=== PATIENT | male | born 1945 | race Caucasian/White ===

== ENCOUNTER 2018-12-01 04:28 | Inpatient (IN) | payer OTHER ==
[2018-12-01] MEDS ORDERED: ACETAMINOPHEN 1000 MG/100 ML VIAL (NON FORMULARY) IVPB ONE (04:38)
[2018-12-01] MEDS ORDERED: LACTATED RINGERS SOLUTION 1000 ML INFUS.BAG IV ONE (04:39)
--- NOTE | 2018-12-01 04:43 | PDOC ---
Attending Attestation - Resident Resident Name: Leonel Cesar - ED Attending Attestation I have performed the following: I have examined & evaluated the patient, The case was reviewed & discussed with the resident, I agree w/resident's findings & plan - HPI HPI: 12/01/18 05:35 73-year-old male with fever sent from an extended care facility with decreased oxygen saturation, tracheostomy in place - Physicial Exam PE: 12/01/18 05:36 Agree with resident's exam - Critical Care Time Total Critical Care Time: 45 Critical Care Statement: The care of this patient involved high complexity decision making to prevent further life threatening deterioration of the patient 's condition and/or to evaluate & treat vital organ system(s) failure or risk of failure. - Medical Decision Making 12/01/18 05:37 73-year-old male with fever , patient has what appears to be tube feedings at the tracheostomy site possibly suggesting aspiration Chest x-ray is extremely poor quality though left lower lobe infiltrate cannot be excluded Zosyn and vancomycin initiated Plan for admission to ICU due to decreasing blood pressures and elevated lactic acid level Patient's son has been in the emergency department and has been notified by ED staff S was follows condition
[2018-12-01 04:59] LABS: BASO % 0.7 % (0-2.0); EOS % 0.3 % (0-4.5); HEMATOCRIT 36.3 % (35.4-49); HEMOGLOBIN 11.3 GM/dL (11.7-16.9); LYMPH % 16.8 % (8-40); MCH 27.7 pg (25.7-33.7); MEAN CELL VOLUME 89.4 fl (80-96); MEAN PLT VOLUME 8.6 fl (7.5-11.1); MONO % 8.9 % (3.8-10.2); NEUT % 73.3 % (42.8-82.8); PLATELET COUNT 203 K/MM3 (134-434); RBC 4.06 M/mm3 (4.00-5.60); RDW 18.3 % (11.9-15.9)
[2018-12-01 05:02] LABS: WHITE BLOOD COUNT 1.7 K/mm3 (4.0-10.0)
[2018-12-01 05:06] LABS: URINE APPEARANCE CLEAR; URINE BILIRUBIN NEGATIVE (NEGATIVE); URINE COLOR YELLOW; URINE GLUCOSE (UA) NEGATIVE (NEGATIVE); URINE KETONE NEGATIVE (NEGATIVE); URINE LEUK ESTERASE NEGATIVE (NEGATIVE); URINE NITRITE NEGATIVE (NEGATIVE); URINE PROTEIN TRACE (NEGATIVE); URINE UROBILINOGEN 0.2 mg/dL (0.2-1.0)
[2018-12-01 05:12] LABS: INR 1.15 (0.83-1.09); PROTHROMBIN TIME (PATIENT) 13.6 SEC (9.7-13.0)
[2018-12-01 05:14] LABS: ACTIVATED PTT 27.1 SECONDS (25.2-36.5)
[2018-12-01] MEDS ORDERED: PIPERACILLIN/TAZOB 4.5 GM 4.5 GM in DEXTROSE 5%-WATER 100 ML IVPB ONE (05:20)
[2018-12-01] MEDS ORDERED: VANCOMYCIN HCL 1,500 MG in DEXTROSE 5%-WATER - 500 ML IVPB ONE (05:20)
--- NOTE | 2018-12-01 05:20 | PDOC ---
History of Present Illness - General Chief Complaint: SIRS, Suspected/Possible Stated Complaint: SEPSIS Time Seen by Provider: 12/01/18 04:37 History Source: Family (Son present at bedside.), [place] Records Exam Limitations: Clinical Condition - History of Present Illness Initial Comments: HPI: 73 y/o male BIBEMS to [facility] ER from [facility] with fever of 106, tachycardia, and hypoxic to high 80s (per EMS crew). The pt is trach and PEG dependent s/p CVA approx. one month ago. Care was provided at [facility]. Pt was discharged to [facility] on Wednesday. On arrival, the pt is unable to provide a HPI secondary to clinical condition. Son is also present at bedside, but is unable to provide details of medical history. He does report the pt had a fever around 100 yesterday but is unaware of the cause. Son reports the pt is normally able to follow commands but is unable to speak. Code status: Full code per son. PCP: Dr. Marti (in the Normal) Medical Hx: - CVA w/ left sided hemiparesis - S/p right sided craniotomy - S/p trach and PEG - HTN - Diabetes - BPH Review of Systems: Unable to obtain secondary to pts clinical condition. Physical Examination: Constitutional: Toxic appearing adult male. Initially found on EMS stretcher in resus room. Alert with eyes open. Trach collar in place receiving BVM ventilation. Head: S/p right craniotomy. Protective helmet in place. Eyes: Pupils 4mm and PERRL bilaterally. Unable to assess EOM. Sclerae white. Conjunctiva moist and not injected. Nose: No nasal discharge. Neck: Trach collar in place with tube feed versus purulent discharge around the connector. Cardiovascular / Chest: Tachycardic rate with regular rhythm. No murmur, rubs, clicks, or gallops. Peripheral pulses: radial pulses full. Respiratory: Rapid shallow breathing with assistance. Breathing unlabored. Equal chest rise and fall. Clear to auscultation bilaterally. No stridor, no wheezing, no rhonchi. Gastrointestinal: abdomen is soft, non-tender, non-distended. PEG insertion site in LUQ. Site well appearing without fluctuance or induration. Neuro: Alert but would not follow commands. Moving right arm and leg spontaneously. Skin: Warm and dry. Full thickness pressure ulcer to left lateral malleolus with dressing in place; no warmth, erythema, or purulent discharge. Lymphatics: No cervical, supraclavicular, epitrochlear or inguinal nodes palpated. MDM: *Reviewed vital signs, nursing notes, and prior visit documentation (if available). 73 y/o male s/p recent CVA w/ left side hemiparesis, s/p right craniotomy, trach , and PEG. Presenting with high fever and tachycardia concerning for sepsis. ED sepsis order set initiated. Pt hypoxic on EMS arrival, however SPO2 >98% on arrival while receiving BVM ventilation. Suspect central fever versus possible aspiration pneumonia versus tracheitis versus other infectious source. IVFB ordered. CBC revealed leukopenia and neutropenia. Lactic acid elevated. UA unremarkable for pyuria, nitrites, or leukocyte esterase. Urine culture pending. CXR unremarkable for consolidation per ED wet read. Radiology report pending. Vancomycin and Zosyn ordered for broad spectrum coverage for neutropenic fever. Pt initially normotensive but BP quickly tended downward after initial assessment. Right subclavian line placed after consent was obtained from son. BP trended upward after line was placed. No vasopressor agents initiated. Will admit pt to ICU for septic neutropenic fever. In person consultation with resident Dr. Andrew of ICU service. Verbally appraised of the pts HPI, ED course, and current plan of management. Will admit the pt to ICU. In person consultation with Dr. Damico, hospitalist attending. Verbally appraised of the pts HPI, ED course, and current plan of management. Requested CT of head, chest, and abdomen/pelvis to evaluate for infection source. Will admit the pt to ICU. Leonel Cesar M.D., PGY1 Emergency Medicine Resident Past History - Past Medical History Allergies/Adverse Reactions: Allergies Allergy/AdvReac Type Severity Reaction Status Date / Time No Known Allergies Allergy Verified 12/01/18 04:48 Anemia: Yes CVA: Yes (intracerebral hemmorhage) COPD: Yes (resp failure, trach, vented) Diabetes: Yes GI Disorders: Yes (UTI) Disorders: Yes (GERD) HTN: Yes - Surgical History GI Surgery: Yes (G-TUBE) - Suicide/Smoking/Psychosocial Hx Smoking History: Unknown if ever smoked *Physical Exam - Vital Signs Last Vital Signs Temp Pulse Resp BP Pulse Ox 105.1 F H 147 H 30 H 147/81 97 12/01/18 04:57 12/01/18 04:48 12/01/18 04:52 12/01/18 04:48 12/01/18 04:48 Procedures - Additional Procedures Progress: Subclavian Central Line Procedure Note INDICATION: Septic with hypotension. [employer] [employer] DIRECTOR: Leonel Cesar M.D. PGY1 ATTENDING PHYSICIAN: Dr. Mckoy In Attendance (Y/N) Y Ultrasound Used: N CONSENT: Consent was obtained from pt's son prior to the procedure. Indications, risks, and benefits were explained at length. PROCEDURE SUMMARY: A time out was performed. My hands were washed immediately prior to the procedure. I wore a surgical cap, mask with protective eyewear, sterile gown and sterile gloves throughout the procedure. The patient was placed in Trendelenburg position. The right chest region was prepped using chlorhexidine scrub and draped in sterile fashion using a sterile drape. The introducer needle was inserted approximately two centimeters lateral to and 1 cm inferior to the normal curvature of the patient's clavicle. Venous blood was withdrawn. The syringe was removed and a guidewire was advanced into the introducer needle. A small incision was made at the skin surface with a scalpel and the introducer needle was exchanged for a dilator over the guidewire. After appropriate dilation was obtained, the dilator was exchanged over the wire for a triple lumen central venous catheter. The wire was removed and the catheter was sutured in place at 13 cm. A biopatch and sterile tegaderm was placed over the catheter at the insertion site. The patient tolerated the procedure without any hemodynamic compromise. At time of procedure completion, all ports aspirated and flushed properly. Tip of line present in superior vena cava on CXR per ED wet read. Official radiology report pending. Estimated blood loss is <5cc. ED Treatment Course - LABORATORY CBC & Chemistry Diagram: 12/01/18 04:35 12/01/18 04:35 - ADDITIONAL ORDERS Additional order review: Laboratory Results 12/01/18 04:35 PT with INR 13.60 H INR 1.15 H PTT (Actin FS) 27.1 12/01/18 04:35 RBC 4.06 MCV 89.4 MCHC 31.0 L RDW 18.3 H MPV 8.6 Neutrophils % 73.3 Lymphocytes % 16.8 Monocytes % 8.9 Eosinophils % 0.3 Basophils % 0.7 - RADIOLOGY Radiology Studies Ordered: Category Date Time Status CHEST X-RAY PORTABLE* [RAD] Stat Radiology 12/01/18 04:37 Taken CXRPORT [CHEST X-RAY PORTABLE*] [RAD] Stat Radiology 12/01/18 05:18 Ordered - Medications Given in the ED: ED Medications Discontinued Medications Generic Name Dose Route Start Last Admin Trade Name Freq PRN Reason Stop Dose Admin Acetaminophen 1,000 mg 12/01/18 04:38 12/01/18 04:55 Ofirmev Injection - IVPB 12/01/18 04:39 1,000 mg ONCE ONE Administration Lactated Ringer's 2,000 ml 12/01/18 04:39 12/01/18 04:53 Lactated Ringers Solution IV 12/01/18 04:40 2,000 ml ONCE ONE Administration *DC/Admit/Observation/Transfer Diagnosis at time of Disposition: Systemic inflammatory response syndrome (SIRS), Neutropenic sepsis, Lactic acid acidosis - Discharge Dispostion Condition at time of disposition: Fair Decision to Admit order: Yes - Referrals - Patient Instructions - Post Discharge Activity
[2018-12-01 05:24] LABS: ALBUMIN 2.4 g/dl (3.4-5.0); BILIRUBIN,TOTAL 0.6 mg/dL (0.2-1); CALCIUM 8.6 mg/dL (8.5-10.1); CREATININE 1.2 mg/dL (0.55-1.3); POTASSIUM 4.2 mmol/L (3.5-5.1); TOT PROT 6.8 g/dl (6.4-8.2)
[2018-12-01] MEDS ORDERED: PIPERACILLIN/TAZOB 4.5 GM 4.5 GM/100 ML BAG IVPB ONE (05:38)
[2018-12-01 05:52] LABS: ARTERIAL BLD GAS O2 SATURATION 96.1 % (95-98); ARTERIAL BLOOD GAS BASE EXCESS 0.6 meq/l (-2-2); ARTERIAL BLOOD GAS PCO2 30.7 mmHg (35-45); ARTERIAL BLOOD GAS PO2 74.9 mmHg (80-105); ARTERIAL BLOOD GAS pH 7.49 (7.35-7.45); CARBOXYHEMOGLOBIN 1.7 % (0-2)
--- NOTE | 2018-12-01 08:18 | CONSULT ---
Consult Consult Specialty:: Critical Care Referred by:: Dr. Cesar Reason for Consultation:: Neutropenic fever - History of Present Illness Chief Complaint: Fever History of Present Illness: The patient is a 73 yo m w/ PMH right sided hemorrhagic stroke (w/residual Lt hemiparesis and expressive aphasia s/p craniotomy 10/2018) at [facility] who was BIBEMS from [facility] after he was found to have a rectal Temp of 106. The patient was found to be saturating in the mid 80's in the field which improved after suctioning. In the ED, the patient was found to be neutropenic to 1.7 with an ANC of 1.3. Bcx, ucx, sputum cultures sent. 2L NS bolused. Vancomycin and Zosyn started. CTAP ordered. Prior to going to CT, the patient was noted to be hypotensive. Fluid boluses administered and a subclavian central line was placed. After central line placed, patient was noted to have MAP >65, therefore no pressors were started. CT head negative. CXR w/ possible infiltrate on the right. CTAP w/ chronic fluid filled mass in the pelvis and b/l infiltrates vs atalectasis in the lower lobes. 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: CVA (left sided hemiparesis and expressive aphasia) Cardio/Vascular: Yes: HTN Pulmonary: Yes: Other (trached, chronically vent dependent) Gastrointestinal: Yes: Other (s/p PEG) Renal/: Yes: BPH - Past Surgical History Additional Surgical History: PEG tube placement, Craniotomy - Smoking History Smoking history: Unknown if ever smoked - Social History Usual Living Arrangement: Skilled Nursing Home Medications - Allergies Allergies/Adverse Reactions: Allergies Allergy/AdvReac Type Severity Reaction Status Date / Time No Known Allergies Allergy Verified 12/01/18 04:48 Review of Systems Unable to obtain ROS, reason: patient w/ AMS, Physical Exam Vital Signs: Vital Signs Temperature 102.5 F H 12/01/18 05:40 Pulse Rate 118 H 12/01/18 05:40 Respiratory Rate 20 12/01/18 05:40 Blood Pressure 82/45 L 12/01/18 06:47 O2 Sat by Pulse Oximetry (%) 98 12/01/18 05:40 Constitutional: Yes: Other (patient w/ mild grimacing, shifting in bed.) Eyes: Yes: Conjunctiva Clear, PERRL HENT: Yes: Other (s/p craniotomy. 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 No: Tenderness Wound/Incision: Yes: Other (stage 2 ulcer on the back of the right forearm. Ulcer is clean w/o signs of infection. wound on the left lateral malleolus is clean and dry w/o signs of infection.) Labs: CBC, BMP 12/01/18 04:35 12/01/18 04:35 Imaging - Results Chest X-ray: Report Reviewed, Image Reviewed Cat Scan: Report Reviewed, Image Reviewed Assessment/Plan The patient is a 73 yo m w/ PMH right sided hemorrhagic stroke w/residual Lt hemiparesis and expressive aphasia who was BIBEMS from [facility] after he was found to have a rectal Temp of 106. #Neuro -expressive aphasia at baseline. -per family at bedside, he is more lethargic/sleepy presently. -off sedation. #Pulmonary: Likely sepsis 2/2 PNA vs aspiration pneumonitis -patient s/p trach and chronically vented. -possible PNA vs atalectasis seen on CTAP -per EMS, feeds seen coming out of trach; possible aspiration PNA vs pneumonitis -On vanc/Zosyn, day 1 -maintain sat >90 -ID consulted #Cardio -patient w/ transient episodes of hypotension w/ MAP <60 responsive to fluids -Rt subclavian CVC placed in ER. -CVP monitoring in progess. -S/P 2L NS in ER -will bolus additional 2L LR -LR @ 75 -Maintin MAP >60-65 -will being Levophed if hypotension refractory to fluid develops #GI -PEG in place -CTAP shows fluid collection in pelvis w/ calcifications -will obtain records from [facility] to see if collection chronic. #Renal -BUN/Creatiine WNL -monitor daily for signs of renal failure -UA not indicative of UTI #ID -ID consulted -abx as above -Lactic acidosis on admission (3.1) downtrending after hydration #FEN -LR @ 75; S/P boluses. maintain CVP 8-10 -Monitor lytes -NPO for now #Prophy -Heparin SQ 5k units TID #Dispo -admit ICU -GOC discussed w/ family at bedside. Patient DNR at this time. Family wants all other interventions.
[2018-12-01] MEDS ORDERED: SODIUM CHLORIDE 1,000 ML IV STA ×2 (09:08→11:07)
[2018-12-01] MEDS ORDERED: PIPERACILLIN/TAZOB 3.375 GM 3.375 GM in DEXTROSE 5%-WATER - 50 ML IVPB SCH ×2 (11:45→12:00)
[2018-12-01] MEDS ORDERED: PIPERACILLIN/TAZOBACTAM 3.375 GM VIAL IVPB ONE ×2 (11:56→19:15)
[2018-12-01] MEDS ORDERED: DEXTROSE 5%-WATER - 50 ML IVPB ONE ×2 (11:56→19:15)
--- NOTE | 2018-12-01 12:00 | HP ---
Admitting History and Physical - Admission Chief Complaint: sent in for fever History of Present Illness: 73 y/o male BIBEMS to [facility] ER from [facility] with fever of 106, tachycardia, and hypoxic to high 80s (per EMS crew). The pt is trach and PEG dependent s/p Right MCA CVA approx. one month ago.s/p cranietomy Care was provided at [facility]. Pt was discharged to [facility] on Wednesday. 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 - Smoking History Smoking history: Unknown if ever smoked Home Medications - Allergies Allergies/Adverse Reactions: Allergies Allergy/AdvReac Type Severity Reaction Status Date / Time No Known Allergies Allergy Verified 12/01/18 04:48 Review of Systems Unable to obtain ROS, reason: unable to talk Physical Examination Vital Signs: Vital Signs Temperature 100.6 F H 12/01/18 09:18 Pulse Rate 90 12/01/18 11:31 Respiratory Rate 21 H 12/01/18 11:31 Blood Pressure 87/50 L 12/01/18 09:18 O2 Sat by Pulse Oximetry (%) 96 12/01/18 11:31 Constitutional: Yes: Calm, Other (head helmet) Neck: Yes: Other (trach) Cardiovascular: Yes: Regular Rate and Rhythm, S1, S2 Respiratory: Yes: CTA Bilaterally Gastrointestinal: Yes: Normal Bowel Sounds, Soft, Other ( g tube) Edema: No Neurological: Yes: Aphasia, Other (left side weakness) Labs: CBC, BMP 12/01/18 04:35 12/01/18 04:35 Imaging - Results Cat Scan: Report Reviewed (decompressive craniotomy) Problem List - Problems (1) Lactic acid acidosis Assessment/Plan: broad abx ID and pulm ivf trend lactic acid cultures pending ct -scan abdomen/pelvis - fluid filled pelvic structure near the cecum fever now 100.6 monitor BP Code(s): E87.2 - ACIDOSIS (2) Neutropenic sepsis Assessment/Plan: absolute neutrophil count noted iv abx heme on board palliative team consulted vent [facility] Code(s): A41.9 - SEPSIS, UNSPECIFIED ORGANISM; D70.9 - NEUTROPENIA, UNSPECIFIED (3) Status post CVA Assessment/Plan: s/p trach and peg dvt ppx Code(s): Z86.73 - PRSNL HX OF TIA (TIA), AND CEREB INFRC W/O RESID DEFICITS
--- NOTE | 2018-12-01 12:10 | PN ---
Teaching Attending Note Name of Resident: Jermaine Guo ATTENDING PHYSICIAN STATEMENT I saw and evaluated the patient. I reviewed the resident's note and discussed the case with the resident. I agree with the resident's findings and plan as documented. SUBJECTIVE: Pt seen and examined in the ICU. Vented, poorly responsive. Blood pressures borderline but not on pressors. High fevers. OBJECTIVE: Vital Signs Period Temp Pulse Resp BP Sys/Howe Pulse Ox Last 24 Hr 100.3 F-105.1 F 90-147 20-30 82-147/45-81 96-98 Intake & Output 11/28/18 11/29/18 11/30/18 12/01/18 23:59 23:59 23:59 23:59 Output Total 100 Balance -100 Weight 66.224 kg Gen: vented, poorly responsive Heart: tachycardic, regular Lung: scattered rhonchi Abd: soft, nontender Ext: no edema CBC, BMP 12/01/18 04:35 12/01/18 04:35 ABG Results ABG pH 7.49 (7.35-7.45) H 12/01/18 05:15 ABG pCO2 at Pt Temp 30.7 mmHg (35-45) L 12/01/18 05:15 ABG pO2 at Pt Temp 74.9 mmHg (80-105) L 12/01/18 05:15 ABG HCO3 23.0 mmol/L (22-27) 12/01/18 05:15 ABG O2 Sat (Measured) 96.1 % (95-98) 12/01/18 05:15 ABG O2 Content 15.3 % vol (15-22) 12/01/18 05:15 ABG Base Excess 0.6 meq/l (-2-2) 12/01/18 05:15 Active Medications Acetaminophen (Ofirmev Injection -) 1,000 mg IVPB Q6H PRN PRN Reason: PAIN OR FEVER Heparin Sodium (Porcine) (Heparin -) 5,000 unit SQ TID GRETCHEN Piperacillin Sod/Tazobactam (Sod 3.375 gm/ Dextrose) 50 mls @ 100 mls/hr IVPB Q6H-IV GRETCHEN; Protocol Piperacillin Sod/Tazobactam (Sod 3.375 gm/ Dextrose) 50 mls @ 100 mls/hr IVPB Q6H-IV GRETCHEN Stop: 12/01/18 15:29 Lactated Ringer's (Lactated Ringers Solution) 1,000 ml in 1,000 mls @ 100 mls/ hr IV ASDIR GRETCHEN ASSESSMENT AND PLAN: Neutropenic Severe Sepsis Pneumonia Lactic Acidosis Chronic Respiratory Failure Recent Hemorrhagic Stroke - broad spectrum antibiotics - f/u cultures - check CVP - IVF boluses to keep CVP 8-12 - pressors if remains hypotensive - trend lactate - monitor urine output, creatinine - continue volume assist control - enteral feeds - DVT/GI prophylaxis - continue ICU monitoring critical care time spent in reviewing chart, evaluating patient and formulating plan 35 min
[2018-12-01] MEDS: LACTATED RINGERS SOLUTION 1,000 ML/1,000 ML INFUS.BAG IV SCH ×2 (13:02→23:46)
[2018-12-01] MEDS: ACETAMINOPHEN 1000 MG/100 ML VIAL (NON FORMULARY) IVPB PRN ×2 (13:04→20:46)
[2018-12-01] MEDS: HEPARIN NA (PORCINE) 5,000 UNITS/ML 1ML VIAL SQ SCH ×2 (13:05→22:50)
--- NOTE | 2018-12-01 13:14 | PN ---
Progress Note (short form) - Note Progress Note: ID CONSULT DICTATED FEBRILE NEUTROPENIA/ NEUTROPENIC SEPSIS PROBABLE ASP LLL PNEUMONIA POSSIBLE SEPSIS SECONDARY TO LUNG SOURCE S/P HEMORRHAGIC CVA/ CRANIECTOMY LACTIC ACIDOSIS AZOTEMIA PELVIC FLUID COLLECTION ? ETIOLOGY PENDING C/S EMPIRIC ZOSYN NEUTROPENIC PRECAUTIONS CRITICAL CARE TIME 35MIN
[2018-12-01 14:08] LABS: ANISOCYTOSIS 1+; MACROCYTOSIS 1+; OVALOCYTE 1+; PLATELET ESTIMATE NORMAL
[2018-12-01] MEDS ORDERED: LORazepam 2 MG/ML SDV VIAL IVPUSH ONE ×2 (14:23→21:27)
[2018-12-01] MEDS ORDERED: LORazepam 2 MG/ML SDV VIAL ONE (14:26)
--- NOTE | 2018-12-01 14:43 | CONSULT ---
Consultation: REQUESTING PROVIDER: CONSULT REQUEST: We have been asked to medically evaluate this patient for severe neutropenic sepsis . 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 was initially hypotensive responsive to ivf. imaging suggestive o possible aspiration LLL PNA. no prior record of neutropenia not on any chemotherapy. has been aggressively treated to lower fever and on broad spectrum abx. recent craneotomy and trach s/p cva, witnessed aspirating REVIEW OF SYSTEMS: unable to obtain PHYSICAL EXAMINATION Vital Signs - 24 hr 12/01/18 12/01/18 12/01/18 04:48 04:52 04:57 Temperature 105.1 F H 105.1 F H Pulse Rate 147 H Pulse Rate [ Apical] Respiratory 26 H 30 H Rate Blood Pressure 147/81 Blood Pressure [Left Arm] O2 Sat by Pulse 97 Oximetry (%) 12/01/18 12/01/18 12/01/18 05:40 06:47 08:40 Temperature 102.5 F H 100.3 F H Pulse Rate Pulse Rate [ 118 H 110 H Apical] Respiratory 20 23 H Rate Blood Pressure Blood Pressure 94/53 L 82/45 L 104/67 [Left Arm] O2 Sat by Pulse 98 98 Oximetry (%) 12/01/18 12/01/18 12/01/18 09:00 09:18 09:30 Temperature 100.3 F H 100.6 F H 100.6 F H Pulse Rate 102 H 100 H 96 H Pulse Rate [ Apical] Respiratory 32 H 20 24 H Rate Blood Pressure 77/49 L 87/50 L 89/45 L Blood Pressure [Left Arm] O2 Sat by Pulse Oximetry (%) 12/01/18 12/01/18 12/01/18 10:00 10:30 11:00 Temperature 100.2 F H 100.1 F H 100.7 F H Pulse Rate 116 H 105 H 98 H Pulse Rate [ Apical] Respiratory 24 H 34 H 18 Rate Blood Pressure 120/90 99/56 L 97/50 L Blood Pressure [Left Arm] O2 Sat by Pulse Oximetry (%) 12/01/18 12/01/18 12/01/18 11:31 12:00 12:30 Temperature 101.3 F H 101.3 F H Pulse Rate 90 102 H 100 H Pulse Rate [ Apical] Respiratory 21 H 22 H 18 Rate Blood Pressure 100/60 102/65 Blood Pressure [Left Arm] O2 Sat by Pulse 96 Oximetry (%) 12/01/18 12/01/18 12/01/18 13:00 14:00 14:42 Temperature 101.3 F H 100.9 F H Pulse Rate 104 H 112 H Pulse Rate [ Apical] Respiratory 20 23 H 30 H Rate Blood Pressure 120/57 L 116/63 Blood Pressure [Left Arm] O2 Sat by Pulse Oximetry (%) GENERAL: lethargic HEAD: Normal with no signs of trauma. NECK: supple LUNGS: diffuse ronchi HEART: tachycardic, regular, s1s2 ABDOMEN: Soft, not distended, normoactive bowel sounds NEUROLOGICAL: unable to assess Laboratory Results - last 24 hr 12/01/18 12/01/18 12/01/18 04:35 04:35 04:35 WBC 1.7 L* RBC 4.06 Hgb 11.3 L Hct 36.3 MCV 89.4 MCH 27.7 MCHC 31.0 L RDW 18.3 H Plt Count 203 MPV 8.6 Absolute Neuts (auto) 1.3 L Neutrophils % 73.3 Neutrophils % (Manual) 65.7 Band Neutrophils % 6.7 Lymphocytes % 16.8 Lymphocytes % (Manual) 19.0 Monocytes % 8.9 Monocytes % (Manual) 6 Eosinophils % 0.3 Eosinophils % (Manual) 0.9 Basophils % 0.7 Basophils % (Manual) 0.0 Myelocytes % (Man) 1 Promyelocytes % (Man) 0 Blast Cells % (Manual) 0 Nucleated RBC % 0 Metamyelocytes 0 Hypochromia 1+ Platelet Estimate Normal Polychromasia 0 Poikilocytosis 1+ Anisocytosis 1+ Microcytosis 1+ Macrocytosis 1+ Ovalocytes 1+ PT with INR 13.60 H INR 1.15 H PTT (Actin FS) 27.1 Anticoagulation Therapy Puncture Site ABG pH ABG pCO2 at Pt Temp ABG pO2 at Pt Temp ABG HCO3 ABG O2 Sat (Measured) ABG O2 Content ABG Base Excess [place] Test Carboxyhemoglobin Methemoglobin O2 Delivery Device Oxygen Flow Rate Vent Mode Vent Rate Mechanical Rate Pressure Support Vent Sodium 143 Potassium 4.2 Chloride 110 H Carbon Dioxide 22 Anion Gap 10 BUN 25 H Creatinine 1.2 Est GFR (CKD-EPI)AfAm 69.60 Est GFR (CKD-EPI)NonAf 60.05 POC Glucometer Random Glucose 111 H Lactic Acid Calcium 8.6 Total Bilirubin 0.6 AST 30 ALT 19 Alkaline Phosphatase 154 H Troponin I 0.02 Total Protein 6.8 Albumin 2.4 L Urine Color Urine Appearance Urine pH Ur Specific [place] Urine Protein Urine Glucose (UA) Urine Ketones Urine Blood Urine Nitrite Urine Bilirubin Urine Urobilinogen Ur Leukocyte Esterase Blood Type Antibody Screen 12/01/18 12/01/18 12/01/18 04:35 04:45 05:15 WBC RBC Hgb Hct MCV MCH MCHC RDW Plt Count MPV Absolute Neuts (auto) Neutrophils % Neutrophils % (Manual) Band Neutrophils % Lymphocytes % Lymphocytes % (Manual) Monocytes % Monocytes % (Manual) Eosinophils % Eosinophils % (Manual) Basophils % Basophils % (Manual) Myelocytes % (Man) Promyelocytes % (Man) Blast Cells % (Manual) Nucleated RBC % Metamyelocytes Hypochromia Platelet Estimate Polychromasia Poikilocytosis Anisocytosis Microcytosis Macrocytosis Ovalocytes PT with INR INR PTT (Actin FS) Anticoagulation Therapy No Result Required. Puncture Site No Result Required. ABG pH 7.49 H ABG pCO2 at Pt Temp 30.7 L ABG pO2 at Pt Temp 74.9 L ABG HCO3 23.0 ABG O2 Sat (Measured) 96.1 ABG O2 Content 15.3 ABG Base Excess 0.6 [place] Test No Result Required. Carboxyhemoglobin 1.7 Methemoglobin 0.1 O2 Delivery Device No Result Required. Oxygen Flow Rate No Result Required. Vent Mode No Result Required. Vent Rate No Result Required. Mechanical Rate No Result Required. Pressure Support Vent No Result Required. Sodium Potassium Chloride Carbon Dioxide Anion Gap BUN Creatinine Est GFR (CKD-EPI)AfAm Est GFR (CKD-EPI)NonAf POC Glucometer Random Glucose Lactic Acid 3.1 H* Calcium Total Bilirubin AST ALT Alkaline Phosphatase Troponin I Total Protein Albumin Urine Color Yellow Urine Appearance Clear Urine pH 6.0 Ur Specific [place] 1.019 Urine Protein Trace Urine Glucose (UA) Negative Urine Ketones Negative Urine Blood Negative Urine Nitrite Negative Urine Bilirubin Negative Urine Urobilinogen 0.2 Ur Leukocyte Esterase Negative Blood Type Antibody Screen 12/01/18 12/01/18 12/01/18 05:21 08:15 08:15 WBC RBC Hgb Hct MCV MCH MCHC RDW Plt Count MPV Absolute Neuts (auto) Neutrophils % Neutrophils % (Manual) Band Neutrophils % Lymphocytes % Lymphocytes % (Manual) Monocytes % Monocytes % (Manual) Eosinophils % Eosinophils % (Manual) Basophils % Basophils % (Manual) Myelocytes % (Man) Promyelocytes % (Man) Blast Cells % (Manual) Nucleated RBC % Metamyelocytes Hypochromia Platelet Estimate Polychromasia Poikilocytosis Anisocytosis Microcytosis Macrocytosis Ovalocytes PT with INR INR PTT (Actin FS) Anticoagulation Therapy Puncture Site ABG pH ABG pCO2 at Pt Temp ABG pO2 at Pt Temp ABG HCO3 ABG O2 Sat (Measured) ABG O2 Content ABG Base Excess [place] Test Carboxyhemoglobin Methemoglobin O2 Delivery Device Oxygen Flow Rate Vent Mode Vent Rate Mechanical Rate Pressure Support Vent Sodium Potassium Chloride Carbon Dioxide Anion Gap BUN Creatinine Est GFR (CKD-EPI)AfAm Est GFR (CKD-EPI)NonAf POC Glucometer 108 Random Glucose Lactic Acid 4.0 H* Calcium Total Bilirubin AST ALT Alkaline Phosphatase Troponin I Total Protein Albumin Urine Color Urine Appearance Urine pH Ur Specific [place] Urine Protein Urine Glucose (UA) Urine Ketones Urine Blood Urine Nitrite Urine Bilirubin Urine Urobilinogen Ur Leukocyte Esterase Blood Type A POSITIVE Antibody Screen Negative 12/01/18 12:00 WBC RBC Hgb Hct MCV MCH MCHC RDW Plt Count MPV Absolute Neuts (auto) Neutrophils % Neutrophils % (Manual) Band Neutrophils % Lymphocytes % Lymphocytes % (Manual) Monocytes % Monocytes % (Manual) Eosinophils % Eosinophils % (Manual) Basophils % Basophils % (Manual) Myelocytes % (Man) Promyelocytes % (Man) Blast Cells % (Manual) Nucleated RBC % Metamyelocytes Hypochromia Platelet Estimate Polychromasia Poikilocytosis Anisocytosis Microcytosis Macrocytosis Ovalocytes PT with INR INR PTT (Actin FS) Anticoagulation Therapy Puncture Site ABG pH ABG pCO2 at Pt Temp ABG pO2 at Pt Temp ABG HCO3 ABG O2 Sat (Measured) ABG O2 Content ABG Base Excess [place] Test Carboxyhemoglobin Methemoglobin O2 Delivery Device Oxygen Flow Rate Vent Mode Vent Rate Mechanical Rate Pressure Support Vent Sodium Potassium Chloride Carbon Dioxide Anion Gap BUN Creatinine Est GFR (CKD-EPI)AfAm Est GFR (CKD-EPI)NonAf POC Glucometer Random Glucose Lactic Acid 2.3 H* Calcium Total Bilirubin AST ALT Alkaline Phosphatase Troponin I Total Protein Albumin Urine Color Urine Appearance Urine pH Ur Specific [place] Urine Protein Urine Glucose (UA) Urine Ketones Urine Blood Urine Nitrite Urine Bilirubin Urine Urobilinogen Ur Leukocyte Esterase Blood Type Antibody Screen Active Medications Generic Name Dose Route Start Last Admin Trade Name Freq PRN Reason Stop Dose Admin Acetaminophen 1,000 mg 12/01/18 12:01 12/01/18 13:04 Ofirmev Injection - IVPB 1,000 mg Q6H PRN Administration PAIN OR FEVER Heparin Sodium (Porcine) 5,000 unit 12/01/18 14:00 12/01/18 13:05 Heparin - SQ 5,000 unit TID GRETCHEN Administration Lactated Ringer's 1,000 ml in 1,000 mls @ 100 mls/hr 12/01/18 12:00 12/01/18 13:02 Lactated Ringers Solution IV 100 mls/hr ASDIR GRETCHEN Administration Piperacillin Sod/Tazobactam 50 mls @ 100 mls/hr 12/01/18 18:00 Sod 3.375 gm/ Dextrose IVPB Q8H-IV GRETCHEN Protocol Lorazepam 1 mg 12/01/18 14:23 12/01/18 14:31 Ativan Injection - IVPUSH 12/01/18 14:24 1 mg ONCE ONE Administration ASSESSMENT/PLAN: This is a 73 yo m with 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 severe sepsis pulm source causinng neutropenia history of CVA with residual expressive aphasia and l hemiparesis with trach aspiration pna -unlikley medication induced, most likely provoked by infection -agressive fever management -broad spectrum abx Dispo: We will continue to follow the patient. Thank you for this consultative opportunity. Visit type - Emergency Visit Emergency Visit: Yes ED Registration Date: 12/01/18 Care time: The patient presented to the Emergency Department on the above date and was hospitalized for further evaluation of their emergent condition. - New Patient This patient is new to me today: Yes Date on this admission: 12/02/18 - Critical Care Critical Care patient: Yes Total Critical Care Time (in minutes): 45 Critical Care Statement: The care of this patient involved high complexity decision making to prevent further life threatening deterioration of the patient 's condition and/or to evaluate & treat vital organ system(s) failure or risk of failure.
--- NOTE | 2018-12-01 16:02 | EKG ---
Test Reason : Blood Pressure : / mmHG Vent. Rate : 106 BPM Atrial Rate : 106 BPM P-R Int : 134 ms QRS Dur : 084 ms QT Int : 354 ms P-R-T Axes : 067 050 056 degrees QTc Int : 470 ms SINUS TACHYCARDIA WITH PREMATURE ATRIAL COMPLEXES OTHERWISE NORMAL ECG NO PREVIOUS ECGS AVAILABLE Confirmed by BETH CHAVEZ, SUNNY ([id number]) on 12/01/2018 4:01:45 PM Referred By: Confirmed By:SUNNY CAMPOS MD
[2018-12-01] MEDS: PIPERACILLIN/TAZOB 3.375 GM 3.375 GM in DEXTROSE 5%-WATER - 50 ML IVPB SCH (19:19)
--- NOTE | 2018-12-01 23:11 | PN ---
Teaching Attending Note Name of Resident: Shereen Chen ATTENDING PHYSICIAN STATEMENT I saw and evaluated the patient. I reviewed the resident's note and discussed the case with the resident. I agree with the resident's findings and plan as documented. ASSESSMENT AND PLAN: 73 y/o patient with recent heorrhagic cva/craniotomy, chronic resp. failure, now with ? aspiration pneumonia, sepsis Neutropenia secondary to sepsis on zosyn normal coags/platelets check b12/folate/tsh will follow
[2018-12-02] MEDS ORDERED: SODIUM CHLORIDE 500 ML IV STA (00:17)
[2018-12-02] MEDS ORDERED: DEXTROSE 5%-WATER - 50 ML IVPB ONE ×3 (01:31→17:00)
[2018-12-02] MEDS ORDERED: PIPERACILLIN/TAZOBACTAM 3.375 GM VIAL IVPB ONE ×3 (01:31→17:00)
[2018-12-02] MEDS: PIPERACILLIN/TAZOB 3.375 GM 3.375 GM in DEXTROSE 5%-WATER - 50 ML IVPB SCH ×3 (01:45→17:34)
[2018-12-02] MEDS: ACETAMINOPHEN 1000 MG/100 ML VIAL (NON FORMULARY) IVPB PRN ×2 (05:07→12:06)
[2018-12-02] MEDS: HEPARIN NA (PORCINE) 5,000 UNITS/ML 1ML VIAL SQ SCH ×3 (05:14→21:48)
[2018-12-02 06:53] LABS: BASO % 0.5 % (0-2.0); EOS % 1.2 % (0-4.5); HEMATOCRIT 25.4 % (35.4-49); HEMOGLOBIN 8.1 GM/dL (11.7-16.9); LYMPH % 11.1 % (8-40); MCH 28.7 pg (25.7-33.7); MCHC 31.9 g/dl (32.0-35.9); MEAN CELL VOLUME 89.9 fl (80-96); MEAN PLT VOLUME 9.4 fl (7.5-11.1); MONO % 5.7 % (3.8-10.2); NEUT % 81.5 % (42.8-82.8); PLATELET COUNT 131 K/MM3 (134-434); RBC 2.82 M/mm3 (4.00-5.60); RDW 18.8 % (11.9-15.9); WHITE BLOOD COUNT 6.6 K/mm3 (4.0-10.0)
[2018-12-02] MEDS ORDERED: LACTATED RINGERS SOLUTION 1,000 ML/1,000 ML INFUS.BAG IV SCH ×2 (07:57→22:06)
--- NOTE | 2018-12-02 08:07 | PN ---
Physical Exam: SUBJECTIVE: Patient seen and examined at bedside. No acute events overnight. OBJECTIVE: Vital Signs Period Temp Pulse Resp BP Sys/Howe Pulse Ox Last 24 Hr 99.6 F-101.3 F 90-120 16-34 77-128/45-90 96-100 GENERAL: The patient is awake, and alert. Aphasia at baseline. Following commands HEAD: helmet EYES: PERRL, extraocular movements intact, sclera anicteric, conjunctiva clear. No ptosis. LUNGS: Rhonchi in both dove, saturating well with trach HEART: Regular rate and rhythm, S1, S2 without murmur, rub or gallop. ABDOMEN: Soft, nontender, nondistended, normoactive bowel sounds, no guarding, no rebound, no hepatosplenomegaly, no masses. PEG tube in place EXTREMITIES: 2+ pulses, warm, well-perfused. Pitting edema in L hand NEUROLOGICAL: L hemiparesis, able to move R upper and lower extremitites. SKIN: Warm, dry, normal turgor. R forearm superficial ulceration and L lateral malleolus decubitus ulcer stage 1. Laboratory Results - last 24 hr 12/01/18 12/01/18 12/01/18 04:35 04:35 08:15 WBC RBC Hgb Hct MCV MCH MCHC RDW Plt Count MPV Absolute Neuts (auto) Neutrophils % Neutrophils % (Manual) 65.7 Band Neutrophils % 6.7 Lymphocytes % Lymphocytes % (Manual) 19.0 Monocytes % Monocytes % (Manual) 6 Eosinophils % Eosinophils % (Manual) 0.9 Basophils % Basophils % (Manual) 0.0 Myelocytes % (Man) 1 Promyelocytes % (Man) 0 Blast Cells % (Manual) 0 Nucleated RBC % Metamyelocytes 0 Hypochromia 1+ Platelet Estimate Normal Polychromasia 0 Poikilocytosis 1+ Anisocytosis 1+ Microcytosis 1+ Macrocytosis 1+ Ovalocytes 1+ Sodium 143 Potassium 4.2 Chloride 110 H Carbon Dioxide 22 Anion Gap 10 BUN 25 H Creatinine 1.2 Est GFR (CKD-EPI)AfAm 69.60 Est GFR (CKD-EPI)NonAf 60.05 Random Glucose 111 H Lactic Acid 4.0 H* Calcium 8.6 Total Bilirubin 0.6 AST 30 ALT 19 Alkaline Phosphatase 154 H Troponin I 0.02 Total Protein 6.8 Albumin 2.4 L Blood Type Antibody Screen 12/01/18 12/01/18 12/01/18 08:15 12:00 13:00 WBC RBC Hgb Hct MCV MCH MCHC RDW Plt Count MPV Absolute Neuts (auto) Neutrophils % Neutrophils % (Manual) Band Neutrophils % Lymphocytes % Lymphocytes % (Manual) Monocytes % Monocytes % (Manual) Eosinophils % Eosinophils % (Manual) Basophils % Basophils % (Manual) Myelocytes % (Man) Promyelocytes % (Man) Blast Cells % (Manual) Nucleated RBC % Metamyelocytes Hypochromia Platelet Estimate Polychromasia Poikilocytosis Anisocytosis Microcytosis Macrocytosis Ovalocytes Sodium Potassium Chloride Carbon Dioxide Anion Gap BUN Creatinine Est GFR (CKD-EPI)AfAm Est GFR (CKD-EPI)NonAf Random Glucose Lactic Acid 2.3 H* Calcium Total Bilirubin AST ALT Alkaline Phosphatase Troponin I Total Protein Albumin Blood Type A POSITIVE A POSITIVE Antibody Screen Negative 12/01/18 12/02/18 12/02/18 23:00 05:30 05:30 WBC 6.6 RBC 2.82 L Hgb 8.1 L Hct 25.4 L D MCV 89.9 MCH 28.7 MCHC 31.9 L RDW 18.8 H Plt Count 131 L D MPV 9.4 Absolute Neuts (auto) 5.4 Neutrophils % 81.5 Neutrophils % (Manual) Band Neutrophils % Lymphocytes % 11.1 D Lymphocytes % (Manual) Monocytes % 5.7 Monocytes % (Manual) Eosinophils % 1.2 D Eosinophils % (Manual) Basophils % 0.5 Basophils % (Manual) Myelocytes % (Man) Promyelocytes % (Man) Blast Cells % (Manual) Nucleated RBC % 0 Metamyelocytes Hypochromia Platelet Estimate Polychromasia Poikilocytosis Anisocytosis Microcytosis Macrocytosis Ovalocytes Sodium Potassium Chloride Carbon Dioxide Anion Gap BUN Creatinine Est GFR (CKD-EPI)AfAm Est GFR (CKD-EPI)NonAf Random Glucose Lactic Acid 1.6 1.4 Calcium Total Bilirubin AST ALT Alkaline Phosphatase Troponin I Total Protein Albumin Blood Type Antibody Screen Active Medications Generic Name Dose Route Start Last Admin Trade Name Freq PRN Reason Stop Dose Admin Acetaminophen 1,000 mg 12/01/18 12:01 12/02/18 05:07 Ofirmev Injection - IVPB 1,000 mg Q6H PRN Administration PAIN OR FEVER Heparin Sodium (Porcine) 5,000 unit 12/01/18 14:00 12/02/18 05:14 Heparin - SQ 5,000 unit TID GRETCHEN Administration Piperacillin Sod/Tazobactam 50 mls @ 100 mls/hr 12/01/18 18:00 12/02/18 01:45 Sod 3.375 gm/ Dextrose IVPB 100 mls/hr Q8H-IV GRETCHEN Administration Protocol Lactated Ringer's 1,000 ml in 1,000 mls @ 75 mls/hr 12/02/18 07:57 Lactated Ringers Solution IV ASDIR GRETCHEN ASSESSMENT/PLAN: The patient is a 73 yo m w/ PMH right sided hemorrhagic stroke w/residual Lt hemiparesis and expressive aphasia who was BIBEMS from [facility] after he was found to have a rectal Temp of 106. NEURO -History of hemorrhagic stroke with residual L hemiparesis -Expressive aphasia at baseline -Currently not on sedation PULM -Sepsis 2/2 PNA vs aspiration pneumonitis; feeds seen coming out of trach per EMS -S/p trach and chronically vented -CTAP: PNA v. Atalectasis -Zosyn -SpO2 >90 -ID consulted CARDIO/VASC -Transient episodes of hypotension w/ MAP <60 responsive to fluids -R subclavian line -CVP monitoring -LR @ 75 -Maintin MAP >60-65 HEME/ONC -Hgb trending down (11 on admission, currently 8.1) -Platelets trending down -B12, Folate and TSH pending -Stool occult -Does not require transfusion at this time, not on AC -WBC trending up GI -S/p PEG -CTAP: fluid filled mass with calcifications abutting cecum -Obtaining records from [facility] to see if collection chronic ID -Sepsis 2/2 PNA v. Aspiration -ID consulting -Zosyn -Lactic acidosis trending down after fluids -Tylenol PRN for fevers FEN -LR @ 75S/P boluses, CVP 8-10 -Monitor lytes -Enteral feeds PROPHYLAXIS -Heparin sc Dispo Pressures maintained with fluids only. Patient is DNR. Stable for transfer to floors. Visit type - Emergency Visit Emergency Visit: Yes ED Registration Date: 12/01/18 Care time: The patient presented to the Emergency Department on the above date and was hospitalized for further evaluation of their emergent condition. - New Patient This patient is new to me today: Yes Date on this admission: 12/02/18 - Critical Care Critical Care patient: Yes Total Critical Care Time (in minutes): 35 Critical Care Statement: The care of this patient involved high complexity decision making to prevent further life threatening deterioration of the patient 's condition and/or to evaluate & treat vital organ system(s) failure or risk of failure.
[2018-12-02 08:35] LABS: ALBUMIN 1.9 g/dl (3.4-5.0); BILIRUBIN,TOTAL 0.6 mg/dL (0.2-1); CALCIUM 7.9 mg/dL (8.5-10.1); CREATININE 0.9 mg/dL (0.55-1.3); MAGNESIUM 1.8 mg/dL (1.8-2.4); PHOSPHOROUS 2.5 mg/dL (2.5-4.9); POTASSIUM 3.1 mmol/L (3.5-5.1); TOT PROT 5.2 g/dl (6.4-8.2)
--- NOTE | 2018-12-02 11:04 | PN ---
Progress Note, Physician Chief Complaint: patient seen in bed and is sleeping temp 101.1 wbc count improved - Current Medication List Current Medications: Active Medications Acetaminophen (Ofirmev Injection -) 1,000 mg IVPB Q6H PRN PRN Reason: PAIN OR FEVER Last Admin: 12/02/18 05:07 Dose: 1,000 mg Heparin Sodium (Porcine) (Heparin -) 5,000 unit SQ TID GRETCHEN Last Admin: 12/02/18 05:14 Dose: 5,000 unit Piperacillin Sod/Tazobactam (Sod 3.375 gm/ Dextrose) 50 mls @ 100 mls/hr IVPB Q8H-IV GRETCHEN; Protocol Last Admin: 12/02/18 10:10 Dose: 100 mls/hr Lactated Ringer's (Lactated Ringers Solution) 1,000 ml in 1,000 mls @ 75 mls/ hr IV ASDIR GRETCHEN Last Admin: 12/02/18 09:00 Dose: 75 mls/hr - Objective Vital Signs: Vital Signs Temperature 101.1 F H 12/02/18 06:00 Pulse Rate 98 H 12/02/18 10:02 Respiratory Rate 22 H 12/02/18 09:10 Blood Pressure 114/61 12/02/18 06:00 O2 Sat by Pulse Oximetry (%) 99 12/02/18 10:02 Constitutional: Yes: Calm HENT: Yes: Other (head helmet) Cardiovascular: Yes: Regular Rate and Rhythm, S2 Respiratory: Yes: Mechanically Ventilated Gastrointestinal: Yes: Normal Bowel Sounds, Soft Neurological: Yes: Other (left side weakness) Labs: CBC, BMP 12/02/18 05:30 INR, PTT INR 1.15 (0.83-1.09) H 12/01/18 04:35 Problem List - Problems (1) Lactic acid acidosis Assessment/Plan: broad abx ID and pulm ivf trend lactic acid- now normal cultures pending ct -scan abdomen/pelvis - fluid filled pelvic structure near the cecum febrile monitor BP Code(s): E87.2 - ACIDOSIS (2) Neutropenic sepsis Assessment/Plan: absolute neutrophil count noted- wbc count improving iv abx heme on board palliative team consulted [facility] Microbiology 12/01/18 09:08 Sputum - Endotrachea Suction/Ventilator Sputum Culture - Preliminary Lactose Fermenting Neg Bacilli Beta Hemolytic Strep Pending Organism Code(s): A41.9 - SEPSIS, UNSPECIFIED ORGANISM; D70.9 - NEUTROPENIA, UNSPECIFIED (3) Status post CVA Assessment/Plan: s/p trach and peg dvt ppx Code(s): Z86.73 - PRSNL HX OF TIA (TIA), AND CEREB INFRC W/O RESID DEFICITS
--- NOTE | 2018-12-02 11:16 | PN ---
Progress Note (short form) - Note Progress Note: admitted from [facility] who just received patient on 11/26 from [facility] more alert still febrile no longer neutropenic Vital Signs Period Temp Pulse Resp BP Sys/Howe Pulse Ox Last 24 Hr 99.6 F-101.3 F 90-120 16-30 87-128/49-65 96-100 trach to vent cor-rrr lungs decreased bs at bases abd soft,n+GT ext no edema CBC, BMP 12/02/18 05:30 CBC WBC 6.6 K/mm3 (4.0-10.0) 12/02/18 05:30 RBC 2.82 M/mm3 (4.00-5.60) L 12/02/18 05:30 Hgb 8.1 GM/dL (11.7-16.9) L 12/02/18 05:30 Hct 25.4 % (35.4-49) L D 12/02/18 05:30 MCV 89.9 fl (80-96) 12/02/18 05:30 MCH 28.7 pg (25.7-33.7) 12/02/18 05:30 MCHC 31.9 g/dl (32.0-35.9) L 12/02/18 05:30 RDW 18.8 % (11.9-15.9) H 12/02/18 05:30 Plt Count 131 K/MM3 (134-434) L D 12/02/18 05:30 MPV 9.4 fl (7.5-11.1) 12/02/18 05:30 Absolute Neuts (auto) 5.4 K/mm3 (1.5-8.0) 12/02/18 05:30 Neutrophils % 81.5 % (42.8-82.8) 12/02/18 05:30 Neutrophils % (Manual) 65.7 % (42.8-82.8) 12/01/18 04:35 Band Neutrophils % 6.7 % 12/01/18 04:35 Lymphocytes % 11.1 % (8-40) D 12/02/18 05:30 Lymphocytes % (Manual) 19.0 % (8-40) 12/01/18 04:35 Monocytes % 5.7 % (3.8-10.2) 12/02/18 05:30 Monocytes % (Manual) 6 % (3.8-10.2) 12/01/18 04:35 Eosinophils % 1.2 % (0-4.5) D 12/02/18 05:30 Eosinophils % (Manual) 0.9 % (0-4.5) 12/01/18 04:35 Basophils % 0.5 % (0-2.0) 12/02/18 05:30 Basophils % (Manual) 0.0 % (0-2.0) 12/01/18 04:35 Myelocytes % (Man) 1 % (0-2) 12/01/18 04:35 Promyelocytes % (Man) 0 % (0-2) 12/01/18 04:35 Blast Cells % (Manual) 0 % (0-0) 12/01/18 04:35 Nucleated RBC % 0 % (0-0) 12/02/18 05:30 Metamyelocytes 0 % (0-2) 12/01/18 04:35 Hypochromia 1+ 12/01/18 04:35 Platelet Estimate Normal 12/01/18 04:35 Polychromasia 0 12/01/18 04:35 Poikilocytosis 1+ 12/01/18 04:35 Anisocytosis 1+ 12/01/18 04:35 Microcytosis 1+ 12/01/18 04:35 Macrocytosis 1+ 12/01/18 04:35 Ovalocytes 1+ 12/01/18 04:35 Active Medications Acetaminophen (Ofirmev Injection -) 1,000 mg IVPB Q6H PRN PRN Reason: PAIN OR FEVER Last Admin: 12/02/18 05:07 Dose: 1,000 mg Heparin Sodium (Porcine) (Heparin -) 5,000 unit SQ TID GRETCHEN Last Admin: 12/02/18 05:14 Dose: 5,000 unit Piperacillin Sod/Tazobactam (Sod 3.375 gm/ Dextrose) 50 mls @ 100 mls/hr IVPB Q8H-IV GRETCHEN; Protocol Last Admin: 12/02/18 10:10 Dose: 100 mls/hr Lactated Ringer's (Lactated Ringers Solution) 1,000 ml in 1,000 mls @ 75 mls/ hr IV ASDIR GRETCHEN Last Admin: 12/02/18 09:00 Dose: 75 mls/hr Potassium Chloride (Potassium Chloride 10 Meq Premix Ivpb -) 10 meq in 100 mls @ 100 mls/hr IVPB Q60M GRETCHEN Stop: 12/02/18 14:14 Microbiology 12/01/18 09:08 Sputum - Endotrachea Suction/Ventilator Sputum Culture - Preliminary Lactose Fermenting Neg Bacilli Beta Hemolytic Strep Pending Organism 12/01/18 04:45 Urine - Urine - Catheterized Urine Culture - Final NO GROWTH OBTAINED 12/01/18 04:36 Blood - Peripheral Venous Blood Culture - Preliminary NO GROWTH OBTAINED AFTER 24 HOURS, INCUBATION TO CONTINUE FOR 4 DAYS. 12/01/18 04:36 Blood - Peripheral Venous Blood Culture - Preliminary NO GROWTH OBTAINED AFTER 24 HOURS, INCUBATION TO CONTINUE FOR 4 DAYS. a/p fevers clinically improved still febrile but temps trending down no longer neutropenic ?aspiration unclear what the pelvic structure is- trying to obtain records from prior hospital, consider GI eval s/p hemorrhagic CVA with craniotomy continue zosyn,vanco f/u cultures clinically improved
[2018-12-02] MEDS: KCL 10 MEQ IVPB 10 MEQ/100 ML INFUS.BAG IVPB SCH ×3 (12:00→14:00)
[2018-12-02] MEDS: VANCOMYCIN 1,000 MG in DEXTROSE 5%-WATER - 250 ML IVPB SCH (12:30)
--- NOTE | 2018-12-02 12:35 | PN ---
Teaching Attending Note Name of Resident: Susan Cam ATTENDING PHYSICIAN STATEMENT I saw and evaluated the patient. I reviewed the resident's note and discussed the case with the resident. I agree with the resident's findings and plan as documented. SUBJECTIVE: Patient seen and examined in the ICU. Vented, arousable and intermittently able to follow some simple commands. Moving his right side spontaneously. Did not require pressors overnight. OBJECTIVE: Intake & Output 11/29/18 11/30/18 12/01/18 12/02/18 23:59 23:59 23:59 23:59 Intake Total 3000 1300 Output Total 2100 700 Balance 900 600 Weight 149 lb 7.574 oz 156 lb Last Vital Signs Temp Pulse Resp BP Pulse Ox 101.1 F H 98 H 27 H 114/61 99 12/02/18 06:00 12/02/18 10:02 12/02/18 11:45 12/02/18 06:00 12/02/18 10:02 Active Medications Heparin Sodium (Porcine) (Heparin -) 5,000 unit SQ TID GRETCHEN Last Admin: 12/02/18 05:14 Dose: 5,000 unit Piperacillin Sod/Tazobactam (Sod 3.375 gm/ Dextrose) 50 mls @ 100 mls/hr IVPB Q8H-IV GRETCHEN; Protocol Last Admin: 12/02/18 10:10 Dose: 100 mls/hr Lactated Ringer's (Lactated Ringers Solution) 1,000 ml in 1,000 mls @ 75 mls/ hr IV ASDIR GRETCHEN Last Admin: 12/02/18 09:00 Dose: 75 mls/hr Potassium Chloride (Potassium Chloride 10 Meq Premix Ivpb -) 10 meq in 100 mls @ 100 mls/hr IVPB Q60M GRETCHEN Stop: 12/02/18 14:14 Last Admin: 12/02/18 12:00 Dose: 100 mls/hr Vancomycin HCl 1,000 mg/ (Dextrose) 250 mls @ 166.667 mls/hr IVPB Q12H GRETCHEN; Protocol Gen: vented, awake and interactive Heart: S1S2 Lung: Vented, scattered rhonchi Abd: soft, nontender, (+) BS Ext: no edema HAND MARKER: Left hemiparesis Laboratory Results - last 24 hr 05/16/19 05/16/19 05/16/19 04:35 12:00 13:00 WBC RBC Hgb Hct MCV MCH MCHC RDW Plt Count MPV Absolute Neuts (auto) Neutrophils % Neutrophils % (Manual) 65.7 Band Neutrophils % 6.7 Lymphocytes % Lymphocytes % (Manual) 19.0 Monocytes % Monocytes % (Manual) 6 Eosinophils % Eosinophils % (Manual) 0.9 Basophils % Basophils % (Manual) 0.0 Myelocytes % (Man) 1 Promyelocytes % (Man) 0 Blast Cells % (Manual) 0 Nucleated RBC % Metamyelocytes 0 Hypochromia 1+ Platelet Estimate Normal Polychromasia 0 Poikilocytosis 1+ Anisocytosis 1+ Microcytosis 1+ Macrocytosis 1+ Ovalocytes 1+ Sodium Potassium Chloride Carbon Dioxide Anion Gap BUN Creatinine Est GFR (CKD-EPI)AfAm Est GFR (CKD-EPI)NonAf Random Glucose Lactic Acid 2.3 H* Calcium Phosphorus Magnesium Total Bilirubin AST ALT Alkaline Phosphatase Total Protein Albumin Vitamin B12 TSH Blood Type A POSITIVE 12/01/18 12/02/18 12/02/18 23:00 05:30 05:30 WBC 6.6 RBC 2.82 L Hgb 8.1 L Hct 25.4 L D MCV 89.9 MCH 28.7 MCHC 31.9 L RDW 18.8 H Plt Count 131 L D MPV 9.4 Absolute Neuts (auto) 5.4 Neutrophils % 81.5 Neutrophils % (Manual) Band Neutrophils % Lymphocytes % 11.1 D Lymphocytes % (Manual) Monocytes % 5.7 Monocytes % (Manual) Eosinophils % 1.2 D Eosinophils % (Manual) Basophils % 0.5 Basophils % (Manual) Myelocytes % (Man) Promyelocytes % (Man) Blast Cells % (Manual) Nucleated RBC % 0 Metamyelocytes Hypochromia Platelet Estimate Polychromasia Poikilocytosis Anisocytosis Microcytosis Macrocytosis Ovalocytes Sodium 144 Potassium 3.1 L Chloride 110 H Carbon Dioxide 24 Anion Gap 10 BUN 18 Creatinine 0.9 Est GFR (CKD-EPI)AfAm 98.55 Est GFR (CKD-EPI)NonAf 85.03 Random Glucose 55 L Lactic Acid 1.6 Calcium 7.9 L Phosphorus 2.5 Magnesium 1.8 Total Bilirubin 0.6 AST 25 ALT 12 L Alkaline Phosphatase 120 H Total Protein 5.2 L Albumin 1.9 L Vitamin B12 TSH Blood Type 12/02/18 12/02/18 05:30 08:40 WBC RBC Hgb Hct MCV MCH MCHC RDW Plt Count MPV Absolute Neuts (auto) Neutrophils % Neutrophils % (Manual) Band Neutrophils % Lymphocytes % Lymphocytes % (Manual) Monocytes % Monocytes % (Manual) Eosinophils % Eosinophils % (Manual) Basophils % Basophils % (Manual) Myelocytes % (Man) Promyelocytes % (Man) Blast Cells % (Manual) Nucleated RBC % Metamyelocytes Hypochromia Platelet Estimate Polychromasia Poikilocytosis Anisocytosis Microcytosis Macrocytosis Ovalocytes Sodium Potassium Chloride Carbon Dioxide Anion Gap BUN Creatinine Est GFR (CKD-EPI)AfAm Est GFR (CKD-EPI)NonAf Random Glucose Lactic Acid 1.4 Calcium Phosphorus Magnesium Total Bilirubin AST ALT Alkaline Phosphatase Total Protein Albumin Vitamin B12 762 TSH 1.53 Blood Type ASSESSMENT AND PLAN: Neutropenic Severe Sepsis Pneumonia Lactic Acidosis Chronic Respiratory Failure Recent Hemorrhagic Stroke - ABX per ID - f/u final cultures - Remove CVP - IVF - monitor urine output, creatinine - continue volume assist control - enteral feeds - DVT/GI prophylaxis - Floor Dr Mahajan
[2018-12-02] MEDS ORDERED: LACTATED RINGERS SOLUTION 500 ML/500 ML INFUS.BAG IV ONE (13:28)
--- NOTE | 2018-12-02 13:38 | EKG ---
Test Reason : Blood Pressure : / mmHG Vent. Rate : 119 BPM Atrial Rate : 119 BPM P-R Int : 136 ms QRS Dur : 080 ms QT Int : 322 ms P-R-T Axes : 053 004 041 degrees QTc Int : 452 ms SINUS TACHYCARDIA WITH PREMATURE SUPRAVENTRICULAR COMPLEXES INFERIOR INFARCT , AGE UNDETERMINED ABNORMAL ECG WHEN COMPARED WITH ECG OF 01-DEC-2018 07:55, INFERIOR INFARCT IS NOW PRESENT Confirmed by KELLY CHAVEZ, MARK ([id number]) on 12/02/2018 1:38:22 PM Referred By: RAMÍREZ OROZCO Confirmed By:MARK MENDOZA MD
--- NOTE | 2018-12-02 14:00 | PN ---
Physical Exam: SUBJECTIVE: Patient seen and examined resting in bed nad, t max 101.1 hemodynamically stable. mental status same as yesterday lethargic. no acute events OBJECTIVE: Vital Signs Period Temp Pulse Resp BP Sys/Howe Pulse Ox Last 24 Hr 99.6 F-101.1 F 91-120 16-30 87-128/50-61 99-100 GENERAL: lethargic HEAD: Normal with no signs of trauma. NECK: supple LUNGS: diffuse ronchi HEART: tachycardic, regular, s1s2 ABDOMEN: Soft, not distended, normoactive bowel sounds NEUROLOGICAL: unable to assess Laboratory Results - last 24 hr 12/01/18 12/01/18 12/01/18 04:35 12:00 13:00 WBC RBC Hgb Hct MCV MCH MCHC RDW Plt Count MPV Absolute Neuts (auto) Neutrophils % Neutrophils % (Manual) 65.7 Band Neutrophils % 6.7 Lymphocytes % Lymphocytes % (Manual) 19.0 Monocytes % Monocytes % (Manual) 6 Eosinophils % Eosinophils % (Manual) 0.9 Basophils % Basophils % (Manual) 0.0 Myelocytes % (Man) 1 Promyelocytes % (Man) 0 Blast Cells % (Manual) 0 Nucleated RBC % Metamyelocytes 0 Hypochromia 1+ Platelet Estimate Normal Polychromasia 0 Poikilocytosis 1+ Anisocytosis 1+ Microcytosis 1+ Macrocytosis 1+ Ovalocytes 1+ Sodium Potassium Chloride Carbon Dioxide Anion Gap BUN Creatinine Est GFR (CKD-EPI)AfAm Est GFR (CKD-EPI)NonAf Random Glucose Lactic Acid 2.3 H* Calcium Phosphorus Magnesium Total Bilirubin AST ALT Alkaline Phosphatase Total Protein Albumin Vitamin B12 TSH Blood Type A POSITIVE 12/01/18 12/02/18 12/02/18 23:00 05:30 05:30 WBC 6.6 RBC 2.82 L Hgb 8.1 L Hct 25.4 L D MCV 89.9 MCH 28.7 MCHC 31.9 L RDW 18.8 H Plt Count 131 L D MPV 9.4 Absolute Neuts (auto) 5.4 Neutrophils % 81.5 Neutrophils % (Manual) Band Neutrophils % Lymphocytes % 11.1 D Lymphocytes % (Manual) Monocytes % 5.7 Monocytes % (Manual) Eosinophils % 1.2 D Eosinophils % (Manual) Basophils % 0.5 Basophils % (Manual) Myelocytes % (Man) Promyelocytes % (Man) Blast Cells % (Manual) Nucleated RBC % 0 Metamyelocytes Hypochromia Platelet Estimate Polychromasia Poikilocytosis Anisocytosis Microcytosis Macrocytosis Ovalocytes Sodium 144 Potassium 3.1 L Chloride 110 H Carbon Dioxide 24 Anion Gap 10 BUN 18 Creatinine 0.9 Est GFR (CKD-EPI)AfAm 98.55 Est GFR (CKD-EPI)NonAf 85.03 Random Glucose 55 L Lactic Acid 1.6 Calcium 7.9 L Phosphorus 2.5 Magnesium 1.8 Total Bilirubin 0.6 AST 25 ALT 12 L Alkaline Phosphatase 120 H Total Protein 5.2 L Albumin 1.9 L Vitamin B12 TSH Blood Type 12/02/18 12/02/18 05:30 08:40 WBC RBC Hgb Hct MCV MCH MCHC RDW Plt Count MPV Absolute Neuts (auto) Neutrophils % Neutrophils % (Manual) Band Neutrophils % Lymphocytes % Lymphocytes % (Manual) Monocytes % Monocytes % (Manual) Eosinophils % Eosinophils % (Manual) Basophils % Basophils % (Manual) Myelocytes % (Man) Promyelocytes % (Man) Blast Cells % (Manual) Nucleated RBC % Metamyelocytes Hypochromia Platelet Estimate Polychromasia Poikilocytosis Anisocytosis Microcytosis Macrocytosis Ovalocytes Sodium Potassium Chloride Carbon Dioxide Anion Gap BUN Creatinine Est GFR (CKD-EPI)AfAm Est GFR (CKD-EPI)NonAf Random Glucose Lactic Acid 1.4 Calcium Phosphorus Magnesium Total Bilirubin AST ALT Alkaline Phosphatase Total Protein Albumin Vitamin B12 762 TSH 1.53 Blood Type Active Medications Generic Name Dose Route Start Last Admin Trade Name Freq PRN Reason Stop Dose Admin Heparin Sodium (Porcine) 5,000 unit 12/01/18 14:00 12/02/18 05:14 Heparin - SQ 5,000 unit TID GRETCHEN Administration Piperacillin Sod/Tazobactam 50 mls @ 100 mls/hr 12/01/18 18:00 12/02/18 10:10 Sod 3.375 gm/ Dextrose IVPB 100 mls/hr Q8H-IV GRETCHEN Administration Protocol Lactated Ringer's 1,000 ml in 1,000 mls @ 75 mls/hr 12/02/18 07:57 12/02/18 09:00 Lactated Ringers Solution IV 75 mls/hr ASDIR GRETCHEN Administration Potassium Chloride 10 meq in 100 mls @ 100 mls/hr 12/02/18 11:15 12/02/18 12: 57 Potassium Chloride 10 Meq Premix Ivpb - IVPB 12/02/18 14:14 100 mls/hr Q60M GRETCHEN Administration Vancomycin HCl 1,000 mg/ 250 mls @ 166.667 mls/hr 12/02/18 11:30 Dextrose IVPB Q12H GRETCHEN Protocol ASSESSMENT/PLAN: This is a 73 yo m with 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 severe sepsis pulm source causing neutropenia history of CVA with residual expressive aphasia and l hemiparesis with trach aspiration pna -unlikely medication induced, most likely provoked by infection and resolving with abx treatment wbc 6.6 absolute neut 5.4 today -aggressive fever management -broad spectrum abx Dispo: We will continue to follow the patient. Thank you for this consultative opportunity. Visit type - Emergency Visit Emergency Visit: Yes ED Registration Date: 12/01/18 Care time: The patient presented to the Emergency Department on the above date and was hospitalized for further evaluation of their emergent condition. - New Patient This patient is new to me today: No - Critical Care Critical Care patient: Yes Total Critical Care Time (in minutes): 45 Critical Care Statement: The care of this patient involved high complexity decision making to prevent further life threatening deterioration of the patient 's condition and/or to evaluate & treat vital organ system(s) failure or risk of failure. - Discharge Referral Referred to [facility] Med [facility] No
[2018-12-02] MEDS ORDERED: ACETAMINOPHEN 1000 MG/100 ML VIAL (NON FORMULARY) IVPB PRN (21:21)
[2018-12-03] MEDS: VANCOMYCIN 1,000 MG in DEXTROSE 5%-WATER - 250 ML IVPB SCH (00:01)
[2018-12-03] MEDS ORDERED: PIPERACILLIN/TAZOB 3.375 GM 3.375 GM in DEXTROSE 5%-WATER - 50 ML IVPB SCH ×2 (02:00→10:00)
[2018-12-03] MEDS ORDERED: PIPERACILLIN/TAZOBACTAM 3.375 GM VIAL IVPB ONE (02:59)
[2018-12-03] MEDS ORDERED: DEXTROSE 5%-WATER - 50 ML IVPB ONE (03:00)
[2018-12-03] MEDS ORDERED: ADENOSINE 6 MG/2 ML VIAL IVPUSH ONE ×4 (04:03→05:26)
[2018-12-03] MEDS ORDERED: METOPROLOL TARTRATE 5 MG/5 ML VIAL ONE ×3 (04:14→17:45)
[2018-12-03] MEDS ORDERED: MAGNESIUM SULF 50% (8.12 MEQ/2 ML-1 GM VIAL) IVPB ONE (04:16)
[2018-12-03 04:23] LABS: BASO % 0.3 % (0-2.0); EOS % 1.6 % (0-4.5); HEMOGLOBIN 9.5 GM/dL (11.7-16.9); LYMPH % 21.3 % (8-40); MCH 28.2 pg (25.7-33.7); MCHC 30.7 g/dl (32.0-35.9); MEAN CELL VOLUME 91.6 fl (80-96); MEAN PLT VOLUME 9.7 fl (7.5-11.1); MONO % 7.3 % (3.8-10.2); NEUT % 69.5 % (42.8-82.8); PLATELET COUNT 152 K/MM3 (134-434); RBC 3.39 M/mm3 (4.00-5.60); RDW 18.8 % (11.9-15.9); WHITE BLOOD COUNT 6.7 K/mm3 (4.0-10.0)
[2018-12-03] MEDS ORDERED: MAGNESIUM SULF 50% (8.12 MEQ/2 ML-1 GM VIAL) ONE (04:23)
[2018-12-03] MEDS ORDERED: POTASSIUM CHLORIDE 20 MEQ PREMIX IVPB 100 ML IVPB ONE ×2 (04:26→05:26)
[2018-12-03] MEDS ORDERED: AMIODARONE IN DEXTROSE,ISO-OSM 150 MG/100 ML BAG IVPB ONE ×2 (04:31→05:26)
[2018-12-03] MEDS ORDERED: SODIUM CHLORIDE 1,000 ML IV STA ×3 (04:34→05:34)
[2018-12-03] MEDS ORDERED: AMIODARONE IN DEXTROSE,ISO-OSM 360 MG/200 ML BAG IVPB SCH ×3 (04:45→06:05)
[2018-12-03 04:48] LABS: ALBUMIN 2.2 g/dl (3.4-5.0); BILIRUBIN,TOTAL 0.6 mg/dL (0.2-1); CALCIUM 8.1 mg/dL (8.5-10.1); MAGNESIUM 1.8 mg/dL (1.8-2.4); PHOSPHOROUS 3.4 mg/dL (2.5-4.9); POTASSIUM 3.8 mmol/L (3.5-5.1); TOT PROT 6.3 g/dl (6.4-8.2)
[2018-12-03] MEDS: ACETAMINOPHEN 1000 MG/100 ML VIAL (NON FORMULARY) IVPB PRN ×2 (05:30→14:41)
--- NOTE | 2018-12-03 05:34 | RAPID ---
<Poly Davidson - Last Filed: 12/03/18 06:36> Physical Examination Vital Signs: Vital Signs Temperature 99.1 F 12/03/18 01:00 Pulse Rate 94 H 12/03/18 02:18 Respiratory Rate 24 H 12/03/18 02:16 Blood Pressure 121/72 12/03/18 01:00 O2 Sat by Pulse Oximetry (%) 97 12/03/18 02:18 Labs: CBC, BMP 12/03/18 03:58 12/03/18 03:58 Rapid Response - Rapid Response Assessment: rapid response was called as patient was very tachycardic and tachypneic- upon arrival patients HR was in the high 190's low 200's and he was very tachypneic and looked in distress vitals: BP 127/82 HR 212 RR 30 94 % (patient is vent dependent) patient had been just transferred to the floors from ICU a few hours earlier as he is here for sepsis likely secondary to aspiration PE: GEn: in distress; grunting; shaking tachypenic cardio: tachycardic s1 s2 lungs; coarse breath sounds B/L pateint was in SVT with HR in 200's on monitor- given adenosine 6 X 1- monitor shwoed no P waves ( AC not started given patients reent craniotomy in october) given adenosine 12mg- read on monitor showed P waves- severe sinus tach given adenosein 6 again with HR reamining in the high 170'180's cbc/cmp/lactic acid/ekg done patient also given 1 L bolus; 2grams magneisum and 2 runs of 20 KCL patient was transferred to ICU and started on amiodarone drip found to have rectal temp 103.3 and lactic acid came back at 4.5 another liter of fluid was given patient in ICU for further monitoring <Jaycob Damico - Last Filed: 12/03/18 06:57> Physical Examination Vital Signs: Vital Signs Temperature 99.7 F H 12/03/18 03:35 Pulse Rate 154 H 12/03/18 04:10 Respiratory Rate 35 H 12/03/18 04:10 Blood Pressure 127/82 12/03/18 03:35 O2 Sat by Pulse Oximetry (%) 97 12/03/18 02:18 Findings/Remarks: Tachy to 180-200; s/p adenosine. Was moving with interference SVT appears to have some intervals of irregularity. Ruddy labs; has increased lactate and CXR looks to have persistent patchy infiltrates consistent with PNA. Empirically hydrating (repeating now as negative lactate). No improvement after 2L; started on amio drip. Need to check old records if he has any underlying arrhythmias; told residents to have day team in ICU reach OSH he was at with the hemorrhagic CVA. Checking echo for structural abnormalties. Due to need for additional nursing care and staffing will bring him back down to ICU. Initial 12 lead with interferance as well as repeat 12 lead. Repeating now. Labs: CBC, BMP 12/03/18 03:58 12/03/18 03:58
[2018-12-03] MEDS ORDERED: SODIUM CHLORIDE 1,000 ML IV SCH (05:45)
[2018-12-03] MEDS ORDERED: HEPARIN NA (PORCINE) 5,000 UNITS/ML 1ML VIAL SQ SCH (06:00)
[2018-12-03] MEDS ORDERED: LACTATED RINGERS SOLUTION 1,000 ML/1,000 ML INFUS.BAG IV SCH (06:00)
[2018-12-03] MEDS: LACTATED RINGERS SOLUTION 1,000 ML/1,000 ML INFUS.BAG IV SCH (06:05)
[2018-12-03] MEDS: HEPARIN NA (PORCINE) 5,000 UNITS/ML 1ML VIAL SQ SCH ×3 (06:16→21:48)
[2018-12-03] MEDS ORDERED: dilTIAZem HCL 50 MG/10 ML - 10 ML VIAL IVPUSH ONE (06:44)
[2018-12-03] MEDS ORDERED: dilTIAZem HCL 125 MG/25 ML - 25 ML VIAL ONE (06:46)
--- NOTE | 2018-12-03 06:47 | HOSP ---
Subjective - Review of Symptoms Events since last encounter: Rapid response called on the patient due to fever and extreme tachycardia (HR> 200). Patient was thought to be improving and therefore transferred to the floor at night. Floor CRITICAL CARE RN team attended the patient immediately and gave adenosine in the order of 6, 12, 6, 6 mg IVP but HR is still not controlled. Patient then received 2L of IV fluids, 2g of mag and 20 of KCL, and started on amiodarone drip. Labs are remarkable for lactate of 4.5 and temp of 103.3F. Patient evaluated in the ICU. Stopped the amiodarone gtt because patient has not been chemically converted and rate is still not controlled. Gave 2 cardizem IVP 20mg and 25mg respectively. However rate is still not controlled. Started the patient on cardizem gtt. Called Dr. Elizabeth's after hour service and spoke to him on the phone. Case discussed with him and cont. the cardizem gtt. Physical Examination Vital Signs: Vital Signs Temperature 99.7 F H 12/03/18 03:35 Pulse Rate 154 H 12/03/18 04:10 Respiratory Rate 35 H 12/03/18 04:10 Blood Pressure 127/82 12/03/18 03:35 O2 Sat by Pulse Oximetry (%) 97 12/03/18 02:18 Labs: CBC, BMP 12/03/18 03:58 12/03/18 03:58 Visit type - Emergency Visit Emergency Visit: No - New Patient This patient is new to me today: No - Critical Care Critical Care patient: Yes Total Critical Care Time (in minutes): 35 Critical Care Statement: The care of this patient involved high complexity decision making to prevent further life threatening deterioration of the patient 's condition and/or to evaluate & treat vital organ system(s) failure or risk of failure.
[2018-12-03] MEDS ORDERED: NOREPINEPHRINE BITARTRATE 4 MG/4 ML ML IV ONE (06:52)
[2018-12-03] MEDS ORDERED: NOREPINEPHRINE BITARTRATE 8,000 MCG in DEXTROSE 5%-WATER - 492 ML IV SCH (07:00)
[2018-12-03] MEDS ORDERED: DILTIAZEM INJECTION 125 MG in SODIUM CHLORIDE 100 ML IVPB SCH (07:00)
[2018-12-03 07:11] LABS: BASO % 0.3 % (0-2.0); EOS % 0.7 % (0-4.5); HEMATOCRIT 23.7 % (35.4-49); HEMOGLOBIN 7.6 GM/dL (11.7-16.9); LYMPH % 7.7 % (8-40); MCH 28.4 pg (25.7-33.7); MCHC 32.1 g/dl (32.0-35.9); MEAN CELL VOLUME 88.6 fl (80-96); MEAN PLT VOLUME 9.4 fl (7.5-11.1); MONO % 8.3 % (3.8-10.2); PLATELET COUNT 136 K/MM3 (134-434); RBC 2.67 M/mm3 (4.00-5.60); RDW 18.7 % (11.9-15.9); WHITE BLOOD COUNT 5.5 K/mm3 (4.0-10.0)
[2018-12-03 07:42] LABS: CALCIUM 7.7 mg/dL (8.5-10.1); CREATININE 0.7 mg/dL (0.55-1.3)
[2018-12-03] MEDS ORDERED: PT OWN MED DRAWER 7, Y5N ONE (08:07)
--- NOTE | 2018-12-03 09:44 | PN ---
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 12/01/18 04:36 Blood - Peripheral Venous Blood Culture - Preliminary NO GROWTH OBTAINED AFTER 48 HOURS, INCUBATION TO CONTINUE FOR 3 DAYS. 12/01/18 09:08 Sputum - Endotrachea Suction/Ventilator Gram Stain - Final 12/01/18 09:08 Sputum - Endotrachea Suction/Ventilator Sputum Culture - Preliminary Lactose Fermenting Neg Bacilli Beta Hemolytic Strep Pending Organism 12/01/18 18:44 Urine - Urine Mckeon Legionella Antigen - Final 12/01/18 18:44 Urine - Urine Mckeon Streptococcus pneumoniae Antigen (M - Final 12/01/18 04:45 Urine - Urine - Catheterized Urine Culture - Final NO GROWTH OBTAINED a/p fevers clinically improved-neutropenia resolved still febrile but temps trending down no longer neutropenic ?aspiration, ?intraabdominal abscess prior ct scan in October didnot show pelvic collection- to repeat with contrast 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
--- NOTE | 2018-12-03 09:55 | PN ---
Progress Note, Physician - Current Medication List Current Medications: Active Medications Acetaminophen (Ofirmev Injection -) 1,000 mg IVPB Q6H PRN PRN Reason: FEVER Last Admin: 12/03/18 05:30 Dose: 1,000 mg Chlorhexidine Gluconate (Hibiclens For Decolonization -) 1 applic TP HS GRETCHEN Heparin Sodium (Porcine) (Heparin -) 5,000 unit SQ TID GRETCHEN Last Admin: 12/03/18 06:16 Dose: 5,000 unit Lactated Ringer's (Lactated Ringers Solution) 1,000 ml in 1,000 mls @ 75 mls/ hr IV ASDIR GRETCHEN Last Admin: 12/03/18 06:05 Dose: 75 mls/hr Vancomycin HCl 1,000 mg/ (Dextrose) 250 mls @ 166.667 mls/hr IVPB Q12H GRETCHEN; Protocol Sodium Chloride (Normal Saline -) 1,000 mls @ 125 mls/hr IV ASDIR GRETCHEN Lactated Ringer's (Lactated Ringers Solution) 1,000 ml in 1,000 mls @ 1,000 mls /hr IV ASDIR GRETCHEN Last Admin: 12/03/18 06:51 Dose: 1,000 mls/hr Amiodarone HCl/Dextrose (Nexterone 360 Mg/200 Ml Bag) 360 mg in 200 mls @ 33.333 mls/hr IVPB ASDIR GRETCHEN; Protocol Last Admin: 12/03/18 07:04 Dose: 33.333 mls/hr Norepinephrine Bitartrate 8, (000 mcg/ Dextrose) 500 mls @ 18.75 mls/hr IV TITR GRETCHEN; Protocol Diltiazem HCl 125 mg/ Sodium (Chloride) 125 mls @ 5 mls/hr IVPB TITR GRETCHEN; Protocol Last Admin: 12/03/18 07:30 Dose: 5 mg/hr, 5 mls/hr Piperacillin Sod/Tazobactam (Sod 4.5 gm/ Dextrose) 100 mls @ 200 mls/hr IVPB Q8H-IV GRETCHEN; Protocol Mupirocin (Bactroban Ointment (For Decolonization) -) 1 applic NS BID GRETCHEN Stop: 12/08/18 09:59 - Objective Vital Signs: Vital Signs Temperature 99.7 F H 12/03/18 03:35 Pulse Rate 150 H 12/03/18 08:30 Respiratory Rate 19 18/19 08:30 Blood Pressure 103/57 L 12/03/18 07:30 O2 Sat by Pulse Oximetry (%) 99 12/03/18 08:30 Labs: CBC, BMP 12/03/18 06:45 12/03/18 06:45 INR, PTT INR 1.15 (0.83-1.09) H 12/01/18 04:35 Problem List - Problems (1) Neutropenic sepsis Assessment/Plan: broad abx ID and pulm ivf trend lactic acid- now normal cultures pending ct -scan abdomen/pelvis - fluid filled pelvic structure near the cecum febrile heme on board Code(s): A41.9 - SEPSIS, UNSPECIFIED ORGANISM; D70.9 - NEUTROPENIA, UNSPECIFIED (2) History of UTI Assessment/Plan: --CRE --Await cultures -Isolation Code(s): Z87.440 - PERSONAL HISTORY OF URINARY (TRACT) INFECTIONS (3) Abdominal fluid collection Assessment/Plan: -ct scan with contrast Code(s): R18.8 - OTHER ASCITES (4) CVA (cerebral vascular accident) Assessment/Plan: s/p trach and peg dvt ppx Code(s): I63.9 - CEREBRAL INFARCTION, UNSPECIFIED
[2018-12-03] MEDS ORDERED: PIPERACILLIN/TAZOB 4.5 GM 4.5 GM in DEXTROSE 5%-WATER 100 ML IVPB SCH (10:00)
--- NOTE | 2018-12-03 10:06 | PN ---
Progress Note (short form) - Note Progress Note: PULM/CCM Progress Note: -returns to ICU for tachycardia and fever -likely CRE growing in sputum -CTAP with possible collection in cecum -appears in 2:1 aflutter, HR consistent at 150, on cardizem gtt resident spoke with cardiology Vital Signs Temp 99.7 F H 12/03/18 03:35 Pulse 150 H 12/03/18 08:30 Resp 19 12/03/18 08:30 BP 103/57 L 12/03/18 07:30 Pulse Ox 99 12/03/18 08:30 Intake & Output 12/02/18 12/02/18 12/03/18 11:59 23:59 11:59 Intake Total 1550 1995 Output Total 700 1660 Balance 850 335 Weight 70.76 kg 70.76 kg 71.259 kg Intake: IV 1400 1175 LACTATED RINGERS SOLUTION 900 500 1,000 ml In 1,000 ml @ 100 mls/hr IV ASDIR GRECTHEN Rx#:[id number] LACTATED RINGERS SOLUTION 675 1,000 ml In 1,000 ml @ 75 mls/hr IV ASDIR GRETCHEN Rx #:[id number] Normal Saline - 500 ml @ 500 500 mls/hr IV ASDIR STA Rx#:[id number] IVPB 150 750 Tube Feeding 20 Tube Irrigant 50 Output: Urine 700 1660 External Catheter 10 Mckeon 700 1650 Other: Voiding Method Indwelling Catheter External Catheter Bowel Movement No Yes # Bowel Movements 1 Height 5 ft 3 in Body Mass Index (BMI) 27.6 Weight Measurement Method Built in [facility] Built in [facility] CBC, BMP 12/03/18 06:45 12/03/18 06:45 Microbiology 12/01/18 09:08 Sputum - Endotrachea Suction/Ventilator Gram Stain - Final 12/01/18 09:08 Sputum - Endotrachea Suction/Ventilator Sputum Culture - Preliminary Enterobacter Cloacae Presumptive Mrsa (Pbp2a Pos) Alpha Hemolytic Streptococcus Proteus Species 12/01/18 04:36 Blood - Peripheral Venous Blood Culture - Preliminary NO GROWTH OBTAINED AFTER 48 HOURS, INCUBATION TO CONTINUE FOR 3 DAYS. 12/01/18 04:36 Blood - Peripheral Venous Blood Culture - Preliminary NO GROWTH OBTAINED AFTER 48 HOURS, INCUBATION TO CONTINUE FOR 3 DAYS. 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 - has RSC TLC< may need PICC - IVF - rate control on cardizem gtt - monitor urine output, creatinine - continue volume assist control, can trial high PS for comfort - enteral feeds - DVT/GI prophylaxis - ICU monitoring Rachel ACNP 0598 35 min CCT
[2018-12-03] MEDS ORDERED: METOPROLOL TARTRATE 5 MG/5 ML VIAL IVPUSH ONE ×3 (11:10→21:34)
[2018-12-03] MEDS ORDERED: VANCOMYCIN 1,000 MG in DEXTROSE 5%-WATER - 250 ML IVPB SCH (11:30)
[2018-12-03] MEDS ORDERED: methylPREDNISolone NA SUCC 125 MG/2 ML VIAL ONE (12:05)
[2018-12-03] MEDS: VANCOMYCIN 1 GRAM (PRE-DOCKED) 1,000 MG/250 ML BAG IVPB SCH ×2 (12:29→23:44)
[2018-12-03] MEDS: MUPIROCIN 2% TOPICAL OINTMENT FOR DECOLONIZATION NS SCH ×2 (12:30→22:30)
[2018-12-03] MEDS: ERTAPENEM SODIUM 1 GM in SODIUM CHLORIDE 50 ML IVPB SCH (13:17)
--- NOTE | 2018-12-03 13:27 | CON.CARD ---
Consult Consult Specialty:: Cardiology Referred by:: Suzie Reason for Consultation:: aflutter with RVR, afib - History of Present Illness Chief Complaint: fever History of Present Illness: 73 y/o male BIBEMS to [facility] ER from [place] with fever of 106, tachycardia, and hypoxic to high 80s (per EMS crew). 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 Found with neutropenic fever, lactic acidosis and respiratory failure. Transferred from ICU to floor, noted with tachycardia, HR 150 ECG c/w atrial flutter with 2:1 block. Given IV amiodarone then IV diltiazem without effect. Transferred to ICU given metoprolol converted to nsr, then afib with mildly RVR. The patient is nonverbal and cannot give a history. 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 (left sided hemiparesis and expressive aphasia) Cardio/Vascular: Yes: HTN Pulmonary: Yes: Other (trached, chronically vent dependent) Gastrointestinal: Yes: Other (s/p PEG) Renal/: Yes: BPH - Past Surgical History Additional Surgical History: PEG tube placement, Craniotomy - Alcohol/Substance Use Hx Alcohol Use: Yes (STOPPED 10 YEASR AGO) - Smoking History Smoking history: Unknown if ever smoked Have you smoked in the past 12 months: Yes Aproximately how many cigarettes per day: 1 If you are a former smoker, when did you quit?: 8 MONTHS AGO - Social History Usual Living Arrangement: Group Home Home Medications - Allergies Allergies/Adverse Reactions: Allergies Allergy/AdvReac Type Severity Reaction Status Date / Time No Known Allergies Allergy Verified 12/01/18 04:48 Vital Signs: Vital Signs Temperature 99.7 F H 12/03/18 03:35 Pulse Rate 152 H 12/03/18 11:15 Respiratory Rate 20 12/03/18 11:25 Blood Pressure 111/70 12/03/18 11:15 O2 Sat by Pulse Oximetry (%) 99 12/03/18 08:30 Constitutional: Yes: Thin Eyes: Yes: Conjunctiva Clear, EOM Intact HENT: Yes: Normocephalic, Other (craniotomy) Respiratory: Yes: Mechanically Ventilated Gastrointestinal: Yes: Normal Bowel Sounds Cardiovascular: Yes: Tachycardia, Pulse Irregular JVD: No Carotid Bruit: No PMI: Non-Displaced Heart Sounds: Yes: S1, S2 Murmur: Yes: Systolic Murmur, Grade 2 Edema: No Peripheral Pulses WNL: Yes - Other Data Labs, Other Data: CBC, BMP 12/03/18 06:45 12/03/18 06:45 INR, PTT INR 1.15 (0.83-1.09) H 12/01/18 04:35 Imaging - Results Chest X-ray: Report Reviewed EKG: Report Reviewed Assessment/Plan 73 y/o male BIBEMS to [facility] ER from [place] with fever of 106, tachycardia, and hypoxic to high 80s (per EMS crew). 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 Found with neutropenic fever, lactic acidosis and respiratory failure. Transferred from ICU to floor, noted with tachycardia, HR 150 ECG c/w atrial flutter with 2:1 block. Given IV amiodarone then IV diltiazem without effect. Transferred to ICU given metoprolol converted to nsr, then afib with mildly RVR. --abx and sepsis mgt per ICU team --echo --tfts --stop IV dilt, start IV propranolol 2 mg q6h. --not an ac candidate at present, recent craniotomy.
[2018-12-03] MEDS ORDERED: METOPROLOL TARTRATE 5 MG/5 ML VIAL IVPUSH PRN (18:37)
[2018-12-03] MEDS ORDERED: KCL 10 MEQ IVPB 10 MEQ/100 ML INFUS.BAG IVPB SCH (21:30)
[2018-12-03] MEDS: CHLORHEXIDINE GLUCONATE 4% CLEANSER FOR DECOLONIZATION TP SCH (22:40)
[2018-12-03] MEDS: LABETALOL HCL IV SCH (22:54)
[2018-12-03] MEDS: SODIUM CHLORIDE IV SCH (22:54)
[2018-12-04 05:50] LABS: BASO % 0.1 % (0-2.0); HEMATOCRIT 25.6 % (35.4-49); HEMOGLOBIN 8.4 GM/dL (11.7-16.9); LYMPH % 13.2 % (8-40); MCH 28.5 pg (25.7-33.7); MCHC 32.9 g/dl (32.0-35.9); MEAN CELL VOLUME 86.8 fl (80-96); MEAN PLT VOLUME 9.4 fl (7.5-11.1); MONO % 10.1 % (3.8-10.2); NEUT % 76.6 % (42.8-82.8); PLATELET COUNT 146 K/MM3 (134-434); RBC 2.95 M/mm3 (4.00-5.60); WHITE BLOOD COUNT 4.4 K/mm3 (4.0-10.0)
[2018-12-04] MEDS: LACTATED RINGERS SOLUTION 1,000 ML/1,000 ML INFUS.BAG IV SCH (06:12)
[2018-12-04] MEDS: HEPARIN NA (PORCINE) 5,000 UNITS/ML 1ML VIAL SQ SCH ×3 (06:12→21:16)
[2018-12-04 06:23] LABS: CALCIUM 7.6 mg/dL (8.5-10.1); CREATININE 0.7 mg/dL (0.55-1.3); MAGNESIUM 1.7 mg/dL (1.8-2.4); PHOSPHOROUS 2.7 mg/dL (2.5-4.9); POTASSIUM 3.2 mmol/L (3.5-5.1)
[2018-12-04] MEDS: KCL 10 MEQ IVPB 10 MEQ/100 ML INFUS.BAG IVPB SCH ×2 (06:44→08:07)
[2018-12-04] MEDS ORDERED: MAGNESIUM SULF 50% (8.12 MEQ/2 ML-1 GM VIAL) IVPB ONE (06:45)
[2018-12-04] MEDS ORDERED: LABETALOL HCL 5 MG/1 ML (100MG/20 ML VIAL) ONE (09:19)
[2018-12-04] MEDS: ERTAPENEM SODIUM 1 GM in SODIUM CHLORIDE 50 ML IVPB SCH (09:27)
--- NOTE | 2018-12-04 10:06 | PN ---
Progress Note, Physician - Current Medication List Current Medications: Active Medications Acetaminophen (Ofirmev Injection -) 1,000 mg IVPB Q6H PRN PRN Reason: FEVER Last Admin: 12/03/18 14:41 Dose: 1,000 mg Chlorhexidine Gluconate (Hibiclens For Decolonization -) 1 applic TP HS GRETCHEN Last Admin: 12/03/18 22:40 Dose: 1 applic Heparin Sodium (Porcine) (Heparin -) 5,000 unit SQ TID GRETCHEN Last Admin: 12/04/18 06:12 Dose: 5,000 unit Ertapenem 1 gm/ Sodium (Chloride) 50 mls @ 100 mls/hr IVPB DAILY [facility] Last Admin: 12/04/18 09:27 Dose: 100 mls/hr Vancomycin HCl (Vancomycin (Pre-Docked)) 1,000 mg in 250 mls @ 166.667 mls/hr IVPB Q12H [facility]; Protocol Last Admin: 12/03/18 23:44 Dose: 166.667 mls/hr Labetalol HCl 200 mg/ Sodium (Chloride) 1,000 mls @ 600 mls/hr IV TITR GRETCHEN Last Admin: 12/03/18 22:54 Dose: 2 mg/min, 600 mls/hr Metoprolol Tartrate (Lopressor Injection -) 5 mg IVPUSH Q4H PRN PRN Reason: HYPERTENSION Last Admin: 12/03/18 18:45 Dose: 5 mg Mupirocin (Bactroban Ointment (For Decolonization) -) 1 applic NS BID [facility] Stop: 12/08/18 09:59 Last Admin: 12/03/18 22:30 Dose: 1 applic - Objective Vital Signs: Vital Signs Temperature 98.2 F 12/04/18 06:00 Pulse Rate 103 H 12/04/18 08:45 Respiratory Rate 17 12/04/18 08:45 Blood Pressure 91/56 L 12/04/18 08:00 O2 Sat by Pulse Oximetry (%) 99 12/04/18 08:45 Cardiovascular: Yes: S1, S2 Respiratory: Yes: Regular, CTA Bilaterally Gastrointestinal: Yes: Normal Bowel Sounds, Soft Labs: CBC, BMP 12/04/18 05:30 12/04/18 05:30 INR, PTT INR 1.15 (0.83-1.09) H 12/01/18 04:35 Problem List - Problems (1) Neutropenic sepsis Assessment/Plan: broad abx ID and pulm ivf trend lactic acid- now normal cultures pending ct -scan abdomen/pelvis - fluid filled pelvic structure near the cecum febrile heme on board Code(s): A41.9 - SEPSIS, UNSPECIFIED ORGANISM; D70.9 - NEUTROPENIA, UNSPECIFIED (2) History of UTI Assessment/Plan: --CRE --Await cultures -Isolation Code(s): Z87.440 - PERSONAL HISTORY OF URINARY (TRACT) INFECTIONS (3) Abdominal fluid collection Assessment/Plan: -ct scan with contrast noted surgical consult Code(s): R18.8 - OTHER ASCITES (4) CVA (cerebral vascular accident) Assessment/Plan: s/p trach and peg dvt ppx Code(s): I63.9 - CEREBRAL INFARCTION, UNSPECIFIED
[2018-12-04] MEDS: MUPIROCIN 2% TOPICAL OINTMENT FOR DECOLONIZATION NS SCH ×2 (10:10→21:16)
[2018-12-04] MEDS: VANCOMYCIN 1 GRAM (PRE-DOCKED) 1,000 MG/250 ML BAG IVPB SCH (11:04)
--- NOTE | 2018-12-04 12:33 | EKG ---
Test Reason : Blood Pressure : / mmHG Vent. Rate : 153 BPM Atrial Rate : 306 BPM P-R Int : 000 ms QRS Dur : 096 ms QT Int : 264 ms P-R-T Axes : 132 -03 000 degrees QTc Int : 421 ms ATRIAL FLUTTER WITH 2:1 A-V CONDUCTION INFERIOR INFARCT (CITED ON OR BEFORE 03-DEC-2018) ABNORMAL ECG WHEN COMPARED WITH ECG OF 03-DEC-2018 06:42, ST NO LONGER DEPRESSED IN INFERIOR LEADS Confirmed by MARK MENDOZA MD ([id number]) on 12/04/2018 12:32:54 PM Referred By: Kaiden LI Confirmed By:MARK MENDOZA MD
--- NOTE | 2018-12-04 12:35 | EKG ---
Test Reason : Blood Pressure : / mmHG Vent. Rate : 150 BPM Atrial Rate : 300 BPM P-R Int : 000 ms QRS Dur : 080 ms QT Int : 314 ms P-R-T Axes : 090 000 -21 degrees QTc Int : 496 ms ATRIAL FLUTTER WITH 2:1 A-V CONDUCTION Confirmed by MARK MENDOZA MD ([id number]) on 12/04/2018 12:34:42 PM Referred By: Confirmed By:MARK MENDZOA MD
--- NOTE | 2018-12-04 12:35 | EKG ---
Test Reason : Blood Pressure : / mmHG Vent. Rate : 187 BPM Atrial Rate : 192 BPM P-R Int : 000 ms QRS Dur : 072 ms QT Int : 276 ms P-R-T Axes : 000 039 140 degrees QTc Int : 487 ms POOR DATA QUALITY, INTERPRETATION MAY BE ADVERSELY AFFECTED UNDETERMINED RHYTHM NONSPECIFIC T WAVE ABNORMALITY ABNORMAL ECG Confirmed by MARK MENDOZA MD ([id number]) on 12/04/2018 12:34:59 PM Referred By: Confirmed By:MARK MENDOZA MD
--- NOTE | 2018-12-04 13:37 | PN ---
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 [facility] treated with vabomere for 10 days Vital Signs Period Temp Pulse Resp BP Sys/Howe Pulse Ox Last 24 Hr 98.2 F-99.8 F 101-153 16-29 91-128/56-85 97-99 cor-rrr lungs decreased bs at bases abd soft,nt ext no edema CBC, BMP 12/04/18 05:30 12/04/18 05:30 ct scan with left pelvic mass Microbiology 12/01/18 09:08 Sputum - Endotrachea Suction/Ventilator Gram Stain - Final 12/01/18 09:08 Sputum - Endotrachea Suction/Ventilator Sputum Culture - Final Enterobacter Cloacae Mr S Aureus Alpha Hemolytic Streptococcus Proteus Mirabilis 12/01/18 04:36 Blood - Peripheral Venous Blood Culture - Preliminary NO GROWTH OBTAINED AFTER 72 HOURS, INCUBATION TO CONTINUE FOR 2 DAYS. 12/01/18 04:36 Blood - Peripheral Venous Blood Culture - Preliminary NO GROWTH OBTAINED AFTER 72 HOURS, INCUBATION TO CONTINUE FOR 2 DAYS. 12/01/18 18:44 Urine - Urine Mckeon Legionella Antigen - Final 12/01/18 18:44 Urine - Urine Mckeon Streptococcus pneumoniae Antigen (M - Final 12/01/18 04:45 Urine - Urine - Catheterized Urine Culture - Final NO GROWTH OBTAINED Current Medications Acetaminophen (Ofirmev Injection -) 1,000 mg IVPB Q6H PRN PRN Reason: FEVER Last Admin: 12/03/18 14:41 Dose: 1,000 mg Chlorhexidine Gluconate (Hibiclens For Decolonization -) 1 applic TP HS GRETCHEN Last Admin: 12/03/18 22:40 Dose: 1 applic Heparin Sodium (Porcine) (Heparin -) 5,000 unit SQ TID GRETCHEN Last Admin: 12/04/18 06:12 Dose: 5,000 unit Ertapenem 1 gm/ Sodium (Chloride) 50 mls @ 100 mls/hr IVPB DAILY GRETCHEN Last Admin: 12/04/18 09:27 Dose: 100 mls/hr Vancomycin HCl (Vancomycin (Pre-Docked)) 1,000 mg in 250 mls @ 166.667 mls/hr IVPB Q12H GRETCHEN; Protocol Last Admin: 12/04/18 11:04 Dose: 166.667 mls/hr Labetalol HCl 200 mg/ Sodium (Chloride) 1,000 mls @ 600 mls/hr IV TITR GRETCHEN Last Admin: 12/03/18 22:54 Dose: 2 mg/min, 600 mls/hr Metoprolol Tartrate (Lopressor Injection -) 5 mg IVPUSH Q4H PRN PRN Reason: HYPERTENSION Last Admin: 12/03/18 18:45 Dose: 5 mg Mupirocin (Bactroban Ointment (For Decolonization) -) 1 applic NS BID GRETCHEN Stop: 12/08/18 09:59 Last Admin: 12/04/18 10:10 Dose: 1 applic a/p fevers-improved clinically improved-neutropenia resolved ?aspiration, ?intraabdominal abscess on ct scan- t/c IR guided biopsy , d/w oracle fusion consultant, for surgery evaluation s/p hemorrhagic CVA with craniotomy d/w [employer] fusion consultant, PMD- 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
--- NOTE | 2018-12-04 14:36 | PN ---
Progress Note, Physician Chief Complaint: appears more comfortable tele sinus tach vs atach 2:1 History of Present Illness: 73 y/o male BIBEMS to [facility] ER from [facility] with fever of 106, tachycardia, and hypoxic to high 80s (per EMS crew). The pt is s/p trach and PEG dependent s/p Right MCA CVA one month ago complicated by ICH s/p craniotomy at [facility]. Found with neutropenic fever, lactic acidosis and respiratory failure. Transferred from ICU to floor, noted with tachycardia, HR 150 ECG c/w atrial flutter with 2:1 block. Given IV amiodarone then IV diltiazem without effect. Transferred to ICU given metoprolol converted to nsr, then afib with mildly RVR. The patient is nonverbal and cannot give a history. CT scan shows a possible pelvic abcess. - Current Medication List Current Medications: Active Medications Acetaminophen (Ofirmev Injection -) 1,000 mg IVPB Q6H PRN PRN Reason: FEVER Last Admin: 12/03/18 14:41 Dose: 1,000 mg Chlorhexidine Gluconate (Hibiclens For Decolonization -) 1 applic TP HS GRETCHEN Last Admin: 12/03/18 22:40 Dose: 1 applic Heparin Sodium (Porcine) (Heparin -) 5,000 unit SQ TID GRETCHEN Last Admin: 12/04/18 14:17 Dose: 5,000 unit Ertapenem 1 gm/ Sodium (Chloride) 50 mls @ 100 mls/hr IVPB DAILY GRETCH[facility] Last Admin: 12/04/18 09:27 Dose: 100 mls/hr Vancomycin HCl (Vancomycin (Pre-Docked)) 1,000 mg in 250 mls @ 166.667 mls/hr IVPB Q12H GRETCH[facility]; Protocol Last Admin: 12/04/18 11:04 Dose: 166.667 mls/hr Labetalol HCl 200 mg/ Sodium (Chloride) 1,000 mls @ 600 mls/hr IV TITR GRETCHEN Last Admin: 12/03/18 22:54 Dose: 2 mg/min, 600 mls/hr Metoprolol Tartrate (Lopressor Injection -) 5 mg IVPUSH Q4H PRN PRN Reason: HYPERTENSION Last Admin: 12/03/18 18:45 Dose: 5 mg Mupirocin (Bactroban Ointment (For Decolonization) -) 1 applic NS BID GRETCHEN Stop: 12/08/18 09:59 Last Admin: 12/04/18 10:10 Dose: 1 applic - Objective Vital Signs: Vital Signs Temperature 98.2 F 12/04/18 06:00 Pulse Rate 103 H 12/04/18 08:45 Respiratory Rate 18 12/04/18 14:01 Blood Pressure 91/56 L 12/04/18 08:00 O2 Sat by Pulse Oximetry (%) 99 12/04/18 09:00 Constitutional: Yes: No Distress Eyes: Yes: EOM Intact HENT: Yes: Normocephalic Neck: Yes: Trachea Midline Cardiovascular: Yes: Regular Rate and Rhythm, Tachycardia Respiratory: Yes: Mechanically Ventilated Gastrointestinal: Yes: Normal Bowel Sounds, Soft Extremities: Yes: WNL Edema: No Peripheral Pulses WNL: Yes Labs: CBC, BMP 12/04/18 05:30 12/04/18 05:30 INR, PTT INR 1.15 (0.83-1.09) H 12/01/18 04:35 Assessment/Plan 73 y/o male BIBEMS to [facility] ER from [facility] with fever of 106, tachycardia, and hypoxic to high 80s (per EMS crew). The pt is s/p trach and PEG dependent s/p Right MCA CVA one month ago complicated by ICH s/p craniotomy at [facility]. Found with neutropenic fever, lactic acidosis and respiratory failure. Transferred from ICU to floor, noted with tachycardia, HR 150 ECG c/w atrial flutter with 2:1 block. Given IV amiodarone then IV diltiazem without effect. Transferred to ICU given metoprolol converted to nsr, then afib with mildly RVR. --abx and sepsis mgt per ICU team --echo --tfts --stop IV dilt, start IV propranolol 2 mg q6h. --not an ac candidate at present, recent craniotomy. -He has a possible pelvic abcess. There is no cardiac contraindication to drainage as the benefits would outweigh the risks.
--- NOTE | 2018-12-04 16:02 | PN ---
Progress Note (short form) - Note Progress Note: PULM/CCM Progress Note: -returns to ICU for tachycardia and fever -likely CRE growing in sputum -CTAP with possible collection in cecum -appears in 2:1 aflutter, HR consistent at 150, on cardizem gtt resident spoke with cardiology Vital Signs Temp 99.7 F H 12/03/18 03:35 Pulse 150 H 12/03/18 08:30 Resp 19 12/03/18 08:30 BP 103/57 L 12/03/18 07:30 Pulse Ox 99 12/03/18 08:30 Intake & Output 12/02/18 12/02/18 12/03/18 11:59 23:59 11:59 Intake Total 1550 1995 Output Total 700 1660 Balance 850 335 Weight 70.76 kg 70.76 kg 71.259 kg Intake: IV 1400 1175 LACTATED RINGERS SOLUTION 900 500 1,000 ml In 1,000 ml @ 100 mls/hr IV ASDIR GRETCHEN Rx#:[id number] LACTATED RINGERS SOLUTION 675 1,000 ml In 1,000 ml @ 75 mls/hr IV ASDIR GRETCHEN Rx #:[id number] Normal Saline - 500 ml @ 500 500 mls/hr IV ASDIR STA Rx#:[id number] IVPB 150 750 Tube Feeding 20 Tube Irrigant 50 Output: Urine 700 1660 External Catheter 10 Mckeon 700 1650 Other: Voiding Method Indwelling Catheter External Catheter Bowel Movement No Yes # Bowel Movements 1 Height 5 ft 3 in Body Mass Index (BMI) 27.6 Weight Measurement Method Built in [facility] Built in [facility] CBC, BMP 12/03/18 06:45 12/03/18 06:45 Microbiology 12/01/18 09:08 Sputum - Endotrachea Suction/Ventilator Gram Stain - Final 12/01/18 09:08 Sputum - Endotrachea Suction/Ventilator Sputum Culture - Preliminary Enterobacter Cloacae Presumptive Mrsa (Pbp2a Pos) Alpha Hemolytic Streptococcus Proteus Species 12/01/18 04:36 Blood - Peripheral Venous Blood Culture - Preliminary NO GROWTH OBTAINED AFTER 48 HOURS, INCUBATION TO CONTINUE FOR 3 DAYS. 12/01/18 04:36 Blood - Peripheral Venous Blood Culture - Preliminary NO GROWTH OBTAINED AFTER 48 HOURS, INCUBATION TO CONTINUE FOR 3 DAYS. 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 To be seen by general surgery, case discussed with Dr Thapa. - has RSC TLC< may need PICC - rate control on labetolol gtt, will transition to PO as able - monitor urine output, creatinine - continue volume assist control, can trial high PS for comfort - enteral feeds - DVT/GI prophylaxis - ICU monitoring Rachel ACNP 4476 35 min CCT
[2018-12-04] MEDS ORDERED: FUROSEMIDE 40 MG/4 ML INJECTABLE VIAL IVPUSH ONE (16:03)
[2018-12-04] MEDS: LABETALOL HCL IV SCH (20:00)
[2018-12-04] MEDS: SODIUM CHLORIDE IV SCH (20:00)
[2018-12-04] MEDS: CHLORHEXIDINE GLUCONATE 4% CLEANSER FOR DECOLONIZATION TP SCH (21:17)
[2018-12-04] MEDS: LABETALOL HCL INJECTION 1,000 MG in SODIUM CHLORIDE 800 ML IV SCH (23:00)
[2018-12-05] MEDS: LABETALOL HCL INJECTION 1,000 MG in SODIUM CHLORIDE 800 ML IV SCH (00:06)
[2018-12-05] MEDS: VANCOMYCIN 1 GRAM (PRE-DOCKED) 1,000 MG/250 ML BAG IVPB SCH ×3 (00:09→23:55)
[2018-12-05] MEDS: HEPARIN NA (PORCINE) 5,000 UNITS/ML 1ML VIAL SQ SCH (05:59)
[2018-12-05 06:55] LABS: BASO % 0.2 % (0-2.0); EOS % 0.8 % (0-4.5); HEMATOCRIT 27.2 % (35.4-49); HEMOGLOBIN 8.6 GM/dL (11.7-16.9); LYMPH % 22.5 % (8-40); MCH 27.9 pg (25.7-33.7); MCHC 31.7 g/dl (32.0-35.9); MEAN CELL VOLUME 87.9 fl (80-96); MONO % 12.4 % (3.8-10.2); NEUT % 64.1 % (42.8-82.8); PLATELET COUNT 178 K/MM3 (134-434); WHITE BLOOD COUNT 3.9 K/mm3 (4.0-10.0)
[2018-12-05 07:32] LABS: ALBUMIN 1.6 g/dl (3.4-5.0); BILIRUBIN,TOTAL 0.5 mg/dL (0.2-1); CALCIUM 7.8 mg/dL (8.5-10.1); CREATININE 0.5 mg/dL (0.55-1.3); MAGNESIUM 1.8 mg/dL (1.8-2.4); POTASSIUM 3.1 mmol/L (3.5-5.1); TOT PROT 4.7 g/dl (6.4-8.2)
[2018-12-05] MEDS ORDERED: POTASSIUM CHLORIDE TABS 20 MEQ TABLET.ER (FP) PO ONE (08:07)
--- NOTE | 2018-12-05 08:18 | PN ---
Physical Exam: SUBJECTIVE: Patient seen and examined at bedside. No acute events overnight. Rhythm remains in atrial flutter. OBJECTIVE: Vital Signs Period Temp Pulse Resp BP Sys/Howe Pulse Ox Last 24 Hr 98 F-98.7 F 103-123 16-26 97-122/60-80 95-99 GENERAL: The patient is awake, alert, aphasia at baseline. Follows commands. HEAD: s/p R craniotomy, helmet off. EYES: PERRL, extraocular movements intact, sclera anicteric, conjunctiva clear. No ptosis. NECK: Tracheostomy LUNGS: Decreased sounds at bases, no wheezes, no crackles, vented. HEART: Tachycardia, S1, S2 without murmur, rub or gallop. ABDOMEN: PEG tube. Soft, nontender, nondistended, normoactive bowel sounds, no guarding, no rebound, no hepatosplenomegaly, no masses. EXTREMITIES: 2+ pulses, warm, well-perfused, 1+ edema in L foot and L hand. NEUROLOGICAL: L sided hemiparesis, aphasic at baseline. SKIN: Warm, dry, normal turgor, no rashes or lesions noted Laboratory Results - last 24 hr 12/04/18 12/05/18 12/05/18 10:03 06:30 06:30 WBC 3.9 L RBC 3.10 L Hgb 8.6 L Hct 27.2 L MCV 87.9 MCH 27.9 MCHC 31.7 L RDW 19.0 H Plt Count 178 D MPV 9.0 Absolute Neuts (auto) 2.5 Neutrophils % 64.1 Lymphocytes % 22.5 D Monocytes % 12.4 H Eosinophils % 0.8 D Basophils % 0.2 Nucleated RBC % 0 Sodium 145 Potassium 3.1 L Chloride 115 H Carbon Dioxide 21 Anion Gap 10 BUN 7 Creatinine 0.5 L Est GFR (CKD-EPI)AfAm 125.48 Est GFR (CKD-EPI)NonAf 108.26 Random Glucose 76 Calcium 7.8 L Phosphorus 3.0 Magnesium 1.8 Total Bilirubin 0.5 AST 23 ALT 16 Alkaline Phosphatase 139 H Total Protein 4.7 L Albumin 1.6 L Vancomycin Pre-Dose 17.0 L Active Medications Generic Name Dose Route Start Last Admin Trade Name Freq PRN Reason Stop Dose Admin Acetaminophen 1,000 mg 12/03/18 05:26 12/03/18 14:41 Ofirmev Injection - IVPB 1,000 mg Q6H PRN Administration FEVER Chlorhexidine Gluconate 1 applic 12/03/18 22:00 12/04/18 21:17 Hibiclens For Decolonization - TP 1 applic HS GRETCHEN Administration Heparin Sodium (Porcine) 5,000 unit 12/03/18 06:00 12/05/18 05:59 Heparin - SQ 5,000 unit TID GRETCHEN Administration Ertapenem 1 gm/ Sodium 50 mls @ 100 mls/hr 12/03/18 10:00 12/04/18 09:27 Chloride IVPB 100 mls/hr DAILY GRETCHEN Administration Vancomycin HCl 1,000 mg in 250 mls @ 166.667 mls/hr 12/03/18 11:30 12/05/18 00:09 Vancomycin (Pre-Docked) IVPB 166.667 mls/hr Q12H GRETCHEN Administration Protocol Labetalol HCl 1,000 mg/ Sodium 1,000 mls @ 120 mls/hr 12/04/18 21:45 00:06 Chloride IV Not Given TITR GRETCHEN 2 MG/MIN Potassium Chloride 10 meq in 100 mls @ 100 mls/hr 12/05/18 08:15 Potassium Chloride 10 Meq Premix Ivpb - IVPB 12/05/18 10:14 Q60M GRETCHEN Metoprolol Tartrate 5 mg 12/03/18 18:37 12/03/18 18:45 Lopressor Injection - IVPUSH 5 mg Q4H PRN Administration HYPERTENSION Mupirocin 1 applic 12/03/18 10:00 12/04/18 21:16 Bactroban Ointment (For Decolonization) - NS 12/08/18 09:59 1 applic BID GRETCHEN Administration ASSESSMENT/PLAN: The patient is a 73 yo m w/ PMH right sided hemorrhagic stroke w/residual Lt hemiparesis and expressive aphasia who was BIBEMS from [facility] after he was found to have a rectal Temp of 106. NEURO -History of hemorrhagic stroke with residual L hemiparesis -Expressive aphasia at baseline PULM -Sepsis 2/2 PNA vs aspiration pneumonitis -S/p trach and vented -CTAP: PNA v. Atalectasis v. L inguinal/pelvic abscess -Sputum cultures: MRSA, enterobacter Cloacae, p. Mirabilis, alpha hemolytic strep -Vanc and ertapenem per ID day 3 -Congestive changes seen on CXR, will give Lasix 40mg (pressures have been maintaining) -SpO2 >90 -ID consulted CARDIO/VASC -2:1 Aflutter with HR to 150s -Labatelol gtt, metoprolol ivpush prn -Cardiology consulting, appreciating recommendations -Start amiodarone drip -R subclavian line -CVP monitoring -Maintain MAP >60-65 -Echo: afib, EF 45-50% HEME/ONC -Neutropenic on admission, borderline today. -Will trend GI -S/p PEG -CTAP: fluid filled mass with calcifications abutting cecum likely fluid filled cecum -Mass in L lower pelvis/groin area: hematoma v. abscess v. neoplasm -Abscess is new finding. Last CTAP at [facility] 10/2018 -IR consulted, will drain tomorrow. Will hold heparin for tomorrow ID -Sepsis 2/2 PNA v. Aspiration v. Abscess? -ID consulting -IR for drain -Vanc, ertapenem day 3 -Tylenol PRN for fevers ENDO -Hypokalmia today -Will replete -Trend FEN -Monitor lytes -Enteral feeds PROPHYLAXIS -Heparin sc Dispo Will continue to monitor in ICU Visit type - Emergency Visit Emergency Visit: Yes ED Registration Date: 12/01/18 Care time: The patient presented to the Emergency Department on the above date and was hospitalized for further evaluation of their emergent condition. - New Patient This patient is new to me today: No - Critical Care Critical Care patient: Yes Total Critical Care Time (in minutes): 40 Critical Care Statement: The care of this patient involved high complexity decision making to prevent further life threatening deterioration of the patient 's condition and/or to evaluate & treat vital organ system(s) failure or risk of failure.
--- NOTE | 2018-12-05 09:18 | PN ---
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 12/01/18 04:36 Blood - Peripheral Venous Blood Culture - Preliminary NO GROWTH OBTAINED AFTER 96 HOURS, INCUBATION TO CONTINUE FOR 1 DAYS. 12/01/18 09:08 Sputum - Endotrachea Suction/Ventilator Gram Stain - Final 12/01/18 09:08 Sputum - Endotrachea Suction/Ventilator Sputum Culture - Final Enterobacter Cloacae Mr S Aureus Alpha Hemolytic Streptococcus Proteus Mirabilis 12/01/18 18:44 Urine - Urine Mckeon Legionella Antigen - Final 12/01/18 18:44 Urine - Urine Mckeon Streptococcus pneumoniae Antigen (M - Final 12/01/18 04:45 Urine - Urine - Catheterized Urine Culture - Final NO GROWTH OBTAINED vanco trough 17 cxray bilateral infiltrates worsening a/p fevers-improved clinically improved-neutropenia resolved ?aspiration pneumonia , ?intraabdominal abscess on ct scan- t/c IR guided biopsy /surgical evaluation s/p hemorrhagic CVA with craniotomy vancomycin/ertapenem day #3 repeat vanco trough in am
[2018-12-05] MEDS: KCL 10 MEQ IVPB 10 MEQ/100 ML INFUS.BAG IVPB SCH ×5 (09:27→23:55)
[2018-12-05] MEDS: MUPIROCIN 2% TOPICAL OINTMENT FOR DECOLONIZATION NS SCH ×2 (10:01→22:08)
[2018-12-05] MEDS ORDERED: PT OWN MED DRAWER 7, Y5N ONE ×2 (10:09→21:58)
--- NOTE | 2018-12-05 11:01 | PN ---
Progress Note, Physician Chief Complaint: Telem AFlutter Vs AT at 115 BPM Vented. History of Present Illness: 73 y/o male BIBEMS to [facility] from [facility] with fever of 106, tachycardia, and hypoxic to high 80s (per EMS crew). 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 Found with neutropenic fever, lactic acidosis and respiratory failure. Transferred from ICU to floor, noted with tachycardia, HR 150 ECG c/w atrial flutter with 2:1 block. Given IV amiodarone then IV diltiazem without effect. Transferred to ICU given metoprolol converted to nsr, then afib with mildly RVR. The patient is nonverbal and cannot give a history. CT scan shows a possible pelvic abcess. He is placed on IV labetalol and Metoprolol. - Current Medication List Current Medications: Active Medications Acetaminophen (Ofirmev Injection -) 1,000 mg IVPB Q6H PRN PRN Reason: FEVER Last Admin: 12/03/18 14:41 Dose: 1,000 mg Chlorhexidine Gluconate (Hibiclens For Decolonization -) 1 applic TP HS GRETCHEN Last Admin: 12/04/18 21:17 Dose: 1 applic Heparin Sodium (Porcine) (Heparin -) 5,000 unit SQ TID GRETCHEN Last Admin: 12/05/18 05:59 Dose: 5,000 unit Ertapenem 1 gm/ Sodium (Chloride) 50 mls @ 100 mls/hr IVPB DAILY GRETCHEN Last Admin: 12/04/18 09:27 Dose: 100 mls/hr Vancomycin HCl (Vancomycin (Pre-Docked)) 1,000 mg in 250 mls @ 166.667 mls/hr IVPB Q12H GRETCHEN; Protocol Last Admin: 12/05/18 00:09 Dose: 166.667 mls/hr Labetalol HCl 1,000 mg/ Sodium (Chloride) 1,000 mls @ 120 mls/hr IV TITR GRETCHEN Last Admin: 12/05/18 00:06 Dose: Not Given Metoprolol Tartrate (Lopressor Injection -) 5 mg IVPUSH Q4H PRN PRN Reason: HYPERTENSION Last Admin: 12/03/18 18:45 Dose: 5 mg Mupirocin (Bactroban Ointment (For Decolonization) -) 1 applic NS BID GRETCHEN Stop: 12/08/18 09:59 Last Admin: 12/05/18 10:01 Dose: 1 applic - Objective Vital Signs: Vital Signs Temperature 98.3 F 12/05/18 10:00 Pulse Rate 113 H 12/05/18 10:00 Respiratory Rate 26 H 12/05/18 10:00 Blood Pressure 122/85 12/05/18 10:00 O2 Sat by Pulse Oximetry (%) 97 12/05/18 08:37 Constitutional: Yes: Well Nourished, No Distress Eyes: Yes: Conjunctiva Clear HENT: Yes: Normocephalic Neck: Yes: Supple, Trachea Midline Cardiovascular: Yes: Tachycardia, S1, S2 Respiratory: Yes: Regular, CTA Bilaterally Gastrointestinal: Yes: Normal Bowel Sounds, Soft Edema: No Labs: CBC, BMP 12/05/18 06:30 12/05/18 06:30 INR, PTT INR 1.15 (0.83-1.09) H 12/01/18 04:35 Problem List - Problems (1) Atrial flutter Code(s): I48.92 - UNSPECIFIED ATRIAL FLUTTER Assessment/Plan 73 y/o male BIBEMS to [facility] from [facility] with fever of 106, tachycardia, and hypoxic to high 80s (per EMS crew). 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 Found with neutropenic fever, lactic acidosis and respiratory failure. Transferred from ICU to floor, noted with tachycardia, HR 150 ECG c/w atrial flutter with 2:1 block. Given IV amiodarone then IV diltiazem without effect. Transferred to ICU. He continues to remain in an atrial arrhythmia though HR is slower. --Continue Labetalol Drip. --Correct hypokalemia >4 and Mg>2 --Start Amiodarone 1mg/min [id number] then 0.5mg/min --abx and sepsis mgt per ICU team --echo --tfts --not an ac candidate at present, recent craniotomy. -He has a possible pelvic abcess. There is no cardiac contraindication to drainage as the benefits would outweigh the risks.
--- NOTE | 2018-12-05 11:36 | ECHO ---
Name: KARAN LIND Exam:Adult Echocardiogram Study Date: 12/05/2018 08:46 AM Age: 73 yrs Reason For Study: SVT Height: 63 in Weight: 147 lb BSA: 1.7 m2 BP: 125/81 mmHg MMode/2D Measurements & Calculations IVSd: 0.87 cm Ao root diam: 2.8 cm LVIDd: 4.6 cm LA dimension: 3.5 cm LVIDs: 3.5 cm LVPWd: 1.1 cm EDV(Teich): 97.8 ml LVOT diam: 2.0 cm ESV(Teich): 52.5 ml Doppler Measurements & Calculations Ao V2 max: 85.1 cm/sec LV V1 max P.6 mmHg Ao max P.9 mmHg LV V1 max: 64.2 cm/sec WING(V,D): 2.5 cm2 Procedure The study was technically limited with all images being suboptimal in quality. Left Ventricle The left ventricle is normal in size. Left ventricular systolic function is mildly reduced. Ejection Fraction = 45-50%. Right Ventricle The right ventricle is normal size. The right ventricular systolic function is normal. Atria The left atrium is mildly dilated. The right atrium is mildly dilated. Mitral Valve The mitral valve is grossly normal. There is trace mitral regurgitation. Tricuspid Valve The tricuspid valve is not well visualized, but is grossly normal. There is trace tricuspid regurgita tion. There was insufficient TR detected to calculate RV systolic pressure. Aortic Valve The aortic valve opens well. Trace aortic regurgitation. Pulmonic Valve The pulmonic valve is not well visualized. Great Vessels The aortic root is normal size. Pericardium/Pleura There is no pericardial effusion. Interpretation Summary Patient is in rapid afib during study. There is no comparison study available. The left ventricle is normal in size. The right ventricle is normal size. The right ventricular systolic function is normal. Trace aortic regurgitation. There is trace mitral regurgitation. There is trace tricuspid regurgitation. The left atrium is mildly dilated. The right atrium is mildly dilated. Left ventricular systolic function is mildly reduced. Ejection Fraction = 45-50%. Juaquin Jarrett MD 12/05/2018 11:36 AM
[2018-12-05] MEDS: ERTAPENEM SODIUM 1 GM in SODIUM CHLORIDE 50 ML IVPB SCH (11:38)
[2018-12-05 11:39] LABS: ANISOCYTOSIS 1+; MACROCYTOSIS 1+; OVALOCYTE 1+; PLATELET ESTIMATE NORMAL
[2018-12-05] MEDS ORDERED: FUROSEMIDE 40 MG/4 ML INJECTABLE VIAL IVPUSH ONE (11:43)
--- NOTE | 2018-12-05 11:47 | PN ---
Teaching Attending Note Name of Resident: Susan Cam ATTENDING PHYSICIAN STATEMENT I saw and evaluated the patient. I reviewed the resident's note and discussed the case with the resident. I agree with the resident's findings and plan as documented. SUBJECTIVE: Patient seen and examined in the ICU. Vented on AC Mode. Arousable and intermittently able to follow some simple commands. Moves right side spontaneously. Labetalol for atrial flutter control. OBJECTIVE: Intake & Output 12/02/18 12/03/18 12/04/18 12/05/18 23:59 23:59 23:59 23:59 Intake Total 3545 1825 3175 Output Total 2360 1450 1400 Balance 3613 490 1013 Weight 156 lb 157 lb 1.6 oz 159 lb 3.2 oz 165 lb 8 oz Last Vital Signs Temp Pulse Resp BP Pulse Ox 98.3 F 113 H 18 122/85 97 12/05/18 10:00 12/05/18 10:00 12/05/18 11:31 12/05/18 10:00 12/05/18 08:37 Active Medications Acetaminophen (Ofirmev Injection -) 1,000 mg IVPB Q6H PRN PRN Reason: FEVER Last Admin: 12/03/18 14:41 Dose: 1,000 mg Chlorhexidine Gluconate (Hibiclens For Decolonization -) 1 applic TP HS GRETCHEN Last Admin: 12/04/18 21:17 Dose: 1 applic Furosemide (Lasix Injection -) 40 mg IVPUSH ONCE ONE Stop: 12/05/18 11:44 Heparin Sodium (Porcine) (Heparin -) 5,000 unit SQ TID GRETCHEN Last Admin: 12/05/18 05:59 Dose: 5,000 unit Ertapenem 1 gm/ Sodium (Chloride) 50 mls @ 100 mls/hr IVPB DAILY GRETCHEN Last Admin: 12/04/18 09:27 Dose: 100 mls/hr Vancomycin HCl (Vancomycin (Pre-Docked)) 1,000 mg in 250 mls @ 166.667 mls/hr IVPB Q12H GRETCHEN; Protocol Last Admin: 12/05/18 00:09 Dose: 166.667 mls/hr Labetalol HCl 1,000 mg/ Sodium (Chloride) 1,000 mls @ 120 mls/hr IV TITR GRETCHEN Last Admin: 12/05/18 00:06 Dose: Not Given Metoprolol Tartrate (Lopressor Injection -) 5 mg IVPUSH Q4H PRN PRN Reason: HYPERTENSION Last Admin: 12/03/18 18:45 Dose: 5 mg Mupirocin (Bactroban Ointment (For Decolonization) -) 1 applic NS BID GRETCHEN Stop: 12/08/18 09:59 Last Admin: 12/05/18 10:01 Dose: 1 applic Gen: vented, awake and interactive Heart: S1S2 Lung: Vented, scattered rhonchi Abd: soft, nontender, (+) BS Ext: no edema ASSOCIATE PRINCIPAL: Left hemiparesis Laboratory Results - last 24 hr 12/05/18 12/05/18 06:30 06:30 WBC 3.9 L RBC 3.10 L Hgb 8.6 L Hct 27.2 L MCV 87.9 MCH 27.9 MCHC 31.7 L RDW 19.0 H Plt Count 178 D MPV 9.0 Absolute Neuts (auto) 2.5 Neutrophils % 64.1 Lymphocytes % 22.5 D Monocytes % 12.4 H Eosinophils % 0.8 D Basophils % 0.2 Nucleated RBC % 0 Sodium 145 Potassium 3.1 L Chloride 115 H Carbon Dioxide 21 Anion Gap 10 BUN 7 Creatinine 0.5 L Est GFR (CKD-EPI)AfAm 125.48 Est GFR (CKD-EPI)NonAf 108.26 Random Glucose 76 Calcium 7.8 L Phosphorus 3.0 Magnesium 1.8 Total Bilirubin 0.5 AST 23 ALT 16 Alkaline Phosphatase 139 H Total Protein 4.7 L Albumin 1.6 L ASSESSMENT AND PLAN: Rapid Atrial Flutter requiring IV Labetalol for rate control Neutropenic Severe Sepsis Pneumonia Lactic Acidosis Chronic Respiratory Failure Recent Hemorrhagic Stroke - To D/W Cardiology rate control regimen - ABX per ID - Diuresis - monitor urine output, creatinine - continue volume assist control - enteral feeds - DVT/GI prophylaxis - Requires ICU monitoring for IV Cardiac drip titration Dr Mahajan Critical care time spent in reviewing chart, evaluating patient and formulating plan - 36 minutes.
[2018-12-05] MEDS ORDERED: MAGNESIUM SULF 50% (8.12 MEQ/2 ML-1 GM VIAL) IVPB ONE (12:02)
[2018-12-05] MEDS ORDERED: AMIODARONE IN DEXTROSE,ISO-OSM 360 MG/200 ML BAG IVPB ONE (13:41)
[2018-12-05] MEDS ORDERED: AMIODARONE IN DEXTROSE,ISO-OSM 150 MG/100 ML BAG IVPB ONE (13:42)
--- NOTE | 2018-12-05 13:43 | PN ---
Progress Note, Physician Chief Complaint: patient in bed sleeping on iv labetolol for rate control - Current Medication List Current Medications: Active Medications Acetaminophen (Ofirmev Injection -) 1,000 mg IVPB Q6H PRN PRN Reason: FEVER Last Admin: 12/03/18 14:41 Dose: 1,000 mg Chlorhexidine Gluconate (Hibiclens For Decolonization -) 1 applic TP HS [facility] Last Admin: 12/04/18 21:17 Dose: 1 applic Heparin Sodium (Porcine) (Heparin -) 5,000 unit SQ TID GRETCHEN Last Admin: 12/05/18 05:59 Dose: 5,000 unit Ertapenem 1 gm/ Sodium (Chloride) 50 mls @ 100 mls/hr IVPB DAILY [facility] Last Admin: 12/05/18 11:38 Dose: 100 mls/hr Vancomycin HCl (Vancomycin (Pre-Docked)) 1,000 mg in 250 mls @ 166.667 mls/hr IVPB Q12H [facility]; Protocol Last Admin: 12/05/18 11:48 Dose: 166.667 mls/hr Labetalol HCl 1,000 mg/ Sodium (Chloride) 1,000 mls @ 120 mls/hr IV TITR GRETCHEN Last Admin: 12/05/18 00:06 Dose: Not Given Metoprolol Tartrate (Lopressor Injection -) 5 mg IVPUSH Q4H PRN PRN Reason: HYPERTENSION Last Admin: 12/03/18 18:45 Dose: 5 mg Mupirocin (Bactroban Ointment (For Decolonization) -) 1 applic NS BID [facility] Stop: 12/08/18 09:59 Last Admin: 12/05/18 10:01 Dose: 1 applic - Objective Vital Signs: Vital Signs Temperature 98.3 F 12/05/18 10:00 Pulse Rate 113 H 12/05/18 10:00 Respiratory Rate 18 12/05/18 11:31 Blood Pressure 122/85 12/05/18 10:00 O2 Sat by Pulse Oximetry (%) 97 12/05/18 08:37 Constitutional: Yes: Calm, Thin Cardiovascular: Yes: Regular Rate and Rhythm, Tachycardia, S1, S2 Respiratory: Yes: Diminished (on left side) Gastrointestinal: Yes: Normal Bowel Sounds, Soft Edema: No Neurological: Yes: Other (left sided weakness moves right side spontaneously) Labs: CBC, BMP 12/05/18 06:30 12/05/18 06:30 INR, PTT INR 1.15 (0.83-1.09) H 12/01/18 04:35 Problem List - Problems (1) Lactic acid acidosis Assessment/Plan: broad abx ID and pulm on board ivf trend lactic acid- now normal cultures pending ct -scan abdomen/pelvis - fluid filled pelvic structure near the cecum- IR consult for drainage afebrile, not neutropenic monitor BP Code(s): E87.2 - ACIDOSIS (2) Neutropenic sepsis Assessment/Plan: absolute neutrophil count noted- wbc count improving iv abx ertrapenem and vancomycin IR for biopsy / drainiage of pelvic abcess heme on board palliative team consulted vent [facility] Microbiology 12/01/18 09:08 Sputum - Endotrachea Suction/Ventilator Sputum Culture - Preliminary Lactose Fermenting Neg Bacilli Beta Hemolytic Strep Pending Organism Code(s): A41.9 - SEPSIS, UNSPECIFIED ORGANISM; D70.9 - NEUTROPENIA, UNSPECIFIED (3) Status post CVA Assessment/Plan: s/p trach and peg dvt ppx Code(s): Z86.73 - PRSNL HX OF TIA (TIA), AND CEREB INFRC W/O RESID DEFICITS (4) Atrial flutter Assessment/Plan: iv labetolol Code(s): I48.92 - UNSPECIFIED ATRIAL FLUTTER (5) Abdominal fluid collection Assessment/Plan: IR for biopsy Code(s): R18.8 - OTHER ASCITES (6) History of UTI Assessment/Plan: VRe in urine isolation Code(s): Z87.440 - PERSONAL HISTORY OF URINARY (TRACT) INFECTIONS (7) Electrolyte abnormality Assessment/Plan: hypokalemia repleted Code(s): E87.8 - OTH DISORDERS OF ELECTROLYTE AND FLUID BALANCE, NEC (8) Pleural effusion Assessment/Plan: lasix cxr noted left sided pleural effusion Code(s): J90 - PLEURAL EFFUSION, NOT ELSEWHERE CLASSIFIED
[2018-12-05] MEDS ORDERED: AMIODARONE IN DEXTROSE,ISO-OSM 360 MG/200 ML BAG IVPB SCH (13:45)
[2018-12-05] MEDS ORDERED: AMIODARONE HCL 150 MG/3 ML VIAL ONE (19:31)
[2018-12-05] MEDS: CHLORHEXIDINE GLUCONATE 4% CLEANSER FOR DECOLONIZATION TP SCH (22:08)
[2018-12-06 06:25] LABS: BASO % 0.3 % (0-2.0); HEMATOCRIT 27.5 % (35.4-49); LYMPH % 25.1 % (8-40); MCH 28.4 pg (25.7-33.7); MCHC 32.7 g/dl (32.0-35.9); MEAN CELL VOLUME 86.8 fl (80-96); MEAN PLT VOLUME 9.6 fl (7.5-11.1); NEUT % 58.6 % (42.8-82.8); PLATELET COUNT 209 K/MM3 (134-434); RBC 3.16 M/mm3 (4.00-5.60); RDW 18.3 % (11.9-15.9); WHITE BLOOD COUNT 4.3 K/mm3 (4.0-10.0)
[2018-12-06 06:54] LABS: INR 1.17 (0.83-1.09); PROTHROMBIN TIME (PATIENT) 13.8 SEC (9.7-13.0)
[2018-12-06 06:56] LABS: ACTIVATED PTT 24.1 SECONDS (25.2-36.5)
[2018-12-06 07:14] LABS: ALBUMIN 1.7 g/dl (3.4-5.0); BILIRUBIN,TOTAL 0.4 mg/dL (0.2-1); CALCIUM 7.6 mg/dL (8.5-10.1); CREATININE 0.7 mg/dL (0.55-1.3); MAGNESIUM 1.6 mg/dL (1.8-2.4); PHOSPHOROUS 3.4 mg/dL (2.5-4.9); POTASSIUM 3.3 mmol/L (3.5-5.1)
[2018-12-06] MEDS ORDERED: KCL 10 MEQ IVPB 10 MEQ/100 ML INFUS.BAG IVPB SCH (07:30)
--- NOTE | 2018-12-06 07:56 | PN ---
Physical Exam: SUBJECTIVE: Patient seen and examined at bedside. No acute events overnight. Had biopsy of mass found on CT in L hip/groin area. OBJECTIVE: Vital Signs Period Temp Pulse Resp BP Sys/Howe Pulse Ox Last 24 Hr 97.8 F-98.4 F 104-120 17-32 97-151/65-96 97-100 GENERAL: The patient is awake, alert, aphasic at baseline HEAD: s/p R craniotomy EYES: PERRL, extraocular movements intact, sclera anicteric, conjunctiva clear. No ptosis. . LUNGS: Decreased sounds at bases, vented through trach HEART: tachycardia, S1, S2 without murmur, rub or gallop. ABDOMEN: Soft, nontender, nondistended, normoactive bowel sounds, no guarding, no rebound, no hepatosplenomegaly, no masses. G tube in place EXTREMITIES: 1+ edema in L hand and L foot up to ankle. 2+ pulses, warm, well- perfused. NEUROLOGICAL: L hemiparesis SKIN: Warm, dry, normal turgor, no rashes or lesions noted Laboratory Results - last 24 hr 12/05/18 12/05/18 12/06/18 06:30 12:00 05:15 WBC 4.3 RBC 3.16 L Hgb 9.0 L Hct 27.5 L MCV 86.8 MCH 28.4 MCHC 32.7 RDW 18.3 H Plt Count 209 MPV 9.6 Absolute Neuts (auto) 2.5 Neutrophils % 58.6 Neutrophils % (Manual) 63.3 Band Neutrophils % 0.0 Lymphocytes % 25.1 Lymphocytes % (Manual) 20.4 Monocytes % 15.0 H Monocytes % (Manual) 15 H D Eosinophils % 1.0 Eosinophils % (Manual) 0.0 D Basophils % 0.3 Basophils % (Manual) 0.0 Myelocytes % (Man) 0 D Promyelocytes % (Man) 0 Blast Cells % (Manual) 0 Nucleated RBC % 0 Metamyelocytes 1 D Hypochromia 0 Platelet Estimate Normal Polychromasia 1+ Poikilocytosis 3+ Anisocytosis 1+ Microcytosis 1+ Macrocytosis 1+ Ovalocytes 1+ PT with INR INR PTT (Actin FS) Sodium Potassium Chloride Carbon Dioxide Anion Gap BUN Creatinine Est GFR (CKD-EPI)AfAm Est GFR (CKD-EPI)NonAf Random Glucose Calcium Phosphorus Magnesium Total Bilirubin AST ALT Alkaline Phosphatase Total Protein Albumin Vancomycin Pre-Dose 16.6 L 12/06/18 12/06/18 05:15 05:15 WBC RBC Hgb Hct MCV MCH MCHC RDW Plt Count MPV Absolute Neuts (auto) Neutrophils % Neutrophils % (Manual) Band Neutrophils % Lymphocytes % Lymphocytes % (Manual) Monocytes % Monocytes % (Manual) Eosinophils % Eosinophils % (Manual) Basophils % Basophils % (Manual) Myelocytes % (Man) Promyelocytes % (Man) Blast Cells % (Manual) Nucleated RBC % Metamyelocytes Hypochromia Platelet Estimate Polychromasia Poikilocytosis Anisocytosis Microcytosis Macrocytosis Ovalocytes PT with INR 13.80 H INR 1.17 H PTT (Actin FS) 24.1 L Sodium 145 Potassium 3.3 L Chloride 115 H Carbon Dioxide 23 Anion Gap 7 L BUN 5 L Creatinine 0.7 Est GFR (CKD-EPI)AfAm 109.27 Est GFR (CKD-EPI)NonAf 94.28 Random Glucose 75 Calcium 7.6 L Phosphorus 3.4 Magnesium 1.6 L Total Bilirubin 0.4 AST 17 ALT 16 Alkaline Phosphatase 148 H Total Protein 5.0 L Albumin 1.7 L Vancomycin Pre-Dose Active Medications Generic Name Dose Route Start Last Admin Trade Name Freq PRN Reason Stop Dose Admin Acetaminophen 1,000 mg 12/03/18 05:26 12/03/18 14:41 Ofirmev Injection - IVPB 1,000 mg Q6H PRN Administration FEVER Amiodarone HCl 200 mg 12/06/18 10:00 Cordarone - PO DAILY GRETCHEN Chlorhexidine Gluconate 1 applic 12/03/18 22:00 12/05/18 22:08 Hibiclens For Decolonization - TP 1 applic HS GRETCHEN Administration Heparin Sodium (Porcine) 5,000 unit 12/03/18 06:00 12/05/18 05:59 Heparin - SQ 5,000 unit TID GRETCHEN Administration Ertapenem 1 gm/ Sodium 50 mls @ 100 mls/hr 12/03/18 10:00 12/05/18 11:38 Chloride IVPB 100 mls/hr DAILY GRETCHEN Administration Vancomycin HCl 1,000 mg in 250 mls @ 166.667 mls/hr 12/03/18 11:30 12/05/18 23:55 Vancomycin (Pre-Docked) IVPB 166.667 mls/hr Q12H GRETCHEN Administration Protocol Potassium Chloride 10 meq in 100 mls @ 100 mls/hr 12/06/18 07:30 Potassium Chloride 10 Meq Premix Ivpb - IVPB 12/06/18 10:29 Q60M [facility] Metoprolol Tartrate 5 mg 12/03/18 18:37 12/03/18 18:45 Lopressor Injection - IVPUSH 5 mg Q4H PRN Administration HYPERTENSION Mupirocin 1 applic 12/03/18 10:00 12/05/18 22:08 Bactroban Ointment (For Decolonization) - NS 12/08/18 09:59 1 applic BID GRETCHEN Administration ASSESSMENT/PLAN: The patient is a 73 yo m w/ PMH right sided hemorrhagic stroke w/residual Lt hemiparesis and expressive aphasia who was BIBEMS from [facility] after he was found to have a rectal Temp of 106. NEURO -History of hemorrhagic stroke with residual L hemiparesis -S/p R craniotomy -Expressive aphasia at baseline PULM -Sepsis 2/2 PNA vs aspiration pneumonitis -S/p trach and vented -CTAP: PNA v. Atalectasis -Sputum cultures: MRSA, enterobacter Cloacae, p. Mirabilis, alpha hemolytic strep -Vanc and ertapenem per ID day 4 -SpO2 >90 -ID consulted CARDIO/VASC -2:1 Aflutter with HR to 150s -Current rhythm sinus -HR controlled -Cardiology consulting, appreciating recommendations -Switching from amiodarone IV to PO -R subclavian line to be removed, not on pressors -Maintaining MAP >60-65 -Echo: afib, EF 45-50% HEME/ONC -Neutropenic on admission -Will trend GI -S/p PEG -CTAP: fluid filled mass with calcifications abutting cecum likely fluid filled cecum -Mass in L lower pelvis/groin area: hematoma v. abscess v. neoplasm -Mass is new finding. Last CTAP at [facility] 10/2018 -IR consulted, biopsy pending ID -Sepsis 2/2 PNA v. Aspiration -ID consulting -Vanc, ertapenem day 4 -Has been afebrile ENDO -HypoK, HypoMg -Will replete -Trend FEN -Monitor lytes -Enteral feeds PROPHYLAXIS -Heparin sc Dispo Stable for transfer to floors Visit type - Emergency Visit Emergency Visit: Yes ED Registration Date: 12/01/18 Care time: The patient presented to the Emergency Department on the above date and was hospitalized for further evaluation of their emergent condition. - New Patient This patient is new to me today: No - Critical Care Critical Care patient: Yes Total Critical Care Time (in minutes): 35 Critical Care Statement: The care of this patient involved high complexity decision making to prevent further life threatening deterioration of the patient 's condition and/or to evaluate & treat vital organ system(s) failure or risk of failure.
[2018-12-06] MEDS ORDERED: POTASSIUM CHLORIDE TABS 10 MEQ TABLET.ER (FP) PO ONE (07:57)
[2018-12-06] MEDS ORDERED: POTASSIUM CHLORIDE ORAL LIQUID 20 MEQ/15 ML PO ONE (07:59)
[2018-12-06] MEDS ORDERED: PT OWN MED DRAWER 7, Y5N ONE (08:01)
[2018-12-06] MEDS ORDERED: MAGNESIUM SULF 50% (8.12 MEQ/2 ML-1 GM VIAL) IVPB ONE (08:48)
[2018-12-06] MEDS: HEPARIN NA (PORCINE) 5,000 UNITS/ML 1ML VIAL SQ SCH ×3 (09:17→21:20)
[2018-12-06] MEDS: MUPIROCIN 2% TOPICAL OINTMENT FOR DECOLONIZATION NS SCH ×2 (09:17→21:22)
--- NOTE | 2018-12-06 09:22 | PN ---
Progress Note, Physician - Current Medication List Current Medications: Active Medications Acetaminophen (Ofirmev Injection -) 1,000 mg IVPB Q6H PRN PRN Reason: FEVER Last Admin: 12/03/18 14:41 Dose: 1,000 mg Amiodarone HCl (Cordarone -) 200 mg GT DAILY [facility] Last Admin: 12/06/18 09:18 Dose: 200 mg Chlorhexidine Gluconate (Hibiclens For Decolonization -) 1 applic TP HS [facility] Last Admin: 12/05/18 22:08 Dose: 1 applic Heparin Sodium (Porcine) (Heparin -) 5,000 unit SQ TID [facility] Last Admin: 12/06/18 09:17 Dose: Not Given Ertapenem 1 gm/ Sodium (Chloride) 50 mls @ 100 mls/hr IVPB DAILY [facility] Last Admin: 12/05/18 11:38 Dose: 100 mls/hr Vancomycin HCl (Vancomycin (Pre-Docked)) 1,000 mg in 250 mls @ 166.667 mls/hr IVPB Q12H [facility]; Protocol Last Admin: 12/05/18 23:55 Dose: 166.667 mls/hr Metoprolol Tartrate (Lopressor Injection -) 5 mg IVPUSH Q4H PRN PRN Reason: HYPERTENSION Last Admin: 12/03/18 18:45 Dose: 5 mg Mupirocin (Bactroban Ointment (For Decolonization) -) 1 applic NS BID [facility] Stop: 12/08/18 09:59 Last Admin: 12/06/18 09:17 Dose: 1 applic - Objective Vital Signs: Vital Signs Temperature 98 F 12/06/18 06:00 Pulse Rate 110 H 12/06/18 08:32 Respiratory Rate 23 H 12/06/18 08:32 Blood Pressure 151/81 12/06/18 07:19 O2 Sat by Pulse Oximetry (%) 96 12/06/18 08:32 Labs: CBC, BMP 12/06/18 05:15 12/06/18 05:15 INR, PTT INR 1.17 (0.83-1.09) H 12/06/18 05:15 Problem List - Problems (1) Neutropenic sepsis Code(s): A41.9 - SEPSIS, UNSPECIFIED ORGANISM; D70.9 - NEUTROPENIA, UNSPECIFIED (2) History of UTI Code(s): Z87.440 - PERSONAL HISTORY OF URINARY (TRACT) INFECTIONS (3) Abdominal fluid collection Code(s): R18.8 - OTHER ASCITES (4) CVA (cerebral vascular accident) Code(s): I63.9 - CEREBRAL INFARCTION, UNSPECIFIED
[2018-12-06] MEDS: ERTAPENEM SODIUM 1 GM in SODIUM CHLORIDE 50 ML IVPB SCH (09:48)
[2018-12-06] MEDS ORDERED: AMIODARONE HCL 200 MG TABLET (FP) GT SCH (10:00)
[2018-12-06] MEDS ORDERED: AMIODARONE HCL 200 MG TABLET (FP) PO SCH (10:00)
[2018-12-06] MEDS: VANCOMYCIN 1 GRAM (PRE-DOCKED) 1,000 MG/250 ML BAG IVPB SCH ×2 (10:31→22:54)
[2018-12-06 11:05] LABS: ANISOCYTOSIS 1+; MACROCYTOSIS 1+; OVALOCYTE 1+; PLATELET ESTIMATE NORMAL
--- NOTE | 2018-12-06 12:02 | PN ---
Teaching Attending Note Name of Resident: Susan Cam ATTENDING PHYSICIAN STATEMENT I saw and evaluated the patient. I reviewed the resident's note and discussed the case with the resident. I agree with the resident's findings and plan as documented. SUBJECTIVE: Patient seen and examined in the ICU. Vented on AC Mode. Arousable and interactive. No pressors. Hemodynamics stable. Off IV Labetalol with improving rate control. OBJECTIVE: Intake & Output 12/03/18 12/04/18 12/05/18 12/06/18 23:59 23:59 23:59 23:59 Intake Total 1825 3175 2190 Output Total 1450 1400 1150 Balance 375 1775 1040 Weight 157 lb 1.6 oz 159 lb 3.2 oz 165 lb 8 oz 166 lb Last Vital Signs Temp Pulse Resp BP Pulse Ox 98 F 106 H 26 H 120/63 96 12/06/18 06:00 12/06/18 11:00 12/06/18 11:30 12/06/18 11:00 12/06/18 08:32 Active Medications Acetaminophen (Ofirmev Injection -) 1,000 mg IVPB Q6H PRN PRN Reason: FEVER Last Admin: 12/03/18 14:41 Dose: 1,000 mg Amiodarone HCl (Cordarone -) 200 mg GT DAILY [facility] Last Admin: 12/06/18 09:18 Dose: 200 mg Chlorhexidine Gluconate (Hibiclens For Decolonization -) 1 applic TP HS [facility] Last Admin: 12/05/18 22:08 Dose: 1 applic Heparin Sodium (Porcine) (Heparin -) 5,000 unit SQ TID [facility] Last Admin: 12/06/18 09:17 Dose: Not Given Ertapenem 1 gm/ Sodium (Chloride) 50 mls @ 100 mls/hr IVPB DAILY [facility] Last Admin: 12/06/18 09:48 Dose: 100 mls/hr Vancomycin HCl (Vancomycin (Pre-Docked)) 1,000 mg in 250 mls @ 166.667 mls/hr IVPB Q12H [facility]; Protocol Last Admin: 12/06/18 10:31 Dose: 166.667 mls/hr Metoprolol Tartrate (Lopressor Injection -) 5 mg IVPUSH Q4H PRN PRN Reason: HYPERTENSION Last Admin: 12/03/18 18:45 Dose: 5 mg Mupirocin (Bactroban Ointment (For Decolonization) -) 1 applic NS BID [facility] Stop: 12/08/18 09:59 Last Admin: 12/06/18 09:17 Dose: 1 applic Gen: vented, awake and interactive Heart: S1S2 Lung: Vented, scattered rhonchi Abd: soft, nontender, (+) BS Ext: no edema 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: Left 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 Laboratory Results - last 24 hr 12/05/18 12/06/18 12/06/18 12:00 05:15 05:15 WBC 4.3 RBC 3.16 L Hgb 9.0 L Hct 27.5 L MCV 86.8 MCH 28.4 MCHC 32.7 RDW 18.3 H Plt Count 209 MPV 9.6 Absolute Neuts (auto) 2.5 Neutrophils % 58.6 Lymphocytes % 25.1 Monocytes % 15.0 H Eosinophils % 1.0 Basophils % 0.3 Nucleated RBC % 0 PT with INR INR PTT (Actin FS) Sodium 145 Potassium 3.3 L Chloride 115 H Carbon Dioxide 23 Anion Gap 7 L BUN 5 L Creatinine 0.7 Est GFR (CKD-EPI)AfAm 109.27 Est GFR (CKD-EPI)NonAf 94.28 Random Glucose 75 Calcium 7.6 L Phosphorus 3.4 Magnesium 1.6 L Total Bilirubin 0.4 AST 17 ALT 16 Alkaline Phosphatase 148 H Total Protein 5.0 L Albumin 1.7 L Vancomycin Pre-Dose 16.6 L 12/06/18 05:15 WBC RBC Hgb Hct MCV MCH MCHC RDW Plt Count MPV Absolute Neuts (auto) Neutrophils % Lymphocytes % Monocytes % Eosinophils % Basophils % Nucleated RBC % PT with INR 13.80 H INR 1.17 H PTT (Actin FS) 24.1 L Sodium Potassium Chloride Carbon Dioxide Anion Gap BUN Creatinine Est GFR (CKD-EPI)AfAm Est GFR (CKD-EPI)NonAf Random Glucose Calcium Phosphorus Magnesium Total Bilirubin AST ALT Alkaline Phosphatase Total Protein Albumin Vancomycin Pre-Dose ASSESSMENT AND PLAN: Rapid Atrial Flutter requiring IV Labetalol for rate control Neutropenic Severe Sepsis Pneumonia Lactic Acidosis Chronic Respiratory Failure Recent Hemorrhagic Stroke - Rate control meds per Cardiology - ABX per ID - Diuresis - monitor urine output, creatinine - continue volume assist control - enteral feeds - DVT/GI prophylaxis - Vent floor monitoring Dr Mahajan
[2018-12-06] MEDS ORDERED: FUROSEMIDE 40 MG/4 ML INJECTABLE VIAL IVPUSH ONE (12:04)
--- NOTE | 2018-12-06 12:18 | PN ---
Progress Note, Physician History of Present Illness: seen and examined today in nad. awake and alert, unable to provide a history. - Current Medication List Current Medications: Active Medications Amiodarone HCl (Cordarone -) 200 mg GT DAILY [facility] Chlorhexidine Gluconate (Hibiclens For Decolonization -) 1 applic TP HS [facility] Heparin Sodium (Porcine) (Heparin -) 5,000 unit SQ TID [facility] Ertapenem 1 gm/ Sodium (Chloride) 50 mls @ 100 mls/hr IVPB DAILY [facility] Vancomycin HCl (Vancomycin (Pre-Docked)) 1,000 mg in 250 mls @ 166.667 mls/hr IVPB Q12H [facility]; Protocol Mupirocin (Bactroban Ointment (For Decolonization) -) 1 applic NS BID [facility] Stop: 12/08/18 09:59 - Objective Vital Signs: Vital Signs Temperature 98 F 12/06/18 06:00 Pulse Rate 106 H 12/06/18 11:00 Respiratory Rate 26 H 12/06/18 11:30 Blood Pressure 120/63 12/06/18 11:00 O2 Sat by Pulse Oximetry (%) 96 12/06/18 08:32 Constitutional: Yes: No Distress, Calm Eyes: Yes: Conjunctiva Clear Cardiovascular: Yes: Tachycardia, Pulse Irregular, S1, S2. No: Regular Rate and Rhythm, Bradycardia, Bruit, JVD, Gallop, Murmur, Rub, S3, S4, Varicosities Respiratory: Yes: Regular, Diminished, Mechanically Ventilated. No: Rales, Rhonchi, SOB, Wheezes Gastrointestinal: Yes: Normal Bowel Sounds Edema: No Peripheral Pulses WNL: Yes Neurological: Yes: Alert Psychiatric: Yes: Alert Labs: CBC, BMP 12/06/18 05:15 12/06/18 05:15 INR, PTT INR 1.17 (0.83-1.09) H 12/06/18 05:15 - ....Imaging Chest X-ray: Report Reviewed, Image Reviewed EKG: Report Reviewed, Image Reviewed Other: Report Reviewed, Image Reviewed (tele-aflutter/afib HR 110bpm, better controlled) Assessment/Plan 73 y/o male BIBEMS to [facility] ER from [facility] with fever of 106, tachycardia, and hypoxic to high 80s (per EMS crew). The pt is s/p trach and PEG dependent s/p Right MCA CVA one month ago complicated by ICH s/p craniotomy at [facility] Found with neutropenic fever, lactic acidosis and respiratory failure. Transferred from ICU to floor, noted with tachycardia, HR 150 ECG c/w atrial flutter with 2:1 block. Given IV amiodarone then IV diltiazem without effect. Transferred to ICU. He continues to remain in an atrial arrhythmia though HR is slower. --HR better controlled --has been transitioned to po Amiodarone --Correct hypokalemia >4 and Mg>2 --Start Amiodarone 1mg/min [id number] then 0.5mg/min --abx and sepsis mgt per ICU team --echo 12/05/18 in setting of rapid afib showed mildly reduced LVEF, mild valvular abnl --tfts --not an ac candidate at present, recent craniotomy. -He has a possible pelvic abcess. There is no cardiac contraindication to drainage as the benefits would outweigh the risks.
--- NOTE | 2018-12-06 12:53 | PN ---
Progress Note (short form) - Note Progress Note: afebrile s/p IR biopsy Vital Signs Period Temp Pulse Resp BP Sys/Howe Pulse Ox Last 24 Hr 97.8 F-98 F 104-120 17-32 97-151/63-96 96-100 cor-rrr lungs decreased bs at bases abd soft,nt ext no edema tach to vent CBC, BMP 12/06/18 05:15 12/06/18 05:15 Microbiology 12/01/18 04:36 Blood - Peripheral Venous Blood Culture - Final NO GROWTH AFTER 5 DAYS INCUBATION 12/01/18 04:36 Blood - Peripheral Venous Blood Culture - Final NO GROWTH AFTER 5 DAYS INCUBATION 12/01/18 09:08 Sputum - Endotrachea Suction/Ventilator Gram Stain - Final 12/01/18 09:08 Sputum - Endotrachea Suction/Ventilator Sputum Culture - Final Enterobacter Cloacae Mr S Aureus Alpha Hemolytic Streptococcus Proteus Mirabilis 12/01/18 18:44 Urine - Urine Mckeon Legionella Antigen - Final 12/01/18 18:44 Urine - Urine Mckeon Streptococcus pneumoniae Antigen (M - Final 12/01/18 04:45 Urine - Urine - Catheterized Urine Culture - Final NO GROWTH OBTAINED Current Medications Amiodarone HCl (Cordarone -) 200 mg GT DAILY [facility] Chlorhexidine Gluconate (Hibiclens For Decolonization -) 1 applic TP HS [facility] Heparin Sodium (Porcine) (Heparin -) 5,000 unit SQ TID [facility] Ertapenem 1 gm/ Sodium (Chloride) 50 mls @ 100 mls/hr IVPB DAILY [facility] Vancomycin HCl (Vancomycin (Pre-Docked)) 1,000 mg in 250 mls @ 166.667 mls/hr IVPB Q12H [facility]; Protocol Mupirocin (Bactroban Ointment (For Decolonization) -) 1 applic NS BID [facility] Stop: 12/08/18 09:59 a/p fevers-improved ?aspiration pneumonia , s/p IR guided biopsy of mass s/p hemorrhagic CVA with craniotomy vancomycin/ertapenem day #4 repeat vanco trough 16.6
--- NOTE | 2018-12-06 15:46 | PATH ---
Surgical Pathology Report Patient Name: KARAN LIND Med. Rec. 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 Specimen(s) Received LEFT HIP CT-GUIDED BX Clinical History Left hip periarticular mass, partially calcified r/o spinal neoplasm, sarcoma Final Diagnosis HIP, LEFT, CT- GUIDED CORE BIOPSY: SCANT FIBROADIPOSE/FIBROCOLLAGENOUS TISSUE AND SKELETAL MUSCLE; INSUFFICIENT FOR DIAGNOSIS. Comment: case discussed with Dr. Velarde on 12/06/18. Electronically Signed Itzel Gilbert M.D. Gross Description Received in formalin, labeled "left hip CT biopsy" are three parry and yellow cores of tissue ranging from 0.4-0.8 in length with a diameter of < 1 mm. Entirely submitted in one cassette. AE/12/05/2018 ebram/12/05/2018
[2018-12-06] MEDS ORDERED: CHLORHEXIDINE GLUCONATE 4% CLEANSER FOR DECOLONIZATION TP SCH (22:00)
[2018-12-07] MEDS: HEPARIN NA (PORCINE) 5,000 UNITS/ML 1ML VIAL SQ SCH ×2 (06:09→13:06)
[2018-12-07 06:51] LABS: BASO % 0.5 % (0-2.0); EOS % 1.3 % (0-4.5); HEMOGLOBIN 9.6 GM/dL (11.7-16.9); LYMPH % 29.8 % (8-40); MCHC 33.1 g/dl (32.0-35.9); MEAN CELL VOLUME 87.4 fl (80-96); MEAN PLT VOLUME 8.9 fl (7.5-11.1); MONO % 16.7 % (3.8-10.2); NEUT % 51.7 % (42.8-82.8); PLATELET COUNT 272 K/MM3 (134-434); RBC 3.32 M/mm3 (4.00-5.60); RDW 18.4 % (11.9-15.9); WHITE BLOOD COUNT 5.5 K/mm3 (4.0-10.0)
[2018-12-07 07:28] LABS: CALCIUM 7.8 mg/dL (8.5-10.1); CREATININE 0.8 mg/dL (0.55-1.3); MAGNESIUM 1.8 mg/dL (1.8-2.4); PHOSPHOROUS 3.7 mg/dL (2.5-4.9); POTASSIUM 3.5 mmol/L (3.5-5.1)
[2018-12-07] MEDS ORDERED: PT OWN MED DRAWER 7, Y5N ONE (07:40)
--- NOTE | 2018-12-07 07:57 | PN ---
Progress Note, Physician - Current Medication List Current Medications: Active Medications Amiodarone HCl (Cordarone -) 200 mg GT DAILY [facility] Chlorhexidine Gluconate (Hibiclens For Decolonization -) 1 applic TP HS [facility] Last Admin: 12/06/18 21:21 Dose: 1 applic Heparin Sodium (Porcine) (Heparin -) 5,000 unit SQ TID [facility] Last Admin: 12/07/18 06:09 Dose: 5,000 unit Ertapenem 1 gm/ Sodium (Chloride) 50 mls @ 100 mls/hr IVPB DAILY [facility] Vancomycin HCl (Vancomycin (Pre-Docked)) 1,000 mg in 250 mls @ 166.667 mls/hr IVPB Q12H [facility]; Protocol Last Admin: 12/06/18 22:54 Dose: 166.667 mls/hr Mupirocin (Bactroban Ointment (For Decolonization) -) 1 applic NS BID [facility] Stop: 12/08/18 09:59 Last Admin: 12/06/18 21:22 Dose: 1 applic - Objective Vital Signs: Vital Signs Temperature 99 F 12/07/18 05:00 Pulse Rate 112 H 12/07/18 07:00 Respiratory Rate 24 H 12/07/18 07:32 Blood Pressure 143/74 12/07/18 07:00 O2 Sat by Pulse Oximetry (%) 97 12/07/18 07:32 Cardiovascular: Yes: S1, S2 Respiratory: Yes: Regular, CTA Bilaterally Gastrointestinal: Yes: Normal Bowel Sounds, Soft Labs: CBC, BMP 12/07/18 05:30 12/07/18 05:30 INR, PTT INR 1.17 (0.83-1.09) H 12/06/18 05:15 Problem List - Problems (1) Neutropenic sepsis Assessment/Plan: vancomycin/ertapenem day #4 ID and pulm trend lactic acid- now normal cultures noted ct -scan abdomen/pelvis - fluid filled pelvic structure near the cecum afebrile heme on board Code(s): A41.9 - SEPSIS, UNSPECIFIED ORGANISM; D70.9 - NEUTROPENIA, UNSPECIFIED (2) History of UTI Assessment/Plan: --h/o CRE Microbiology 12/01/18 04:36 Blood - Peripheral Venous Blood Culture - Final NO GROWTH AFTER 5 DAYS INCUBATION 12/01/18 04:36 Blood - Peripheral Venous Blood Culture - Final NO GROWTH AFTER 5 DAYS INCUBATION 12/01/18 09:08 Sputum - Endotrachea Suction/Ventilator Gram Stain - Final 12/01/18 09:08 Sputum - Endotrachea Suction/Ventilator Sputum Culture - Final Enterobacter Cloacae Mr S Aureus Alpha Hemolytic Streptococcus Proteus Mirabilis 12/01/18 18:44 Urine - Urine Mckeon Legionella Antigen - Final 12/01/18 18:44 Urine - Urine Mckeon Streptococcus pneumoniae Antigen (M - Final 12/01/18 04:45 Urine - Urine - Catheterized Urine Culture - Final NO GROWTH OBTAINED -Isolation Code(s): Z87.440 - PERSONAL HISTORY OF URINARY (TRACT) INFECTIONS (3) Abdominal fluid collection Assessment/Plan: -ct scan with contrast noted -S/P biopsy Code(s): R18.8 - OTHER ASCITES (4) CVA (cerebral vascular accident) Assessment/Plan: s/p trach and peg dvt ppx Code(s): I63.9 - CEREBRAL INFARCTION, UNSPECIFIED (5) Afib Assessment/Plan: no ac due to recent craniotomy Code(s): I48.91 - UNSPECIFIED ATRIAL FIBRILLATION
[2018-12-07] MEDS: MUPIROCIN 2% TOPICAL OINTMENT FOR DECOLONIZATION NS SCH (09:09)
[2018-12-07] MEDS ORDERED: POTASSIUM CHLORIDE TABS 20 MEQ TABLET.ER (FP) PO ONE (09:44)
[2018-12-07] MEDS ORDERED: ERTAPENEM SODIUM 1 GM in SODIUM CHLORIDE 50 ML IVPB SCH (10:00)
[2018-12-07] MEDS ORDERED: AMIODARONE HCL 200 MG TABLET (FP) GT SCH (10:00)
[2018-12-07 10:38] LABS: MACROCYTOSIS 1+; OVALOCYTE 1+; PLATELET ESTIMATE NORMAL
[2018-12-07] MEDS: VANCOMYCIN 1 GRAM (PRE-DOCKED) 1,000 MG/250 ML BAG IVPB SCH (11:10)
[2018-12-07] MEDS ORDERED: METOPROLOL TARTRATE 5 MG/5 ML VIAL IVPUSH ONE (11:15)
[2018-12-07] MEDS ORDERED: POTASSIUM CHLORIDE ORAL LIQUID 20 MEQ/15 ML GT ONE (11:16)
[2018-12-07 11:32] LABS: ANISOCYTOSIS 1+
[2018-12-07] MEDS ORDERED: METOPROLOL TARTRATE 50 MG TABLET (FP) GT SCH ×2 (12:15→22:00)
--- NOTE | 2018-12-07 12:22 | PN ---
Progress Note, Physician History of Present Illness: Patient seen and examined at bedside. No events overnight. No new complaints. - Current Medication List Current Medications: Active Medications Amiodarone HCl (Cordarone -) 200 mg GT DAILY [facility] Last Admin: 12/07/18 09:09 Dose: 200 mg Chlorhexidine Gluconate (Hibiclens For Decolonization -) 1 applic TP HS [facility] Last Admin: 12/06/18 21:21 Dose: 1 applic Heparin Sodium (Porcine) (Heparin -) 5,000 unit SQ TID [facility] Last Admin: 12/07/18 06:09 Dose: 5,000 unit Ertapenem 1 gm/ Sodium (Chloride) 50 mls @ 100 mls/hr IVPB DAILY [facility] Last Admin: 12/07/18 09:10 Dose: 100 mls/hr Vancomycin HCl (Vancomycin (Pre-Docked)) 1,000 mg in 250 mls @ 166.667 mls/hr IVPB Q12H [facility]; Protocol Last Admin: 12/07/18 11:10 Dose: 166.667 mls/hr Mupirocin (Bactroban Ointment (For Decolonization) -) 1 applic NS BID [facility] Stop: 12/08/18 09:59 Last Admin: 12/07/18 09:09 Dose: 1 applic Non-Formulary Medication (Metoprolol Tartrate [Metoprolol Tartrate]) 100 mg GT BID [facility] Potassium Phos/Sodium Phos (Phos-Nak Packet -) 1 packet PO TID [facility] - Objective Vital Signs: Vital Signs Temperature 99.7 F H 12/07/18 10:10 Pulse Rate 115 H 12/07/18 11:36 Respiratory Rate 28 H 12/07/18 11:36 Blood Pressure 138/76 12/07/18 11:36 O2 Sat by Pulse Oximetry (%) 100 12/07/18 08:37 Constitutional: Yes: Well Nourished, No Distress, Calm Cardiovascular: Yes: Regular Rate and Rhythm, S1, S2. No: Gallop, Murmur, Rub Respiratory: Yes: Regular, CTA Bilaterally, Mechanically Ventilated Gastrointestinal: Yes: Normal Bowel Sounds, Soft. 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 NEURO -History of hemorrhagic stroke with residual L hemiparesis -S/p R craniotomy -Expressive aphasia at baseline PULM -Sepsis 2/2 PNA vs aspiration pneumonitis -S/p trach and vented -Sputum cultures: MRSA, enterobacter Cloacae, p. Mirabilis, alpha hemolytic strep -Vanc and ertapenem per ID day 5 -SpO2 >90 -ID consulted CARDIO/VASC -2:1 Aflutter with HR to 150s -Current rhythm sinus -HR controlled -Cardiology consulting, appreciating recommendations -on amiodarone 200mg GT daily -Rt subclavian line removed. -Echo: afib, EF 45-50% -heart rate remains elevated. Will give 5mg lopressor IV and restart home metoprolol tartrate 100mg BID HEME/ONC -Neutropenia resolved; likely 2/2 sepsis -Will trend GI -S/p PEG -Mass in L lower pelvis/groin area: hematoma v. abscess v. neoplasm -Mass is new finding. Last CTAP at [facility] 10/2018 -IR consulted, biopsy pending ID -Sepsis 2/2 PNA v. Aspiration -ID consulting -Vanc, ertapenem day 5 -Has been afebrile ENDO -HypoK, HypoMg -Will replete w/ 40meq KCL GT and phosNaK packets TID -Trend FEN -Monitor lytes -Enteral feeds PROPHYLAXIS -Heparin sc 5ku TID Dispo -Stable for transfer to floors
--- NOTE | 2018-12-07 13:21 | PN ---
Progress Note (short form) - Note Progress Note: afebrile transferred to floor and readmitted to ICU for tachycardia s/p IR biopsy Vital Signs Period Temp Pulse Resp BP Sys/Howe Pulse Ox Last 24 Hr 98.4 F-99.7 F 106-126 17-28 117-153/56-95 97-100 trach to vent cor-rrr lungs decreased bs at bases abd soft,nt ext no edema CBC, BMP 12/07/18 05:30 12/07/18 05:30 Microbiology 12/01/18 04:36 Blood - Peripheral Venous Blood Culture - Final NO GROWTH AFTER 5 DAYS INCUBATION 12/01/18 04:36 Blood - Peripheral Venous Blood Culture - Final NO GROWTH AFTER 5 DAYS INCUBATION 12/01/18 09:08 Sputum - Endotrachea Suction/Ventilator Gram Stain - Final 12/01/18 09:08 Sputum - Endotrachea Suction/Ventilator Sputum Culture - Final Enterobacter Cloacae Mr S Aureus Alpha Hemolytic Streptococcus Proteus Mirabilis 12/01/18 18:44 Urine - Urine Mckeon Legionella Antigen - Final 12/01/18 18:44 Urine - Urine Mckeon Streptococcus pneumoniae Antigen (M - Final 12/01/18 04:45 Urine - Urine - Catheterized Urine Culture - Final NO GROWTH OBTAINED Current Medications Amiodarone HCl (Cordarone -) 200 mg GT DAILY [facility] Last Admin: 12/07/18 09:09 Dose: 200 mg Chlorhexidine Gluconate (Hibiclens For Decolonization -) 1 applic TP HS [facility] Last Admin: 12/06/18 21:21 Dose: 1 applic Heparin Sodium (Porcine) (Heparin -) 5,000 unit SQ TID [facility] Last Admin: 12/07/18 13:06 Dose: 5,000 unit Ertapenem 1 gm/ Sodium (Chloride) 50 mls @ 100 mls/hr IVPB DAILY [facility] Last Admin: 12/07/18 09:10 Dose: 100 mls/hr Vancomycin HCl (Vancomycin (Pre-Docked)) 1,000 mg in 250 mls @ 166.667 mls/hr IVPB Q12H [facility]; Protocol Last Admin: 12/07/18 11:10 Dose: 166.667 mls/hr Metoprolol Tartrate (Lopressor -) 100 mg GT BID [facility] Last Admin: 12/07/18 12:56 Dose: 100 mg Mupirocin (Bactroban Ointment (For Decolonization) -) 1 applic NS BID [facility] Stop: 12/08/18 09:59 Last Admin: 12/07/18 09:09 Dose: 1 applic Potassium Phos/Sodium Phos (Phos-Nak Packet -) 1 packet PO TID [facility] Last Admin: 12/07/18 13:06 Dose: 1 packet a/p fevers-improved ?aspiration pneumonia , s/p IR guided biopsy of mass s/p hemorrhagic CVA with craniotomy vancomycin/ertapenem day #5 repeat vanco trough 16.6
--- NOTE | 2018-12-07 13:25 | PN ---
Teaching Attending Note Name of Resident: Jermaine Guo ATTENDING PHYSICIAN STATEMENT I saw and evaluated the patient. I reviewed the resident's note and discussed the case with the resident. I agree with the resident's findings and plan as documented. SUBJECTIVE: Pt seen and examined in the ICU. Vented, poorly responsive. Heart rates rapid. No fevers recorded. OBJECTIVE: Vital Signs Period Temp Pulse Resp BP Sys/Howe Pulse Ox Last 24 Hr 98.4 F-99.7 F 106-126 17-28 117-153/56-95 97-100 Intake & Output 12/04/18 12/05/18 12/06/18 12/07/18 23:59 23:59 23:59 23:59 Intake Total 3175 2190 1230 1600 Output Total 1400 1150 Balance 1775 1040 1230 1600 Weight 72.212 kg 75.07 kg 71.214 kg 70.023 kg Gen: vented, poorly responsive Heart: tachycardic, irregular Lung: scattered rhonchi Abd: soft, nontender Ext: no edema CBC, BMP 12/07/18 05:30 12/07/18 05:30 Active Medications Amiodarone HCl (Cordarone -) 200 mg GT DAILY [facility] Last Admin: 12/07/18 09:09 Dose: 200 mg Chlorhexidine Gluconate (Hibiclens For Decolonization -) 1 applic TP HS [facility] Last Admin: 12/06/18 21:21 Dose: 1 applic Heparin Sodium (Porcine) (Heparin -) 5,000 unit SQ TID [facility] Last Admin: 12/07/18 13:06 Dose: 5,000 unit Ertapenem 1 gm/ Sodium (Chloride) 50 mls @ 100 mls/hr IVPB DAILY [facility] Last Admin: 12/07/18 09:10 Dose: 100 mls/hr Vancomycin HCl (Vancomycin (Pre-Docked)) 1,000 mg in 250 mls @ 166.667 mls/hr IVPB Q12H [facility]; Protocol Last Admin: 12/07/18 11:10 Dose: 166.667 mls/hr Metoprolol Tartrate (Lopressor -) 100 mg GT BID [facility] Last Admin: 12/07/18 12:56 Dose: 100 mg Mupirocin (Bactroban Ointment (For Decolonization) -) 1 applic NS BID [facility] Stop: 12/08/18 09:59 Last Admin: 12/07/18 09:09 Dose: 1 applic Potassium Phos/Sodium Phos (Phos-Nak Packet -) 1 packet PO TID [facility] Last Admin: 12/07/18 13:06 Dose: 1 packet ASSESSMENT AND PLAN: Atrial Flutter with RVR Neutropenic Severe Sepsis Pneumonia Lactic Acidosis Chronic Respiratory Failure Recent Hemorrhagic Stroke - rate control - continue antibiotics - monitor urine output, creatinine - continue volume assist control - enteral feeds - DVT/GI prophylaxis - can monitor on vent floor when rates better controlled
[2018-12-07] MEDS ORDERED: NAPH,MB-DB/K PH,MBDB POWDER PACKET PO SCH ×2 (14:00→22:00)
--- NOTE | 2018-12-07 14:24 | PN ---
Progress Note, Physician Chief Complaint: Telem AFlutter at HR Vented trach. History of Present Illness: 73 y/o male BIBEMS to [facility] ER from [facility] with fever of 106, tachycardia, and hypoxic to high 80s (per EMS crew). The pt is s/p trach and PEG dependent s/p Right MCA CVA one month ago complicated by ICH s/p craniotomy at [facility]. Found with neutropenic fever, lactic acidosis and respiratory failure. Transferred from ICU to floor, noted with tachycardia, HR 150 ECG c/w atrial flutter with 2:1 block. Given IV amiodarone then IV diltiazem without effect. Transferred to ICU given metoprolol converted to nsr, then afib with mildly RVR. The patient is nonverbal and cannot give a history. sp IR biopsy of pelvis - Current Medication List Current Medications: Active Medications Amiodarone HCl (Cordarone -) 200 mg GT DAILY [facility] Heparin Sodium (Porcine) (Heparin -) 5,000 unit SQ TID [facility] Ertapenem 1 gm/ Sodium (Chloride) 50 mls @ 100 mls/hr IVPB DAILY [facility] Vancomycin HCl (Vancomycin (Pre-Docked)) 1,000 mg in 250 mls @ 166.667 mls/hr IVPB Q12H [facility]; Protocol Metoprolol Tartrate (Lopressor -) 100 mg GT BID [facility] Potassium Phos/Sodium Phos (Phos-Nak Packet -) 1 packet PO TID [facility] - Objective Vital Signs: Vital Signs Temperature 99.4 F 12/07/18 13:12 Pulse Rate 84 12/07/18 14:14 Respiratory Rate 24 H 12/07/18 14:14 Blood Pressure 136/81 12/07/18 14:14 O2 Sat by Pulse Oximetry (%) 100 12/07/18 08:37 Constitutional: Yes: No Distress, Calm Eyes: Yes: Conjunctiva Clear, EOM Intact HENT: Yes: Atraumatic, Normocephalic Neck: Yes: Supple, Trachea Midline Cardiovascular: Yes: Regular Rate and Rhythm, S1, S2. No: JVD Respiratory: Yes: CTA Bilaterally Gastrointestinal: Yes: Normal Bowel Sounds Edema: No Labs: CBC, BMP 12/07/18 05:30 12/07/18 05:30 INR, PTT INR 1.17 (0.83-1.09) H 12/06/18 05:15 Problem List - Problems (1) Atrial flutter Code(s): I48.92 - UNSPECIFIED ATRIAL FLUTTER Assessment/Plan 73 y/o male BIBEMS to [facility] ER from [facility] with fever of 106, tachycardia, and hypoxic to high 80s (per EMS crew). The pt is s/p trach and PEG dependent s/p Right MCA CVA one month ago complicated by ICH s/p craniotomy at [facility]. Found with neutropenic fever, lactic acidosis and respiratory failure. Transferred from ICU to floor, noted with tachycardia, HR 150 ECG c/w atrial flutter with 2:1 block. Given IV amiodarone then IV diltiazem without effect. Transferred to ICU. He continues to remain in an atrial arrhythmia though HR is slower. --on Oral Amio with presistent AF. Please DC oral Amiodarone. --Continue metoprolol for rate control. --Not candidate for AC due to ICH --HR is controlled while in Aflutter. If elevated can add Cardiazem will see as needed.
[2018-12-07] MEDS ORDERED: HEPARIN NA (PORCINE) 5,000 UNITS/ML 1ML VIAL SQ SCH (22:00)
[2018-12-07] MEDS ORDERED: VANCOMYCIN 1 GRAM (PRE-DOCKED) 1,000 MG/250 ML BAG IVPB SCH (23:30)
[2018-12-08] MEDS ORDERED: ACETAMINOPHEN 325 MG TABLET (FP) PO ONE (05:25)
[2018-12-08] MEDS ORDERED: ACETAMINOPHEN 1000 MG/100 ML VIAL (NON FORMULARY) IVPB ONE (05:32)
[2018-12-08] MEDS: HEPARIN NA (PORCINE) 5,000 UNITS/ML 1ML VIAL SQ SCH ×3 (05:56→21:54)
[2018-12-08 07:25] LABS: HEMATOCRIT 29.6 % (35.4-49); HEMOGLOBIN 9.5 GM/dL (11.7-16.9); MCH 28.2 pg (25.7-33.7); MCHC 31.9 g/dl (32.0-35.9); MEAN CELL VOLUME 88.4 fl (80-96); MEAN PLT VOLUME 9.1 fl (7.5-11.1); PLATELET COUNT 300 K/MM3 (134-434); RBC 3.35 M/mm3 (4.00-5.60); WHITE BLOOD COUNT 6.6 K/mm3 (4.0-10.0)
[2018-12-08 07:48] LABS: CALCIUM 8.1 mg/dL (8.5-10.1); CREATININE 0.7 mg/dL (0.55-1.3); PHOSPHOROUS 3.3 mg/dL (2.5-4.9); POTASSIUM 3.8 mmol/L (3.5-5.1)
[2018-12-08] MEDS ORDERED: PT OWN MED DRAWER 7, Y5N ONE (09:31)
[2018-12-08] MEDS: ERTAPENEM SODIUM 1 GM in SODIUM CHLORIDE 50 ML IVPB SCH (09:34)
[2018-12-08] MEDS: METOPROLOL TARTRATE 50 MG TABLET (FP) GT SCH ×2 (09:34→21:54)
[2018-12-08] MEDS ORDERED: AMIODARONE HCL 200 MG TABLET (FP) GT SCH ×2 (10:00)
[2018-12-08] MEDS ORDERED: ERTAPENEM SODIUM 1 GM in SODIUM CHLORIDE 50 ML IVPB SCH (10:00)
--- NOTE | 2018-12-08 11:35 | PN ---
Progress Note (short form) - Note Progress Note: PULMONARY Vented, poorly responsive. Low grade fever this AM. Heart rates better controlled. Vital Signs Period Temp Pulse Resp BP Sys/Howe Pulse Ox Last 24 Hr 99.3 F-100.7 F 81-119 15-28 105-148/56-95 98-98 Gen: vented, poorly responsive Heart: RRR Lung: scattered rhonchi Abd: soft, nontender Ext: no edema, left leg contracted CBC, BMP 12/08/18 06:30 12/08/18 06:30 Active Medications Amiodarone HCl (Cordarone -) 200 mg GT DAILY [facility] Last Admin: 12/08/18 09:35 Dose: 200 mg Heparin Sodium (Porcine) (Heparin -) 5,000 unit SQ TID [facility] Last Admin: 12/08/18 05:56 Dose: 5,000 unit Ertapenem 1 gm/ Sodium (Chloride) 50 mls @ 100 mls/hr IVPB DAILY [facility] Last Admin: 12/08/18 09:34 Dose: 100 mls/hr Vancomycin HCl (Vancomycin (Pre-Docked)) 1,000 mg in 250 mls @ 166.667 mls/hr IVPB BID@1130,2330 [facility]; Protocol Metoprolol Tartrate (Lopressor -) 100 mg GT BID [facility] Last Admin: 12/08/18 09:34 Dose: 100 mg A/P Atrial Flutter with RVR Neutropenic Severe Sepsis Pneumonia Lactic Acidosis Chronic Respiratory Failure Recent Hemorrhagic Stroke - rate control - continue antibiotics - monitor urine output, creatinine - continue volume assist control - not a candidate for weaning at this time given poor mental status - enteral feeds - DVT/GI prophylaxis
[2018-12-08] MEDS: VANCOMYCIN 1 GRAM (PRE-DOCKED) 1,000 MG/250 ML BAG IVPB SCH ×2 (12:33→23:03)
--- NOTE | 2018-12-08 14:13 | PN ---
Progress Note, Physician Chief Complaint: Sepsis Afib History of Present Illness: Previous notes and events reviewed awake, NAD mechanically ventilated edema LUE low grade fever earlier this morning - Current Medication List Current Medications: Active Medications Amiodarone HCl (Cordarone -) 200 mg GT DAILY [facility] Last Admin: 12/08/18 09:35 Dose: 200 mg Heparin Sodium (Porcine) (Heparin -) 5,000 unit SQ TID [facility] Last Admin: 12/08/18 05:56 Dose: 5,000 unit Ertapenem 1 gm/ Sodium (Chloride) 50 mls @ 100 mls/hr IVPB DAILY [facility] Last Admin: 12/08/18 09:34 Dose: 100 mls/hr Vancomycin HCl (Vancomycin (Pre-Docked)) 1,000 mg in 250 mls @ 166.667 mls/hr IVPB BID@1130,2330 [facility]; Protocol Last Admin: 12/08/18 12:33 Dose: 166.667 mls/hr Metoprolol Tartrate (Lopressor -) 100 mg GT BID [facility] Last Admin: 12/08/18 09:34 Dose: 100 mg - Objective Vital Signs: Vital Signs Temperature 98.8 F 12/08/18 13:01 Pulse Rate 82 12/08/18 13:01 Respiratory Rate 20 12/08/18 13:01 Blood Pressure 91/49 L 12/08/18 13:01 O2 Sat by Pulse Oximetry (%) 99 12/08/18 11:52 Constitutional: Yes: No Distress, Calm Eyes: Yes: Conjunctiva Clear Neck: Yes: Other (trach) Cardiovascular: Yes: Regular Rate and Rhythm Respiratory: Yes: Mechanically Ventilated, Rhonchi Gastrointestinal: Yes: Normal Bowel Sounds, Soft Genitourinary: Yes: Incontinence Musculoskeletal: Yes: Muscle Weakness Edema: Yes (LUE) Neurological: Yes: Alert, Pre-Existing Deficit Psychiatric: Yes: Alert Labs: CBC, BMP 12/08/18 06:30 12/08/18 06:30 INR, PTT INR 1.17 (0.83-1.09) H 12/06/18 05:15 Microbiology 12/01/18 04:36 Blood - Peripheral Venous Blood Culture - Final NO GROWTH AFTER 5 DAYS INCUBATION 12/01/18 04:36 Blood - Peripheral Venous Blood Culture - Final NO GROWTH AFTER 5 DAYS INCUBATION 12/01/18 09:08 Sputum - Endotrachea Suction/Ventilator Gram Stain - Final 12/01/18 09:08 Sputum - Endotrachea Suction/Ventilator Sputum Culture - Final Enterobacter Cloacae Mr S Aureus Alpha Hemolytic Streptococcus Proteus Mirabilis 12/01/18 18:44 Urine - Urine Mckeon Legionella Antigen - Final 12/01/18 18:44 Urine - Urine Mckeon Streptococcus pneumoniae Antigen (M - Final 12/01/18 04:45 Urine - Urine - Catheterized Urine Culture - Final NO GROWTH OBTAINED Problem List - Problems (1) Abdominal fluid collection Assessment/Plan: -S/p IR biopsy -ID on board Code(s): R18.8 - OTHER ASCITES (2) Afib Assessment/Plan: -cardiology on board -Metoprolol BID Code(s): I48.91 - UNSPECIFIED ATRIAL FIBRILLATION (3) CVA (cerebral vascular accident) Assessment/Plan: -mechanical ventilator -dvt ppx Code(s): I63.9 - CEREBRAL INFARCTION, UNSPECIFIED (4) Neutropenic sepsis Assessment/Plan: -ID on board -no leukocytosis -IV Ertapenem and Vancomycin -Sputum culture positive -Abd/Pelvic CT scan shows large complex mass or collection in left lower pelvic /inguinal and left hip region, could represent intramuscular type of hematoma, abscess, neoplasm -Hematology on board Code(s): A41.9 - SEPSIS, UNSPECIFIED ORGANISM; D70.9 - NEUTROPENIA, UNSPECIFIED (5) History of UTI Assessment/Plan: -ID on board -IV Ertapenem and Vancomycin -no leukocytosis -UC neg Code(s): Z87.440 - PERSONAL HISTORY OF URINARY (TRACT) INFECTIONS (6) Lactic acid acidosis Assessment/Plan: -LA 2.1 Code(s): E87.2 - ACIDOSIS Assessment/Plan see problem list dvt ppx
--- NOTE | 2018-12-08 16:30 | PN ---
Progress Note (short form) - Note Progress Note: afebrile transferred to the floor Vital Signs Period Temp Pulse Resp BP Sys/Howe Pulse Ox Last 24 Hr 98.4 F-100.7 F 81-111 14-26 91-137/49-91 95-99 cor-rrr lungs decreased bs at bases abd soft,nt ext no edema +gt trach to vent CBC, BMP 12/08/18 06:30 12/08/18 06:30 Microbiology 12/01/18 04:36 Blood - Peripheral Venous Blood Culture - Final NO GROWTH AFTER 5 DAYS INCUBATION 12/01/18 04:36 Blood - Peripheral Venous Blood Culture - Final NO GROWTH AFTER 5 DAYS INCUBATION 12/01/18 09:08 Sputum - Endotrachea Suction/Ventilator Gram Stain - Final 12/01/18 09:08 Sputum - Endotrachea Suction/Ventilator Sputum Culture - Final Enterobacter Cloacae Mr S Aureus Alpha Hemolytic Streptococcus Proteus Mirabilis 12/01/18 18:44 Urine - Urine Mckeon Legionella Antigen - Final 12/01/18 18:44 Urine - Urine Mckeon Streptococcus pneumoniae Antigen (M - Final 12/01/18 04:45 Urine - Urine - Catheterized Urine Culture - Final NO GROWTH OBTAINED cxray with left pleural effusion /compressive atelectasis a/p fevers-improved ?aspiration pneumonia , s/p IR guided biopsy of mass-nondiagnostic s/p hemorrhagic CVA with craniotomy vancomycin/ertapenem day #6
[2018-12-09] MEDS: HEPARIN NA (PORCINE) 5,000 UNITS/ML 1ML VIAL SQ SCH ×3 (05:31→21:02)
[2018-12-09] MEDS ORDERED: PT OWN MED DRAWER 7, Y5N ONE (10:23)
[2018-12-09] MEDS: METOPROLOL TARTRATE 50 MG TABLET (FP) GT SCH ×2 (10:31→21:02)
[2018-12-09] MEDS: ERTAPENEM SODIUM 1 GM in SODIUM CHLORIDE 50 ML IVPB SCH (10:31)
[2018-12-09] MEDS: VANCOMYCIN 1 GRAM (PRE-DOCKED) 1,000 MG/250 ML BAG IVPB SCH ×2 (11:30→23:31)
--- NOTE | 2018-12-09 13:14 | PN ---
Progress Note (short form) - Note Progress Note: PULMONARY Vented Tmax 99.5 Gen: vented, poorly responsive Heart: RRR Lung: scattered rhonchi Abd: soft, nontender Ext: no edema, left leg contracted meds/notes/images reviewed A/P Atrial Flutter with RVR Neutropenic Severe Sepsis Pneumonia Lactic Acidosis Chronic Respiratory Failure Recent Hemorrhagic Stroke - rate control - continue antibiotics - monitor urine output, creatinine - continue volume assist control - not a candidate for weaning at this time given poor mental status - enteral feeds - DVT/GI prophylaxis Molly CA MD
--- NOTE | 2018-12-09 14:40 | PN ---
Progress Note (short form) - Note Progress Note: low grade temp transferred to the floor Vital Signs Period Temp Pulse Resp BP Sys/Howe Pulse Ox Last 24 Hr 98.0 F-99.9 F 80-88 14-24 103-130/65-84 97-98 cor-rrr llungs decreased bs at basesa abd soft,nt ext no edema CBC, BMP 12/08/18 06:30 12/08/18 06:30 Microbiology 12/01/18 04:36 Blood - Peripheral Venous Blood Culture - Final NO GROWTH AFTER 5 DAYS INCUBATION 12/01/18 04:36 Blood - Peripheral Venous Blood Culture - Final NO GROWTH AFTER 5 DAYS INCUBATION 12/01/18 09:08 Sputum - Endotrachea Suction/Ventilator Gram Stain - Final 12/01/18 09:08 Sputum - Endotrachea Suction/Ventilator Sputum Culture - Final Enterobacter Cloacae Mr S Aureus Alpha Hemolytic Streptococcus Proteus Mirabilis 12/01/18 18:44 Urine - Urine Mckeon Legionella Antigen - Final 12/01/18 18:44 Urine - Urine Mckeon Streptococcus pneumoniae Antigen (M - Final 12/01/18 04:45 Urine - Urine - Catheterized Urine Culture - Final NO GROWTH OBTAINED cxray with left pleural effusion /compressive atelectasis a/p fevers-improved ?aspiration pneumonia , s/p IR guided biopsy of mass-nondiagnostic s/p hemorrhagic CVA with craniotomy vancomycin/ertapenem day #7- consider d/c antiiboitcs next 24 -48 hours, if fevers persist repeat cxray, ?thoracentesis
--- NOTE | 2018-12-09 15:57 | PN ---
Progress Note, Physician Chief Complaint: patient vented on the floor tmax 99.9 - Current Medication List Current Medications: Active Medications Heparin Sodium (Porcine) (Heparin -) 5,000 unit SQ TID [facility] Last Admin: 12/09/18 13:20 Dose: 5,000 unit Ertapenem 1 gm/ Sodium (Chloride) 50 mls @ 100 mls/hr IVPB DAILY [facility] Last Admin: 12/09/18 10:31 Dose: 100 mls/hr Vancomycin HCl (Vancomycin (Pre-Docked)) 1,000 mg in 250 mls @ 166.667 mls/hr IVPB BID@1130,2330 [facility]; Protocol Last Admin: 12/09/18 11:30 Dose: 166.667 mls/hr Metoprolol Tartrate (Lopressor -) 100 mg GT BID [facility] Last Admin: 12/09/18 10:31 Dose: 100 mg - Objective Vital Signs: Vital Signs Temperature 99.5 F 12/09/18 14:17 Pulse Rate 86 12/09/18 14:17 Respiratory Rate 18 12/09/18 14:17 Blood Pressure 148/88 12/09/18 14:17 O2 Sat by Pulse Oximetry (%) 97 12/09/18 10:20 Constitutional: Yes: Calm Neck: Yes: Other (trach) Cardiovascular: Yes: Regular Rate and Rhythm, S1, S2 Respiratory: Yes: Mechanically Ventilated Gastrointestinal: Yes: Normal Bowel Sounds, Soft Neurological: Yes: Weakness (left side) Labs: CBC, BMP 12/08/18 06:30 12/08/18 06:30 INR, PTT INR 1.17 (0.83-1.09) H 12/06/18 05:15 Problem List - Problems (1) Lactic acid acidosis Assessment/Plan: on ertrapenem and vacnomcyin day 7 will need another 48 hr of abx then dc Code(s): E87.2 - ACIDOSIS (2) Neutropenic sepsis Assessment/Plan: absolute neutrophil count noted- wbc count improving iv abx ertrapenem and vancomycin S/p IR biopsy Code(s): A41.9 - SEPSIS, UNSPECIFIED ORGANISM; D70.9 - NEUTROPENIA, UNSPECIFIED (3) Status post CVA Assessment/Plan: s/p trach and peg dvt ppx Code(s): Z86.73 - PRSNL HX OF TIA (TIA), AND CEREB INFRC W/O RESID DEFICITS (4) Atrial flutter Assessment/Plan: metaprolol 100mg bid via g tube Code(s): I48.92 - UNSPECIFIED ATRIAL FLUTTER (5) Abdominal fluid collection Assessment/Plan: IR for biopsy Code(s): R18.8 - OTHER ASCITES (6) History of UTI Assessment/Plan: VRe in urine isolation Code(s): Z87.440 - PERSONAL HISTORY OF URINARY (TRACT) INFECTIONS (7) Electrolyte abnormality Assessment/Plan: hypokalemia- improved repleted Code(s): E87.8 - OTH DISORDERS OF ELECTROLYTE AND FLUID BALANCE, NEC (8) Pleural effusion Assessment/Plan: lasix cxr noted left sided pleural effusion Code(s): J90 - PLEURAL EFFUSION, NOT ELSEWHERE CLASSIFIED
--- NOTE | 2018-12-09 16:12 | PATH ---
Cytology Non-Gynecological Report Patient Name: KARAN LIND Med. Rec. #: [id number] /Age/Gender: 1945 (Age: 73) / M Account: [id number] Location: [address] [place] [address] Taken: 12/05/2018 Received: 12/06/2018 Reported: 12/09/2018 Physicians: Rebeca Coronado M.D. Specimen(s) Received LEFT PELVIC MASS FLUID Clinical History Left pelvic mass Final Diagnosis PELVIC MASS FLUID, LEFT, FOR CYTOLOGY: SATISFACTORY FOR EVALUATION. NO MALIGNANT CELLS IDENTIFIED. LYSED RED BLOOD CELLS, SCATTERED NEUTROPHILS, AND DEGENERATED CELLS IN AN AMORPHOUS BACKGROUND. NO EPITHELIAL CELLS IDENTIFIED. Comment: Suggest clinical and radiologic correlation. See concurrent material ([id number]). Electronically Signed Marie Olsen M.D. Gross Description Approximately 50 cc of pink fluid received fixed in 50% alcohol. One cytofunnel prepared and Pap stained. One cellblock prepared.
[2018-12-10] MEDS: HEPARIN NA (PORCINE) 5,000 UNITS/ML 1ML VIAL SQ SCH ×3 (05:48→23:14)
[2018-12-10 07:52] LABS: BASO % 0.5 % (0-2.0); EOS % 1.4 % (0-4.5); HEMATOCRIT 32.8 % (35.4-49); HEMOGLOBIN 10.4 GM/dL (11.7-16.9); LYMPH % 13.7 % (8-40); MCH 28.3 pg (25.7-33.7); MCHC 31.6 g/dl (32.0-35.9); MEAN CELL VOLUME 89.5 fl (80-96); MEAN PLT VOLUME 8.6 fl (7.5-11.1); MONO % 6.7 % (3.8-10.2); NEUT % 77.7 % (42.8-82.8); PLATELET COUNT 338 K/MM3 (134-434); RBC 3.67 M/mm3 (4.00-5.60); RDW 18.5 % (11.9-15.9); WHITE BLOOD COUNT 7.7 K/mm3 (4.0-10.0)
[2018-12-10 08:04] LABS: ALBUMIN 2.1 g/dl (3.4-5.0); BILIRUBIN,TOTAL 0.4 mg/dL (0.2-1); CALCIUM 8.7 mg/dL (8.5-10.1); CREATININE 0.6 mg/dL (0.55-1.3); POTASSIUM 3.7 mmol/L (3.5-5.1); TOT PROT 5.9 g/dl (6.4-8.2)
[2018-12-10] MEDS: METOPROLOL TARTRATE 50 MG TABLET (FP) GT SCH ×2 (09:54→23:14)
[2018-12-10] MEDS: ERTAPENEM SODIUM 1 GM in SODIUM CHLORIDE 50 ML IVPB SCH (09:54)
[2018-12-10] MEDS: VANCOMYCIN 1 GRAM (PRE-DOCKED) 1,000 MG/250 ML BAG IVPB SCH ×2 (10:51→23:14)
--- NOTE | 2018-12-10 12:07 | PN ---
Progress Note (short form) - Note Progress Note: Vented, poorly responsive. AC Mode of vent, 50% FiO2. Afebrile. Intake & Output 12/07/18 12/08/18 12/09/18 12/10/18 23:59 23:59 23:59 23:59 Intake Total 1795 2300 Output Total 300 Balance 1495 2300 Weight 154 lb 6 oz Last Vital Signs Temp Pulse Resp BP Pulse Ox 98.9 F 84 19 115/77 97 12/10/18 09:30 12/10/18 09:30 12/10/18 10:09 12/10/18 09:30 12/09/18 21:00 Active Medications Heparin Sodium (Porcine) (Heparin -) 5,000 unit SQ TID [facility] Last Admin: 12/10/18 05:48 Dose: 5,000 unit Ertapenem 1 gm/ Sodium (Chloride) 50 mls @ 100 mls/hr IVPB DAILY [facility] Last Admin: 12/10/18 09:54 Dose: 100 mls/hr Vancomycin HCl (Vancomycin (Pre-Docked)) 1,000 mg in 250 mls @ 166.667 mls/hr IVPB BID@1130,2330 [facility]; Protocol Last Admin: 12/10/18 10:51 Dose: 166.667 mls/hr Metoprolol Tartrate (Lopressor -) 100 mg GT BID [facility] Last Admin: 12/10/18 09:54 Dose: 100 mg Gen: vented, poorly responsive Heart: RRR Lung: scattered rhonchi Abd: soft, nontender Ext: no edema, left leg contracted Laboratory Results - last 24 hr 12/10/18 12/10/18 06:35 06:35 WBC 7.7 RBC 3.67 L Hgb 10.4 L Hct 32.8 L MCV 89.5 MCH 28.3 MCHC 31.6 L RDW 18.5 H Plt Count 338 MPV 8.6 Absolute Neuts (auto) 6.0 Neutrophils % 77.7 D Lymphocytes % 13.7 D Monocytes % 6.7 Eosinophils % 1.4 Basophils % 0.5 Nucleated RBC % 0 Sodium 142 Potassium 3.7 Chloride 108 H Carbon Dioxide 27 Anion Gap 7 L BUN 10 Creatinine 0.6 Est GFR (CKD-EPI)AfAm 116.42 Est GFR (CKD-EPI)NonAf 100.45 Random Glucose 121 H Calcium 8.7 Total Bilirubin 0.4 AST 16 ALT 17 Alkaline Phosphatase 176 H Total Protein 5.9 L Albumin 2.1 L A/P Atrial Flutter with RVR Neutropenic Severe Sepsis Pneumonia Lactic Acidosis Chronic Respiratory Failure Recent Hemorrhagic Stroke - rate control - continue antibiotics - monitor urine output, creatinine - continue volume assist control - not a candidate for weaning at this time given poor mental status - enteral feeds - DVT/GI prophylaxis Dr Mahajan
--- NOTE | 2018-12-10 15:36 | PN ---
Progress Note, Physician Chief Complaint: Sepsis Afib History of Present Illness: Previous notes and events reviewed awake NAD mechanically ventilated no leukocytosis - Current Medication List Current Medications: Active Medications Bacitracin (Bacitracin -) 1 applic TP DAILY [facility] Heparin Sodium (Porcine) (Heparin -) 5,000 unit SQ TID [facility] Last Admin: 12/10/18 14:07 Dose: 5,000 unit Ertapenem 1 gm/ Sodium (Chloride) 50 mls @ 100 mls/hr IVPB DAILY [facility] Last Admin: 12/10/18 09:54 Dose: 100 mls/hr Vancomycin HCl (Vancomycin (Pre-Docked)) 1,000 mg in 250 mls @ 166.667 mls/hr IVPB BID@1130,2330 [facility]; Protocol Last Admin: 12/10/18 10:51 Dose: 166.667 mls/hr Metoprolol Tartrate (Lopressor -) 100 mg GT BID [facility] Last Admin: 12/10/18 09:54 Dose: 100 mg - Objective Vital Signs: Vital Signs Temperature 99.3 F 12/10/18 13:02 Pulse Rate 84 12/10/18 13:02 Respiratory Rate 22 H 12/10/18 14:40 Blood Pressure 107/68 12/10/18 13:02 O2 Sat by Pulse Oximetry (%) 97 12/09/18 21:00 Constitutional: Yes: No Distress, Calm Eyes: Yes: Conjunctiva Clear Neck: Yes: Other (trach) Cardiovascular: Yes: Regular Rate and Rhythm Respiratory: Yes: Regular, CTA Bilaterally Gastrointestinal: Yes: Normal Bowel Sounds, Soft ...Rectal Exam: Yes: Other (rectal tube) Musculoskeletal: Yes: Muscle Weakness Extremities: Yes: Other (LLE contracture) Edema: No Neurological: Yes: Alert, Pre-Existing Deficit Psychiatric: Yes: Alert Labs: CBC, BMP 12/10/18 06:35 12/10/18 06:35 INR, PTT INR 1.17 (0.83-1.09) H 12/06/18 05:15 - ....Imaging Ultrasound: Report Reviewed Problem List - Problems (1) Abdominal fluid collection Assessment/Plan: -S/p IR biopsy -ID on board Code(s): R18.8 - OTHER ASCITES (2) Afib Assessment/Plan: -cardiology on board -Metoprolol BID Code(s): I48.91 - UNSPECIFIED ATRIAL FIBRILLATION (3) CVA (cerebral vascular accident) Assessment/Plan: -mechanical ventilator -dvt ppx Code(s): I63.9 - CEREBRAL INFARCTION, UNSPECIFIED (4) Neutropenic sepsis Assessment/Plan: -ID on board -no leukocytosis -IV Ertapenem and Vancomycin--consider d/c ABT in next 48 hrs -Sputum culture positive -Abd/Pelvic CT scan shows large complex mass or collection in left lower pelvic /inguinal and left hip region, could represent intramuscular type of hematoma, abscess, neoplasm -Hematology on board Code(s): A41.9 - SEPSIS, UNSPECIFIED ORGANISM; D70.9 - NEUTROPENIA, UNSPECIFIED (5) History of UTI Assessment/Plan: -ID on board -IV Ertapenem and Vancomycin -no leukocytosis -UC neg Code(s): Z87.440 - PERSONAL HISTORY OF URINARY (TRACT) INFECTIONS (6) Lactic acid acidosis Assessment/Plan: -LA 2.1 Code(s): E87.2 - ACIDOSIS Assessment/Plan see problem list dvt ppx
--- NOTE | 2018-12-10 19:19 | PN ---
Progress Note, Physician History of Present Illness: AWAKE, ALERT NO ACUTE DISTRESS AFEBRILE - Current Medication List Current Medications: Active Medications Bacitracin (Bacitracin -) 1 applic TP DAILY [facility] Heparin Sodium (Porcine) (Heparin -) 5,000 unit SQ TID [facility] Last Admin: 12/10/18 14:07 Dose: 5,000 unit Ertapenem 1 gm/ Sodium (Chloride) 50 mls @ 100 mls/hr IVPB DAILY [facility] Last Admin: 12/10/18 09:54 Dose: 100 mls/hr Vancomycin HCl (Vancomycin (Pre-Docked)) 1,000 mg in 250 mls @ 166.667 mls/hr IVPB BID@1130,2330 [facility]; Protocol Last Admin: 12/10/18 10:51 Dose: 166.667 mls/hr Metoprolol Tartrate (Lopressor -) 100 mg GT BID [facility] Last Admin: 12/10/18 09:54 Dose: 100 mg - Objective Vital Signs: Vital Signs Temperature 98.2 F 12/10/18 18:00 Pulse Rate 88 12/10/18 18:00 Respiratory Rate 17 12/10/18 18:48 Blood Pressure 119/62 12/10/18 18:00 O2 Sat by Pulse Oximetry (%) 97 12/09/18 21:00 Constitutional: Yes: No Distress Eyes: Yes: Conjunctiva Clear Cardiovascular: Yes: Regular Rate and Rhythm, S1, S2 Respiratory: Yes: CTA Bilaterally Gastrointestinal: Yes: Normal Bowel Sounds, Soft Labs: CBC, BMP 12/10/18 06:35 12/10/18 06:35 INR, PTT INR 1.17 (0.83-1.09) H 12/06/18 05:15 Assessment/Plan PROBABLE ASPIRATION PNEUMONIA S/P HEMORRHAGIC CVA CONTINUE ERTAPENEM/VANCOMYCIN
[2018-12-11] MEDS: HEPARIN NA (PORCINE) 5,000 UNITS/ML 1ML VIAL SQ SCH ×3 (05:28→23:14)
[2018-12-11 07:57] LABS: HEMATOCRIT 34.7 % (35.4-49); HEMOGLOBIN 10.9 GM/dL (11.7-16.9); MCH 28.6 pg (25.7-33.7); MCHC 31.5 g/dl (32.0-35.9); MEAN CELL VOLUME 90.6 fl (80-96); MEAN PLT VOLUME 8.9 fl (7.5-11.1); PLATELET COUNT 338 K/MM3 (134-434); RBC 3.83 M/mm3 (4.00-5.60); RDW 18.8 % (11.9-15.9); WHITE BLOOD COUNT 8.1 K/mm3 (4.0-10.0)
[2018-12-11 08:28] LABS: ALBUMIN 2.4 g/dl (3.4-5.0); BILIRUBIN,TOTAL 0.4 mg/dL (0.2-1); CALCIUM 8.7 mg/dL (8.5-10.1); CREATININE 0.6 mg/dL (0.55-1.3); POTASSIUM 3.8 mmol/L (3.5-5.1); TOT PROT 6.5 g/dl (6.4-8.2)
[2018-12-11] MEDS: BACITRACIN 15 GM TUBE TOPICAL OINTMENT TP SCH (10:26)
[2018-12-11] MEDS: ERTAPENEM SODIUM 1 GM in SODIUM CHLORIDE 50 ML IVPB SCH (10:26)
[2018-12-11] MEDS: METOPROLOL TARTRATE 50 MG TABLET (FP) GT SCH ×2 (10:29→23:14)
[2018-12-11] MEDS: VANCOMYCIN 1 GRAM (PRE-DOCKED) 1,000 MG/250 ML BAG IVPB SCH ×2 (10:29→23:14)
--- NOTE | 2018-12-11 11:10 | PN ---
Progress Note (short form) - Note Progress Note: Remains vented and poorly responsive. AC Mode of vent, 50% FiO2. Afebrile. Intake & Output 12/08/18 12/09/18 12/10/18 12/11/18 23:59 23:59 23:59 23:59 Intake Total 2300 1025 Balance 2300 1025 Last Vital Signs Temp Pulse Resp BP Pulse Ox 99.0 F 118 H 25 H 126/84 98 12/11/18 10:00 12/11/18 10:00 12/11/18 10:17 12/11/18 10:00 12/10/18 21:00 Active Medications Bacitracin (Bacitracin -) 1 applic TP DAILY [facility] Last Admin: 12/11/18 10:26 Dose: 1 applic Heparin Sodium (Porcine) (Heparin -) 5,000 unit SQ TID [facility] Last Admin: 12/11/18 05:28 Dose: 5,000 unit Ertapenem 1 gm/ Sodium (Chloride) 50 mls @ 100 mls/hr IVPB DAILY [facility] Last Admin: 12/11/18 10:26 Dose: 100 mls/hr Vancomycin HCl (Vancomycin (Pre-Docked)) 1,000 mg in 250 mls @ 166.667 mls/hr IVPB BID@1130,2330 [facility]; Protocol Last Admin: 12/11/18 10:29 Dose: 166.667 mls/hr Metoprolol Tartrate (Lopressor -) 100 mg GT BID [facility] Last Admin: 12/11/18 10:29 Dose: 100 mg Gen: vented, poorly responsive Heart: RRR Lung: scattered rhonchi Abd: soft, nontender Ext: no edema, left leg contracted Laboratory Results - last 24 hr 12/11/18 12/11/18 07:15 07:15 WBC 8.1 RBC 3.83 L Hgb 10.9 L Hct 34.7 L MCV 90.6 MCH 28.6 MCHC 31.5 L RDW 18.8 H Plt Count 338 MPV 8.9 Sodium 144 Potassium 3.8 Chloride 108 H Carbon Dioxide 29 Anion Gap 7 L BUN 10 Creatinine 0.6 Est GFR (CKD-EPI)AfAm 116.42 Est GFR (CKD-EPI)NonAf 100.45 Random Glucose 110 H Calcium 8.7 Total Bilirubin 0.4 AST 19 ALT 20 Alkaline Phosphatase 185 H Total Protein 6.5 Albumin 2.4 L A/P Atrial Flutter with RVR Neutropenic Severe Sepsis Pneumonia Lactic Acidosis Chronic Respiratory Failure Recent Hemorrhagic Stroke - rate control - continue antibiotics - monitor urine output, creatinine - continue volume assist control - not a candidate for weaning at this time given poor mental status - enteral feeds - DVT/GI prophylaxis Dr Mahajan
--- NOTE | 2018-12-11 12:29 | PN ---
Progress Note, Physician Chief Complaint: Sepsis Afib History of Present Illness: Previous notes and events reviewed awake NAD mechanically ventilated no leukocytosis - Current Medication List Current Medications: Active Medications Bacitracin (Bacitracin -) 1 applic TP DAILY [facility] Last Admin: 12/11/18 10:26 Dose: 1 applic Heparin Sodium (Porcine) (Heparin -) 5,000 unit SQ TID [facility] Last Admin: 12/11/18 05:28 Dose: 5,000 unit Ertapenem 1 gm/ Sodium (Chloride) 50 mls @ 100 mls/hr IVPB DAILY [facility] Last Admin: 12/11/18 10:26 Dose: 100 mls/hr Vancomycin HCl (Vancomycin (Pre-Docked)) 1,000 mg in 250 mls @ 166.667 mls/hr IVPB BID@1130,2330 [facility]; Protocol Last Admin: 12/11/18 10:29 Dose: 166.667 mls/hr Metoprolol Tartrate (Lopressor -) 100 mg GT BID [facility] Last Admin: 12/11/18 10:29 Dose: 100 mg - Objective Vital Signs: Vital Signs Temperature 99.0 F 12/11/18 10:00 Pulse Rate 118 H 12/11/18 10:00 Respiratory Rate 25 H 12/11/18 10:17 Blood Pressure 126/84 12/11/18 10:00 O2 Sat by Pulse Oximetry (%) 98 12/10/18 21:00 Constitutional: Yes: No Distress Eyes: Yes: Conjunctiva Clear HENT: Yes: Atraumatic Neck: Yes: Other (trach) Cardiovascular: Yes: Tachycardia Respiratory: Yes: Mechanically Ventilated, Rhonchi Gastrointestinal: Yes: Normal Bowel Sounds, Soft, Other (PEG) ...Rectal Exam: Yes: Other (rectal tube) Genitourinary: Yes: Incontinence Musculoskeletal: Yes: Muscle Weakness Extremities: Yes: WNL Edema: No Neurological: Yes: Alert, Pre-Existing Deficit Labs: CBC, BMP 12/11/18 07:15 12/11/18 07:15 INR, PTT INR 1.17 (0.83-1.09) H 12/06/18 05:15 Problem List - Problems (1) Abdominal fluid collection Assessment/Plan: -S/p IR biopsy -ID on board Code(s): R18.8 - OTHER ASCITES (2) Afib Assessment/Plan: -cardiology on board -Metoprolol BID Code(s): I48.91 - UNSPECIFIED ATRIAL FIBRILLATION (3) CVA (cerebral vascular accident) Assessment/Plan: -mechanical ventilator -dvt ppx Code(s): I63.9 - CEREBRAL INFARCTION, UNSPECIFIED (4) Neutropenic sepsis Assessment/Plan: -ID on board -no leukocytosis -IV Ertapenem and Vancomycin -Sputum culture positive -Abd/Pelvic CT scan shows large complex mass or collection in left lower pelvic /inguinal and left hip region, could represent intramuscular type of hematoma, abscess, neoplasm -Hematology on board Code(s): A41.9 - SEPSIS, UNSPECIFIED ORGANISM; D70.9 - NEUTROPENIA, UNSPECIFIED (5) History of UTI Assessment/Plan: -ID on board -IV Ertapenem and Vancomycin -no leukocytosis -UC neg Code(s): Z87.440 - PERSONAL HISTORY OF URINARY (TRACT) INFECTIONS (6) Lactic acid acidosis Assessment/Plan: -LA 2.1 Code(s): E87.2 - ACIDOSIS Assessment/Plan see problem list dvt ppx
--- NOTE | 2018-12-11 16:19 | PN ---
Progress Note, Physician History of Present Illness: AWAKE, ALERT NO ACUTE DISTRESS AFEBRILE - Current Medication List Current Medications: Active Medications Bacitracin (Bacitracin -) 1 applic TP DAILY [facility] Last Admin: 12/11/18 10:26 Dose: 1 applic Heparin Sodium (Porcine) (Heparin -) 5,000 unit SQ TID [facility] Last Admin: 12/11/18 13:24 Dose: 5,000 unit Ertapenem 1 gm/ Sodium (Chloride) 50 mls @ 100 mls/hr IVPB DAILY [facility] Last Admin: 12/11/18 10:26 Dose: 100 mls/hr Vancomycin HCl (Vancomycin (Pre-Docked)) 1,000 mg in 250 mls @ 166.667 mls/hr IVPB BID@1130,2330 [facility]; Protocol Last Admin: 12/11/18 10:29 Dose: 166.667 mls/hr Metoprolol Tartrate (Lopressor -) 100 mg GT BID [facility] Last Admin: 12/11/18 10:29 Dose: 100 mg - Objective Vital Signs: Vital Signs Temperature 99.1 F 12/11/18 12:51 Pulse Rate 113 H 12/11/18 12:51 Respiratory Rate 21 H 12/11/18 14:23 Blood Pressure 120/82 12/11/18 12:51 O2 Sat by Pulse Oximetry (%) 95 12/11/18 09:00 Cardiovascular: Yes: Regular Rate and Rhythm, S1, S2 Respiratory: Yes: CTA Bilaterally Gastrointestinal: Yes: Normal Bowel Sounds, Soft Edema: No Labs: CBC, BMP 12/11/18 07:15 12/11/18 07:15 INR, PTT INR 1.17 (0.83-1.09) H 12/06/18 05:15 Assessment/Plan PROBABLE ASPIRATION PNEUMONIA S/P HEMORRHAGIC CVA CONTINUE ERTAPENEM/VANCOMYCIN
[2018-12-12] MEDS: HEPARIN NA (PORCINE) 5,000 UNITS/ML 1ML VIAL SQ SCH ×3 (06:38→23:43)
[2018-12-12 07:56] LABS: ALBUMIN 2.4 g/dl (3.4-5.0); BILIRUBIN,TOTAL 0.6 mg/dL (0.2-1); CREATININE 0.6 mg/dL (0.55-1.3); POTASSIUM 3.7 mmol/L (3.5-5.1); TOT PROT 6.7 g/dl (6.4-8.2)
[2018-12-12 08:01] LABS: HEMATOCRIT 34.6 % (35.4-49); HEMOGLOBIN 10.9 GM/dL (11.7-16.9); MCH 28.3 pg (25.7-33.7); MCHC 31.5 g/dl (32.0-35.9); MEAN CELL VOLUME 89.6 fl (80-96); MEAN PLT VOLUME 8.7 fl (7.5-11.1); PLATELET COUNT 370 K/MM3 (134-434); RBC 3.86 M/mm3 (4.00-5.60)
--- NOTE | 2018-12-12 09:44 | PN ---
Progress Note, Physician History of Present Illness: MORE AWAKE, ALERT NO ACUTE DISTRESS AFEBRILE - Current Medication List Current Medications: Active Medications Bacitracin (Bacitracin -) 1 applic TP DAILY [facility] Last Admin: 12/11/18 10:26 Dose: 1 applic Heparin Sodium (Porcine) (Heparin -) 5,000 unit SQ TID [facility] Last Admin: 12/12/18 06:38 Dose: 5,000 unit Ertapenem 1 gm/ Sodium (Chloride) 50 mls @ 100 mls/hr IVPB DAILY [facility] Last Admin: 12/11/18 10:26 Dose: 100 mls/hr Vancomycin HCl (Vancomycin (Pre-Docked)) 1,000 mg in 250 mls @ 166.667 mls/hr IVPB BID@1130,2330 [facility]; Protocol Last Admin: 12/11/18 23:14 Dose: 166.667 mls/hr Metoprolol Tartrate (Lopressor -) 100 mg GT BID [facility] Last Admin: 12/11/18 23:14 Dose: 100 mg - Objective Vital Signs: Vital Signs Temperature 98.5 F 12/12/18 06:00 Pulse Rate 112 H 12/12/18 06:00 Respiratory Rate 18 12/12/18 06:00 Blood Pressure 116/80 12/12/18 06:00 O2 Sat by Pulse Oximetry (%) 95 12/11/18 21:00 Constitutional: Yes: No Distress Eyes: Yes: Conjunctiva Clear Cardiovascular: Yes: Regular Rate and Rhythm Respiratory: Yes: CTA Bilaterally Gastrointestinal: Yes: Normal Bowel Sounds, Soft. No: Tenderness Edema: No Labs: CBC, BMP 12/12/18 06:30 12/12/18 06:30 INR, PTT INR 1.17 (0.83-1.09) H 12/06/18 05:15 Assessment/Plan PROBABLE ASPIRATION PNEUMONIA S/P HEMORRHAGIC CVA CONTINUE ERTAPENEM/VANCOMYCIN
--- NOTE | 2018-12-12 10:33 | PN ---
Progress Note, Physician History of Present Illness: PULMONARY AWAKE,POORLY RESPONSIVE ON VENT SUPPORT AC MODE - Current Medication List Current Medications: Active Medications Bacitracin (Bacitracin -) 1 applic TP DAILY [facility] Last Admin: 12/11/18 10:26 Dose: 1 applic Heparin Sodium (Porcine) (Heparin -) 5,000 unit SQ TID [facility] Last Admin: 12/12/18 06:38 Dose: 5,000 unit Ertapenem 1 gm/ Sodium (Chloride) 50 mls @ 100 mls/hr IVPB DAILY [facility] Last Admin: 12/11/18 10:26 Dose: 100 mls/hr Vancomycin HCl (Vancomycin (Pre-Docked)) 1,000 mg in 250 mls @ 166.667 mls/hr IVPB BID@1130,2330 [facility]; Protocol Last Admin: 12/11/18 23:14 Dose: 166.667 mls/hr Metoprolol Tartrate (Lopressor -) 100 mg GT BID [facility] Last Admin: 12/11/18 23:14 Dose: 100 mg - Objective Vital Signs: Vital Signs Temperature 98.6 F 12/12/18 10:00 Pulse Rate 93 H 12/12/18 10:10 Respiratory Rate 20 12/12/18 10:10 Blood Pressure 116/64 12/12/18 10:00 O2 Sat by Pulse Oximetry (%) 96 12/12/18 10:10 Constitutional: Yes: Calm, Thin Eyes: Yes: WNL HENT: Yes: WNL Neck: Yes: Supple (TRACH) Cardiovascular: Yes: Regular Rate and Rhythm, S1, S2 Respiratory: Yes: Other (FEW RHONCHI) Gastrointestinal: Yes: Normal Bowel Sounds, Soft Extremities: Yes: Other (L LEG CONTRACTED) Edema: No Labs: CBC, BMP 12/12/18 06:30 12/12/18 06:30 INR, PTT INR 1.17 (0.83-1.09) H 12/06/18 05:15 Problem List - Problems (1) Chronic respiratory failure Code(s): J96.10 - CHRONIC RESPIRATORY FAILURE, UNSP W HYPOXIA OR HYPERCAPNIA (2) Afib Code(s): I48.91 - UNSPECIFIED ATRIAL FIBRILLATION (3) Atrial flutter Code(s): I48.92 - UNSPECIFIED ATRIAL FLUTTER (4) CVA (cerebral vascular accident) Code(s): I63.9 - CEREBRAL INFARCTION, UNSPECIFIED (5) Neutropenic sepsis Code(s): A41.9 - SEPSIS, UNSPECIFIED ORGANISM; D70.9 - NEUTROPENIA, UNSPECIFIED Assessment/Plan Atrial Flutter with RVR Neutropenic Severe Sepsis Pneumonia Lactic Acidosis Chronic Respiratory Failure Recent Hemorrhagic Stroke - rate control - continue antibiotics - monitor urine output, creatinine - continue volume assist control - not a candidate for weaning at this time given poor mental status - enteral feeds - DVT/GI prophylaxis DR BROWN
[2018-12-12] MEDS: BACITRACIN 15 GM TUBE TOPICAL OINTMENT TP SCH (10:36)
[2018-12-12] MEDS: ERTAPENEM SODIUM 1 GM in SODIUM CHLORIDE 50 ML IVPB SCH (10:36)
[2018-12-12] MEDS: METOPROLOL TARTRATE 50 MG TABLET (FP) GT SCH ×2 (10:38→23:40)
[2018-12-12] MEDS: VANCOMYCIN 1 GRAM (PRE-DOCKED) 1,000 MG/250 ML BAG IVPB SCH ×2 (11:15→23:40)
--- NOTE | 2018-12-12 14:05 | PN ---
Progress Note, Physician Chief Complaint: Sepsis Afib History of Present Illness: Previous notes and events reviewed awake NAD mechanically ventilated no leukocytosis - Current Medication List Current Medications: Active Medications Bacitracin (Bacitracin -) 1 applic TP DAILY [facility] Last Admin: 12/12/18 10:36 Dose: 1 applic Heparin Sodium (Porcine) (Heparin -) 5,000 unit SQ TID [facility] Last Admin: 12/12/18 13:19 Dose: 5,000 unit Ertapenem 1 gm/ Sodium (Chloride) 50 mls @ 100 mls/hr IVPB DAILY [facility] Last Admin: 12/12/18 10:36 Dose: 100 mls/hr Vancomycin HCl (Vancomycin (Pre-Docked)) 1,000 mg in 250 mls @ 166.667 mls/hr IVPB BID@1130,2330 [facility]; Protocol Last Admin: 12/12/18 11:15 Dose: 166.667 mls/hr Metoprolol Tartrate (Lopressor -) 100 mg GT BID [facility] Last Admin: 12/12/18 10:38 Dose: 100 mg - Objective Vital Signs: Vital Signs Temperature 98.6 F 12/12/18 10:00 Pulse Rate 93 H 12/12/18 10:10 Respiratory Rate 20 12/12/18 10:10 Blood Pressure 116/64 12/12/18 10:00 O2 Sat by Pulse Oximetry (%) 96 12/12/18 10:10 Constitutional: Yes: No Distress, Calm Eyes: Yes: Conjunctiva Clear HENT: Yes: Atraumatic Cardiovascular: Yes: Regular Rate and Rhythm Respiratory: Yes: Diminished, Mechanically Ventilated Gastrointestinal: Yes: Normal Bowel Sounds, Soft, Other (PEG tube) Genitourinary: Yes: Incontinence Musculoskeletal: Yes: Muscle Weakness Extremities: Yes: WNL Edema: No Neurological: Yes: Alert, Pre-Existing Deficit Psychiatric: Yes: Alert Labs: CBC, BMP 12/12/18 06:30 12/12/18 06:30 INR, PTT INR 1.17 (0.83-1.09) H 12/06/18 05:15 Problem List - Problems (1) Abdominal fluid collection Assessment/Plan: -S/p IR biopsy -ID on board Code(s): R18.8 - OTHER ASCITES (2) Afib Assessment/Plan: -cardiology on board -Metoprolol BID Code(s): I48.91 - UNSPECIFIED ATRIAL FIBRILLATION (3) CVA (cerebral vascular accident) Assessment/Plan: -mechanical ventilator -dvt ppx Code(s): I63.9 - CEREBRAL INFARCTION, UNSPECIFIED (4) Neutropenic sepsis Assessment/Plan: -ID on board -2/2 aspiration PNA -no leukocytosis -IV Ertapenem and Vancomycin -Sputum culture positive -Abd/Pelvic CT scan shows large complex mass or collection in left lower pelvic /inguinal and left hip region, could represent intramuscular type of hematoma, abscess, neoplasm -Hematology on board Code(s): A41.9 - SEPSIS, UNSPECIFIED ORGANISM; D70.9 - NEUTROPENIA, UNSPECIFIED (5) History of UTI Assessment/Plan: -ID on board -IV Ertapenem and Vancomycin -no leukocytosis -UC neg Code(s): Z87.440 - PERSONAL HISTORY OF URINARY (TRACT) INFECTIONS (6) Lactic acid acidosis Assessment/Plan: -LA 2.1 Code(s): E87.2 - ACIDOSIS Assessment/Plan see problem list dvt ppx
[2018-12-13 08:35] LABS: HEMOGLOBIN 10.1 GM/dL (11.7-16.9); MCH 28.3 pg (25.7-33.7); MCHC 31.6 g/dl (32.0-35.9); MEAN CELL VOLUME 89.7 fl (80-96); MEAN PLT VOLUME 9.6 fl (7.5-11.1); PLATELET COUNT 253 K/MM3 (134-434); RBC 3.57 M/mm3 (4.00-5.60); RDW 18.7 % (11.9-15.9); WHITE BLOOD COUNT 8.6 K/mm3 (4.0-10.0)
[2018-12-13] MEDS: HEPARIN NA (PORCINE) 5,000 UNITS/ML 1ML VIAL SQ SCH ×3 (08:55→22:07)
[2018-12-13] MEDS: METOPROLOL TARTRATE 50 MG TABLET (FP) GT SCH ×2 (09:01→22:07)
[2018-12-13] MEDS: BACITRACIN 15 GM TUBE TOPICAL OINTMENT TP SCH (09:02)
[2018-12-13 09:25] LABS: CALCIUM 8.5 mg/dL (8.5-10.1); CREATININE 0.6 mg/dL (0.55-1.3); POTASSIUM 3.8 mmol/L (3.5-5.1); TOT PROT 5.9 g/dl (6.4-8.2)
[2018-12-13 09:26] LABS: ALBUMIN 2.2 g/dl (3.4-5.0); BILIRUBIN,TOTAL 0.5 mg/dL (0.2-1)
--- NOTE | 2018-12-13 09:51 | CON.GI ---
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) Cardio/Vascular: Yes: HTN Pulmonary: Yes: Other (trached, chronically vent dependent) Gastrointestinal: Yes: Other (s/p PEG) Renal/: Yes: BPH - Past Surgical History Additional Surgical History: PEG tube placement, Craniotomy - Alcohol/Substance Use Hx Alcohol Use: Yes (STOPPED 10 YEASR AGO) - Smoking History Smoking history: Unknown if ever smoked Have you smoked in the past 12 months: Yes Aproximately how many cigarettes per day: 1 If you are a former smoker, when did you quit?: 8 MONTHS AGO - Social History Usual Living Arrangement: Group Home Home Medications - Allergies Allergies/Adverse Reactions: Allergies Allergy/AdvReac Type Severity Reaction Status Date / Time No Known Allergies Allergy Verified 12/01/18 04:48 - Home Medications Home Medications: Ambulatory Orders Acetaminophen [Tylenol] 325 mg GT Q8H PRN 12/07/18 Amlodipine Besylate 10 mg GT DAILY 12/07/18 Collagenase Clostridium Hist. [Santyl] 1 applic TP DAILY 12/07/18 Docusate Liquid [Colace Liquid -] 50 mg GT DAILY 12/07/18 Famotidine 10 mg GT DAILY 12/07/18 Finasteride 5 mg GT DAILY 12/07/18 Insulin Lispro [Humalog Kwikpen U-100] See Protocol SQ QID 12/07/18 LORazepam [Ativan Injection -] 2 mg IM Q6H PRN 12/07/18 Metoprolol Tartrate 100 mg GT BID 12/07/18 Multivitamins [Tab-A-Vit -] 1 tab GT DAILY 12/07/18 Rosuvastatin Calcium [Crestor] 20 mg GT HS 12/07/18 Sennosides [Senna] 8.6 mg GT DAILY 12/07/18 Thiamine Mononitrate [Vitamin B-1] 100 mg GT DAILY 12/07/18 Physical Exam-GI Vital Signs: Vital Signs Temperature 99.2 F 12/13/18 06:00 Pulse Rate 90 12/13/18 06:00 Respiratory Rate 14 12/13/18 06:00 Blood Pressure 107/65 12/13/18 06:00 O2 Sat by Pulse Oximetry (%) 98 12/13/18 06:00 Labs: CBC, BMP 12/13/18 07:15 12/13/18 07:15 INR, PTT INR 1.17 (0.83-1.09) H 12/06/18 05:15
[2018-12-13] MEDS: ERTAPENEM SODIUM 1 GM in SODIUM CHLORIDE 50 ML IVPB SCH (10:25)
[2018-12-13] MEDS: VANCOMYCIN 1 GRAM (PRE-DOCKED) 1,000 MG/250 ML BAG IVPB SCH (10:56)
--- NOTE | 2018-12-13 11:06 | PN ---
Progress Note (short form) - Note Progress Note: Remains vented and poorly responsive. AC Mode of vent, 50% FiO2. Afebrile. Intake & Output 12/10/18 12/11/18 12/12/18 12/13/18 23:59 23:59 23:59 23:59 Intake Total 1025 5 262 Balance 1025 1934 262 Last Vital Signs Temp Pulse Resp BP Pulse Ox 98.5 F 84 22 H 105/70 96 12/13/18 10:00 12/13/18 10:02 12/13/18 10:02 12/13/18 10:00 12/13/18 10:02 Active Medications Bacitracin (Bacitracin -) 1 applic TP DAILY [facility] Last Admin: 12/13/18 09:02 Dose: 1 applic Heparin Sodium (Porcine) (Heparin -) 5,000 unit SQ TID [facility] Last Admin: 12/13/18 08:55 Dose: 5,000 unit Ertapenem 1 gm/ Sodium (Chloride) 50 mls @ 100 mls/hr IVPB DAILY [facility] Last Admin: 12/13/18 10:25 Dose: 100 mls/hr Vancomycin HCl (Vancomycin (Pre-Docked)) 1,000 mg in 250 mls @ 166.667 mls/hr IVPB BID@1130,2330 [facility]; Protocol Last Admin: 12/13/18 10:56 Dose: 166.667 mls/hr Metoprolol Tartrate (Lopressor -) 100 mg GT BID [facility] Last Admin: 12/13/18 09:01 Dose: 100 mg Gen: vented, poorly responsive Heart: RRR Lung: scattered rhonchi Abd: soft, nontender Ext: no edema, left leg contracted Laboratory Results - last 24 hr 12/13/18 12/13/18 07:15 07:15 WBC 8.6 RBC 3.57 L Hgb 10.1 L Hct 32.0 L MCV 89.7 MCH 28.3 MCHC 31.6 L RDW 18.7 H Plt Count 253 D MPV 9.6 D Platelet Comment Large platelets Sodium 144 Potassium 3.8 Chloride 110 H Carbon Dioxide 26 Anion Gap 8 BUN 13 Creatinine 0.6 Est GFR (CKD-EPI)AfAm 116.42 Est GFR (CKD-EPI)NonAf 100.45 Random Glucose 104 Calcium 8.5 Total Bilirubin 0.5 AST 20 ALT 19 Alkaline Phosphatase 163 H Total Protein 5.9 L Albumin 2.2 L A/P Atrial Flutter with RVR Neutropenic Severe Sepsis Pneumonia Lactic Acidosis Chronic Respiratory Failure Recent Hemorrhagic Stroke - rate control - ABX per ID - continue volume assist control - not a candidate for weaning at this time given poor mental status - enteral feeds - DVT/GI prophylaxis Dr Mahajan
--- NOTE | 2018-12-13 11:20 | PN ---
Progress Note, Physician Chief Complaint: Sepsis Afib History of Present Illness: NAD Still on IV abx Mech vent Micro: Microbiology 12/01/18 04:36 Blood - Peripheral Venous Blood Culture - Final NO GROWTH AFTER 5 DAYS INCUBATION 12/01/18 04:36 Blood - Peripheral Venous Blood Culture - Final NO GROWTH AFTER 5 DAYS INCUBATION 12/01/18 09:08 Sputum - Endotrachea Suction/Ventilator Gram Stain - Final 12/01/18 09:08 Sputum - Endotrachea Suction/Ventilator Sputum Culture - Final Enterobacter Cloacae Mr S Aureus Alpha Hemolytic Streptococcus Proteus Mirabilis 12/01/18 18:44 Urine - Urine Mckeon Legionella Antigen - Final 12/01/18 18:44 Urine - Urine Mckeon Streptococcus pneumoniae Antigen (M - Final 12/01/18 04:45 Urine - Urine - Catheterized Urine Culture - Final NO GROWTH OBTAINED - Current Medication List Current Medications: Active Medications Bacitracin (Bacitracin -) 1 applic TP DAILY [facility] Last Admin: 12/13/18 09:02 Dose: 1 applic Heparin Sodium (Porcine) (Heparin -) 5,000 unit SQ TID [facility] Last Admin: 12/13/18 08:55 Dose: 5,000 unit Ertapenem 1 gm/ Sodium (Chloride) 50 mls @ 100 mls/hr IVPB DAILY [facility] Last Admin: 12/13/18 10:25 Dose: 100 mls/hr Vancomycin HCl (Vancomycin (Pre-Docked)) 1,000 mg in 250 mls @ 166.667 mls/hr IVPB BID@1130,2330 [facility]; Protocol Last Admin: 12/13/18 10:56 Dose: 166.667 mls/hr Metoprolol Tartrate (Lopressor -) 100 mg GT BID [facility] Last Admin: 12/13/18 09:01 Dose: 100 mg - Objective Vital Signs: Vital Signs Temperature 98.5 F 12/13/18 10:00 Pulse Rate 84 12/13/18 10:02 Respiratory Rate 22 H 12/13/18 10:02 Blood Pressure 105/70 12/13/18 10:00 O2 Sat by Pulse Oximetry (%) 96 12/13/18 10:02 Constitutional: Yes: Well Nourished, No Distress, Calm Cardiovascular: Yes: Regular Rate and Rhythm Respiratory: Yes: Mechanically Ventilated Gastrointestinal: Yes: Normal Bowel Sounds, Soft Musculoskeletal: Yes: WNL Extremities: Yes: WNL Edema: No Peripheral Pulses WNL: Yes Neurological: Yes: Pre-Existing Deficit Labs: CBC, BMP 12/13/18 07:15 12/13/18 07:15 INR, PTT INR 1.17 (0.83-1.09) H 12/06/18 05:15 Assessment/Plan (1) Abdominal fluid collection Assessment/Plan: -S/p IR biopsy -Pathology negative for malignancy -ID on board Code(s): R18.8 - OTHER ASCITES (2) Afib Assessment/Plan: -cardiology on board -Metoprolol BID Code(s): I48.91 - UNSPECIFIED ATRIAL FIBRILLATION (3) CVA (cerebral vascular accident) Assessment/Plan: -mechanical ventilator -dvt ppx Code(s): I63.9 - CEREBRAL INFARCTION, UNSPECIFIED (4) Neutropenic sepsis Assessment/Plan: -ID on board -08/20 aspiration PNA -no leukocytosis -IV Ertapenem and Vancomycin -Sputum culture positive -Abd/Pelvic CT scan shows large complex mass or collection in left lower pelvic /inguinal and left hip region, could represent intramuscular type of hematoma, abscess, neoplasm -Hematology on board -afebrile Code(s): A41.9 - SEPSIS, UNSPECIFIED ORGANISM; D70.9 - NEUTROPENIA, UNSPECIFIED (5) History of UTI Assessment/Plan: -ID on board -IV Ertapenem and Vancomycin -no leukocytosis -UC neg Code(s): Z87.440 - PERSONAL HISTORY OF URINARY (TRACT) INFECTIONS (6) Lactic acid acidosis Assessment/Plan: -repeat in AM Code(s): E87.2 - ACIDOSIS
--- NOTE | 2018-12-13 16:01 | PN ---
Progress Note (short form) - Note Progress Note: afebrile nad alert Vital Signs Period Temp Pulse Resp BP Sys/Howe Pulse Ox Last 24 Hr 98.2 F-99.2 F 84-103 14-22 97-123/56-70 96-99 cor-rrr lungs decreased bs at bases abd soft,+GT, nt ext no edema trach to vent CBC, BMP 12/13/18 07:15 12/13/18 07:15 Microbiology 12/01/18 04:36 Blood - Peripheral Venous Blood Culture - Final NO GROWTH AFTER 5 DAYS INCUBATION 12/01/18 04:36 Blood - Peripheral Venous Blood Culture - Final NO GROWTH AFTER 5 DAYS INCUBATION 12/01/18 09:08 Sputum - Endotrachea Suction/Ventilator Gram Stain - Final 12/01/18 09:08 Sputum - Endotrachea Suction/Ventilator Sputum Culture - Final Enterobacter Cloacae Mr S Aureus Alpha Hemolytic Streptococcus Proteus Mirabilis 12/01/18 18:44 Urine - Urine Mckeon Legionella Antigen - Final 12/01/18 18:44 Urine - Urine Mckeon Streptococcus pneumoniae Antigen (M - Final 12/01/18 04:45 Urine - Urine - Catheterized Urine Culture - Final NO GROWTH OBTAINED a/p fevers resolved since 12/08 ?aspiration pneumonia , s/p IR guided biopsy of mass-nondiagnostic s/p hemorrhagic CVA with craniotomy vancomycin/ertapenem day #11- d/c antibiotics and observe
--- NOTE | 2018-12-13 21:54 | CONS ---
DATE OF CONSULTATION: DATE OF DICTATION: 12/13/2018 The patient is a 73-year-old man with a past medical history of a right CVA approximately a month ago, status post tracheostomy and PEG, who [facility] and brought to the emergency room with fever up to 106, tachycardia, and hypoxia. He was admitted with a diagnosis of lactic acidosis, neutropenic sepsis. During the course, he was noted to have abnormal alkaline phosphatase. He is trach'd and PEG'd and does not offer any additional history. PAST MEDICAL AND SURGICAL HISTORY: As listed in the HPI. ALLERGIES: No known drug allergies. SOCIAL HISTORY: No drinking, smoking, or drug abuse. FAMILY HISTORY: Unable to obtain. REVIEW OF SYSTEMS: Unable to obtain secondary to his mental status. PHYSICAL EXAMINATION: Vital Signs: Temperature 98, pulse 100, blood pressure 105/67, pulse oximetry ventilated, respiratory rate 16. General: No acute distress. Responds to stimuli. HEENT: Anicteric sclerae. Cardiovascular: S1, S2, regular rate and rhythm. Lungs: Bilaterally clear to auscultation. Abdomen: Soft and nontender anteriorly. Lower Extremities: No edema. LABORATORY DATA: White blood cell count 8.6, hemoglobin 10, hematocrit 32, MCV 89, platelet count 253. INR 1.1. Sodium 144, potassium 3.8, BUN 13, creatinine 0.6, glucose 104. AST 20, ALT 19, alkaline phosphatase 163. Over the past couple of days, his alkaline phosphatase has been between 170 to 190. Urine is negative. He has not had an abdominal ultrasound during this hospitalization. He has had an abdominal CT scan on the , which revealed large complex mass or collection in the left lower pelvic inguinal canal and left hip region, questionable intramuscular type of hematoma or even an abscess or neoplasm. It was present on a previous study on the 2018. IMPRESSION: 1. Abnormal alkaline phosphatase included in the differential diagnosis, medication induced, underlying liver pathology, or alkaline phosphatase not associated with hepatic disease but other etiology. 2. Sepsis, lactic acidosis, atrial fibrillation. RECOMMENDATION: Abdominal ultrasound when the patient is more stable. Would fractionate his alkaline phosphatase or obtain alkaline phosphatase isoenzymes for further evaluation of the etiology of this patient's elevation of his alkaline phosphatase. This can all be done when the patient is more stable. Continue PEG tube feeds. Follow up pathology from the IR biopsy, which appears to be preliminarily negative. Antibiotics, as per primary medical team, on ertapenem and vancomycin. DO ASHLIE RICHARDS/[id number]
[2018-12-14] MEDS: HEPARIN NA (PORCINE) 5,000 UNITS/ML 1ML VIAL SQ SCH ×3 (06:16→22:14)
[2018-12-14 07:39] LABS: BASO % 0.7 % (0-2.0); EOS % 1.2 % (0-4.5); HEMATOCRIT 31.3 % (35.4-49); HEMOGLOBIN 9.8 GM/dL (11.7-16.9); LYMPH % 13.1 % (8-40); MCH 28.2 pg (25.7-33.7); MCHC 31.4 g/dl (32.0-35.9); MEAN CELL VOLUME 89.6 fl (80-96); MEAN PLT VOLUME 8.7 fl (7.5-11.1); MONO % 12.5 % (3.8-10.2); NEUT % 72.5 % (42.8-82.8); PLATELET COUNT 293 K/MM3 (134-434); WHITE BLOOD COUNT 7.4 K/mm3 (4.0-10.0)
[2018-12-14 08:28] LABS: ALBUMIN 2.3 g/dl (3.4-5.0); BILIRUBIN,TOTAL 0.3 mg/dL (0.2-1); CALCIUM 8.5 mg/dL (8.5-10.1); CREATININE 0.6 mg/dL (0.55-1.3); TOT PROT 6.2 g/dl (6.4-8.2)
[2018-12-14] MEDS: BACITRACIN 15 GM TUBE TOPICAL OINTMENT TP SCH (10:45)
--- NOTE | 2018-12-14 10:51 | DS ---
Physical Examination Vital Signs: Vital Signs Temperature 98.9 F 12/14/18 06:00 Pulse Rate 112 H 12/14/18 06:00 Respiratory Rate 19 12/14/18 08:36 Blood Pressure 110/63 12/14/18 06:00 O2 Sat by Pulse Oximetry (%) 97 12/13/18 21:00 Findings/Remarks: 73 y/o male BIBEMS to [facility] ER from [facility] with fever of 106, tachycardia, and hypoxic to high 80s (per EMS crew). The pt is trach and PEG dependent s/p Right MCA CVA approx. one month ago.s/p cranietomy Care was provided at [facility]. Pt was discharged to [facility] on Wednesday. according to labs in [facility] his wbc 5.2 and creatinine 0.8 on arrival in ER temp 105.1 and wbc 1.7 and creatinine 1.2 lactic acid 3.1 patient given vancomycin and zosyn and ivf in ER micro: Microbiology 12/01/18 04:36 Blood - Peripheral Venous Blood Culture - Final NO GROWTH AFTER 5 DAYS INCUBATION 12/01/18 04:36 Blood - Peripheral Venous Blood Culture - Final NO GROWTH AFTER 5 DAYS INCUBATION 12/01/18 09:08 Sputum - Endotrachea Suction/Ventilator Gram Stain - Final 12/01/18 09:08 Sputum - Endotrachea Suction/Ventilator Sputum Culture - Final Enterobacter Cloacae Mr S Aureus Alpha Hemolytic Streptococcus Proteus Mirabilis 12/01/18 18:44 Urine - Urine Mckeon Legionella Antigen - Final 12/01/18 18:44 Urine - Urine Mckeon Streptococcus pneumoniae Antigen (M - Final 12/01/18 04:45 Urine - Urine - Catheterized Urine Culture - Final NO GROWTH OBTAINED Pt was given ertapenem Constitutional: Yes: Well Nourished, No Distress, Calm Cardiovascular: Yes: Regular Rate and Rhythm Respiratory: Yes: Mechanically Ventilated Gastrointestinal: Yes: Normal Bowel Sounds, Soft Musculoskeletal: Yes: WNL Extremities: Yes: WNL Edema: No Peripheral Pulses WNL: Yes Neurological: Yes: Pre-Existing Deficit Labs: CBC, BMP 12/14/18 06:50 12/14/18 06:50 Discharge Summary Reason For Visit: NEUTROPENIC SEPSIS, SYSTEMIC INFLAMMATORY RESPONSE Current Active Problems Abdominal fluid collection (Acute) Afib (Acute) Atrial flutter (Acute) CVA (cerebral vascular accident) (Acute) Chronic respiratory failure (Acute) Electrolyte abnormality (Acute) History of UTI (Acute) Lactic acid acidosis (Acute) Neutropenic sepsis (Acute) Pleural effusion (Acute) Status post CVA (Acute) Systemic inflammatory response syndrome (SIRS) (Acute) Hospital Course: Laboratory Last Values WBC 7.4 K/mm3 (4.0-10.0) 12/14/18 06:50 RBC 3.50 M/mm3 (4.00-5.60) L 12/14/18 06:50 Hgb 9.8 GM/dL (11.7-16.9) L 12/14/18 06:50 Hct 31.3 % (35.4-49) L 12/14/18 06:50 MCV 89.6 fl (80-96) 12/14/18 06:50 MCH 28.2 pg (25.7-33.7) 12/14/18 06:50 MCHC 31.4 g/dl (32.0-35.9) L 12/14/18 06:50 RDW 19.0 % (11.9-15.9) H 12/14/18 06:50 Plt Count 293 K/MM3 (134-434) 12/14/18 06:50 MPV 8.7 fl (7.5-11.1) 12/14/18 06:50 Absolute Neuts (auto) 5.4 K/mm3 (1.5-8.0) 12/14/18 06:50 Neutrophils % 72.5 % (42.8-82.8) 12/14/18 06:50 Neutrophils % (Manual) 51.0 % (42.8-82.8) 12/07/18 05:30 Band Neutrophils % 2.0 % 12/07/18 05:30 Lymphocytes % 13.1 % (8-40) 12/14/18 06:50 Lymphocytes % (Manual) 32.0 % (8-40) D 12/07/18 05:30 Monocytes % 12.5 % (3.8-10.2) H D 12/14/18 06:50 Monocytes % (Manual) 11 % (3.8-10.2) H 12/07/18 05:30 Eosinophils % 1.2 % (0-4.5) 12/14/18 06:50 Eosinophils % (Manual) 1.0 % (0-4.5) D 12/07/18 05:30 Basophils % 0.7 % (0-2.0) 12/14/18 06:50 Basophils % (Manual) 1.0 % (0-2.0) 12/07/18 05:30 Myelocytes % (Man) 0 % (0-2) D 12/07/18 05:30 Promyelocytes % (Man) 0 % (0-2) 12/07/18 05:30 Blast Cells % (Manual) 0 % (0-0) 12/07/18 05:30 Nucleated RBC % 0 % (0-0) 12/14/18 06:50 Metamyelocytes 0 % (0-2) 12/07/18 05:30 Hypochromia 0 12/07/18 05:30 Platelet Estimate Normal 12/07/18 05:30 Platelet Comment Large platelets 12/13/18 07:15 Polychromasia 0 12/07/18 05:30 Poikilocytosis 1+ 12/07/18 05:30 Anisocytosis 1+ 12/07/18 05:30 Microcytosis 1+ 12/07/18 05:30 Macrocytosis 1+ 12/07/18 05:30 Ovalocytes 1+ 12/07/18 05:30 Schistocytes 1+ 12/06/18 05:15 PT with INR 13.80 SEC (9.7-13.0) H 12/06/18 05:15 INR 1.17 (0.83-1.09) H 12/06/18 05:15 PTT (Actin FS) 24.1 SECONDS (25.2-36.5) L 12/06/18 05:15 Anticoagulation Therapy No Result Required. 12/01/18 05:15 Puncture Site No Result Required. 12/01/18 05:15 ABG pH 7.49 (7.35-7.45) H 12/01/18 05:15 ABG pCO2 at Pt Temp 30.7 mmHg (35-45) L 12/01/18 05:15 ABG pO2 at Pt Temp 74.9 mmHg (80-105) L 12/01/18 05:15 ABG HCO3 23.0 mmol/L (22-27) 12/01/18 05:15 ABG O2 Sat (Measured) 96.1 % (95-98) 12/01/18 05:15 ABG O2 Content 15.3 % vol (15-22) 12/01/18 05:15 ABG Base Excess 0.6 meq/l (-2-2) 12/01/18 05:15 [place] Test No Result Required. 12/01/18 05:15 Carboxyhemoglobin 1.7 % (0-2) 12/01/18 05:15 Methemoglobin 0.1 % (0-2) 12/01/18 05:15 O2 Delivery Device No Result Required. 12/01/18 05:15 Oxygen Flow Rate No Result Required. 12/01/18 05:15 Vent Mode No Result Required. 12/01/18 05:15 Vent Rate No Result Required. 12/01/18 05:15 Mechanical Rate No Result Required. 12/01/18 05:15 Pressure Support Vent No Result Required. 12/01/18 05:15 Sodium 144 mmol/L (136-145) 12/14/18 06:50 Potassium 4.0 mmol/L (3.5-5.1) 12/14/18 06:50 Chloride 110 mmol/L (98-107) H 12/14/18 06:50 Carbon Dioxide 27 mmol/L (21-32) 12/14/18 06:50 Anion Gap 8 MMOL/L (8-16) 12/14/18 06:50 BUN 14 mg/dL (7-18) 12/14/18 06:50 Creatinine 0.6 mg/dL (0.55-1.3) 12/14/18 06:50 Est GFR (CKD-EPI)AfAm 116.42 12/14/18 06:50 Est GFR (CKD-EPI)NonAf 100.45 12/14/18 06:50 POC Glucometer 108 UNITS (80-120) 12/01/18 05:21 Random Glucose 95 mg/dL (74-106) 12/14/18 06:50 Lactic Acid 1.3 mmol/L (0.4-2.0) 12/14/18 06:50 Calcium 8.5 mg/dL (8.5-10.1) 12/14/18 06:50 Phosphorus 3.3 mg/dL (2.5-4.9) 12/08/18 06:30 Magnesium 2.0 mg/dL (1.8-2.4) 12/08/18 06:30 Total Bilirubin 0.3 mg/dL (0.2-1) 12/14/18 06:50 AST 19 U/L (15-37) 12/14/18 06:50 ALT 18 U/L (13-61) 12/14/18 06:50 Alkaline Phosphatase 176 U/L (45-117) H 12/14/18 06:50 Troponin I 0.02 ng/ml (0.00-0.05) 12/01/18 04:35 Total Protein 6.2 g/dl (6.4-8.2) L 12/14/18 06:50 Albumin 2.3 g/dl (3.4-5.0) L 12/14/18 06:50 Vitamin B12 762 pg/ml (193-986) 12/02/18 08:40 Folate 1505 ng/mL (>498) 12/02/18 08:40 Folate Hemolysate 368.7 ng/mL (Not Estab.) 12/02/18 08:40 TSH 1.53 uIU/ml (0.358-3.74) 12/02/18 08:40 Urine Color Yellow 12/01/18 04:45 Urine Appearance Clear 12/01/18 04:45 Urine pH 6.0 (5.0-8.0) 12/01/18 04:45 Ur Specific [place] 1.019 (1.010-1.035) 12/01/18 04:45 Urine Protein Trace (NEGATIVE) 12/01/18 04:45 Urine Glucose (UA) Negative (NEGATIVE) 12/01/18 04:45 Urine Ketones Negative (NEGATIVE) 12/01/18 04:45 Urine Blood Negative (NEGATIVE) 12/01/18 04:45 Urine Nitrite Negative (NEGATIVE) 12/01/18 04:45 Urine Bilirubin Negative (NEGATIVE) 12/01/18 04:45 Urine Urobilinogen 0.2 mg/dL (0.2-1.0) 12/01/18 04:45 Ur Leukocyte Esterase Negative (NEGATIVE) 12/01/18 04:45 Vancomycin Pre-Dose 16.6 ug/ml (18-26) L 12/05/18 12:00 Blood Type A POSITIVE 12/01/18 13:00 Antibody Screen Negative 12/01/18 08:15 Crossmatch See Detail 12/01/18 08:15 Microbiology 12/01/18 04:36 Blood - Peripheral Venous Blood Culture - Final NO GROWTH AFTER 5 DAYS INCUBATION 12/01/18 04:36 Blood - Peripheral Venous Blood Culture - Final NO GROWTH AFTER 5 DAYS INCUBATION 12/01/18 09:08 Sputum - Endotrachea Suction/Ventilator Gram Stain - Final 12/01/18 09:08 Sputum - Endotrachea Suction/Ventilator Sputum Culture - Final Enterobacter Cloacae Mr S Aureus Alpha Hemolytic Streptococcus Proteus Mirabilis 12/01/18 18:44 Urine - Urine Mckeon Legionella Antigen - Final 12/01/18 18:44 Urine - Urine Mckeon Streptococcus pneumoniae Antigen (M - Final 12/01/18 04:45 Urine - Urine - Catheterized Urine Culture - Final NO GROWTH OBTAINED Vital Signs Temp 98.9 F 12/14/18 06:00 Pulse 112 H 12/14/18 06:00 Resp 19 12/14/18 08:36 BP 110/63 12/14/18 06:00 Pulse Ox 97 12/13/18 21:00 Intake & Output 12/13/18 12/13/18 12/14/18 11:59 23:59 11:59 Intake Total 990 Balance 990 Weight 63.503 kg Intake: IVPB 250 Tube Feeding 520 Tube Irrigant 220 Other: Voiding Method Incontinent Incontinent Incontinent # Unmeasured Voids Void 2 Bowel Movement No Yes: rectal tube bag # Bowel Movements 1 Weight Measurement [facility] Condition: Stable - Instructions Diet, Activity, Other Instructions: -Continue Jevity 1.5 at 45 cc/hr with 20 cc/hr water -U/S abdomen Disposition: SNF FACILITY - Home Medications Comprehensive Discharge Medication List: Ambulatory Orders Acetaminophen [Tylenol] 325 mg GT Q8H PRN 12/07/18 Collagenase Clostridium Hist. [Santyl] 1 applic TP DAILY 12/07/18 Famotidine 10 mg GT DAILY 12/07/18 Metoprolol Tartrate 100 mg GT BID 12/07/18 Multivitamins [Multivit ([facility] Formulary)] 1 tab GT DAILY 12/07/18 Thiamine Mononitrate [Vitamin B-1] 100 mg GT DAILY 12/07/18 Heparin - 5,000 unit SQ BID vial 12/14/18
[2018-12-14] MEDS: METOPROLOL TARTRATE 50 MG TABLET (FP) GT SCH ×2 (12:01→22:14)
--- NOTE | 2018-12-14 13:41 | PN ---
Progress Note (short form) - Note Progress Note: PULMONARY Vented, poorly responsive. Vital Signs Period Temp Pulse Resp BP Sys/Howe Pulse Ox Last 24 Hr 98.7 F-98.9 F 70-112 14-22 105-111/54-72 97 Gen: vented, poorly responsive Heart: RRR Lung: scattered rhonchi Abd: soft, nontender Ext: no edema, left leg contracted CBC, BMP 12/14/18 06:50 12/14/18 06:50 Active Medications Bacitracin (Bacitracin -) 1 applic TP DAILY [facility] Last Admin: 12/13/18 09:02 Dose: 1 applic Heparin Sodium (Porcine) (Heparin -) 5,000 unit SQ TID [facility] Last Admin: 12/14/18 06:16 Dose: 5,000 unit Metoprolol Tartrate (Lopressor -) 100 mg GT BID [facility] Last Admin: 12/14/18 12:01 Dose: Not Given A/P Atrial Flutter with RVR Neutropenic Severe Sepsis Pneumonia Lactic Acidosis Chronic Respiratory Failure Recent Hemorrhagic Stroke - rate control - continue antibiotics - monitor urine output, creatinine - continue volume assist control - not a candidate for weaning at this time given poor mental status - enteral feeds - DVT/GI prophylaxis
--- NOTE | 2018-12-14 16:51 | PN.GI ---
GI Progress Note Subjective: no new complaints - status unchanged - Objective Vital Signs: Vital Signs Temperature 99.0 F 12/14/18 14:26 Pulse Rate 114 H 12/14/18 14:26 Respiratory Rate 14 12/14/18 15:22 Blood Pressure 112/74 12/14/18 14:26 O2 Sat by Pulse Oximetry (%) 97 12/13/18 21:00 Constitutional: No Distress Eyes: Yes: WNL HENT: Yes: WNL Neck: Yes: WNL Cardiovascular: Yes: WNL Respiratory: Yes: WNL, Regular, CTA Bilaterally Gastrointestinal Inspection: Yes: WNL Edema: No Labs: CBC, BMP 12/14/18 06:50 12/14/18 06:50 INR, PTT INR 1.17 (0.83-1.09) H 12/06/18 05:15 Problem List - Problems (1) Transaminitis Assessment/Plan: await abd sonogram and ALP isoenzymes trend lft qd abx as per primary medical team Code(s): R74.0 - NONSPEC ELEV OF LEVELS OF TRANSAMNS & LACTIC ACID DEHYDRGNSE (2) CVA (cerebral vascular accident) Code(s): I63.9 - CEREBRAL INFARCTION, UNSPECIFIED (3) Chronic respiratory failure Code(s): J96.10 - CHRONIC RESPIRATORY FAILURE, UNSP W HYPOXIA OR HYPERCAPNIA (4) Lactic acid acidosis Code(s): E87.2 - ACIDOSIS
[2018-12-15] MEDS: HEPARIN NA (PORCINE) 5,000 UNITS/ML 1ML VIAL SQ SCH ×3 (06:25→22:57)
[2018-12-15 07:59] LABS: ALBUMIN 2.5 g/dl (3.4-5.0); BILIRUBIN,TOTAL 0.4 mg/dL (0.2-1); CALCIUM 8.8 mg/dL (8.5-10.1); CREATININE 0.6 mg/dL (0.55-1.3); POTASSIUM 3.8 mmol/L (3.5-5.1); TOT PROT 6.6 g/dl (6.4-8.2)
[2018-12-15 08:07] LABS: BASO % 0.5 % (0-2.0); EOS % 1.5 % (0-4.5); HEMATOCRIT 32.4 % (35.4-49); HEMOGLOBIN 10.4 GM/dL (11.7-16.9); LYMPH % 18.6 % (8-40); MCH 28.7 pg (25.7-33.7); MCHC 32.1 g/dl (32.0-35.9); MEAN CELL VOLUME 89.3 fl (80-96); MEAN PLT VOLUME 9.3 fl (7.5-11.1); MONO % 10.6 % (3.8-10.2); NEUT % 68.8 % (42.8-82.8); PLATELET COUNT 326 K/MM3 (134-434); RBC 3.63 M/mm3 (4.00-5.60); RDW 18.4 % (11.9-15.9); WHITE BLOOD COUNT 6.5 K/mm3 (4.0-10.0)
--- NOTE | 2018-12-15 10:31 | PN ---
Progress Note (short form) - Note Progress Note: Remains vented and poorly responsive. AC Mode of vent, 50% FiO2. Afebrile. Intake & Output 12/12/18 12/13/18 12/14/18 12/15/18 23:59 23:59 23:59 23:59 Intake Total 2625 990 Balance 2625 990 Weight 140 lb Last Vital Signs Temp Pulse Resp BP Pulse Ox 98.8 F 105 H 19 119/70 95 12/15/18 06:00 12/15/18 06:00 12/15/18 06:29 12/15/18 06:00 12/14/18 21:00 Active Medications Bacitracin (Bacitracin -) 1 applic TP DAILY [facility] Last Admin: 12/14/18 10:45 Dose: 1 applic Heparin Sodium (Porcine) (Heparin -) 5,000 unit SQ TID [facility] Last Admin: 12/15/18 06:25 Dose: 5,000 unit Metoprolol Tartrate (Lopressor -) 100 mg GT BID [facility] Last Admin: 12/14/18 22:14 Dose: 100 mg Gen: vented, poorly responsive Heart: RRR Lung: scattered rhonchi Abd: soft, nontender Ext: no edema, left leg contracted Laboratory Results - last 24 hr 12/15/18 12/15/18 06:35 06:35 WBC 6.5 RBC 3.63 L Hgb 10.4 L Hct 32.4 L MCV 89.3 MCH 28.7 MCHC 32.1 RDW 18.4 H Plt Count 326 MPV 9.3 Absolute Neuts (auto) 4.5 Neutrophils % 68.8 Lymphocytes % 18.6 D Monocytes % 10.6 H Eosinophils % 1.5 Basophils % 0.5 Nucleated RBC % 0 Sodium 143 Potassium 3.8 Chloride 110 H Carbon Dioxide 26 Anion Gap 7 L BUN 13 Creatinine 0.6 Est GFR (CKD-EPI)AfAm 116.42 Est GFR (CKD-EPI)NonAf 100.45 Random Glucose 90 Calcium 8.8 Total Bilirubin 0.4 GGT 44 AST 22 ALT 23 Alkaline Phosphatase 193 H Total Protein 6.6 Albumin 2.5 L A/P Atrial Flutter with RVR Neutropenic Severe Sepsis Pneumonia Lactic Acidosis Chronic Respiratory Failure Recent Hemorrhagic Stroke - rate control - continue volume assist control - not a candidate for weaning at this time given poor mental status - enteral feeds - DVT/GI prophylaxis - There is no Pulmonary contraindication for D/C planning Dr Mahajan
[2018-12-15] MEDS: METOPROLOL TARTRATE 50 MG TABLET (FP) GT SCH ×2 (11:22→22:56)
[2018-12-15] MEDS: BACITRACIN 15 GM TUBE TOPICAL OINTMENT TP SCH (11:23)
--- NOTE | 2018-12-15 13:35 | PN ---
Progress Note, Physician Chief Complaint: patient seen and examined to go back to [facility] today awaiting abdominal sono for inc ALK phosphatase - Current Medication List Current Medications: Active Medications Bacitracin (Bacitracin -) 1 applic TP DAILY [facility] Last Admin: 12/15/18 11:23 Dose: 1 applic Heparin Sodium (Porcine) (Heparin -) 5,000 unit SQ TID [facility] Last Admin: 12/15/18 06:25 Dose: 5,000 unit Metoprolol Tartrate (Lopressor -) 100 mg GT BID [facility] Last Admin: 12/15/18 11:22 Dose: 100 mg - Objective Vital Signs: Vital Signs Temperature 98.8 F 12/15/18 06:00 Pulse Rate 105 H 12/15/18 06:00 Respiratory Rate 21 H 12/15/18 10:53 Blood Pressure 119/70 12/15/18 06:00 O2 Sat by Pulse Oximetry (%) 95 12/14/18 21:00 Constitutional: Yes: Calm Neck: Yes: Other (trach) Cardiovascular: Yes: Regular Rate and Rhythm, S1, S2 Respiratory: Yes: CTA Bilaterally, Mechanically Ventilated Gastrointestinal: Yes: Normal Bowel Sounds, Soft Neurological: Yes: Pre-Existing Deficit (leftside weakness) Labs: CBC, BMP 12/15/18 06:35 12/15/18 06:35 INR, PTT INR 1.17 (0.83-1.09) H 12/06/18 05:15 Problem List - Problems (1) Lactic acid acidosis Assessment/Plan: resolves completed abx course Code(s): E87.2 - ACIDOSIS (2) Neutropenic sepsis Assessment/Plan: absolute neutrophil count noted- wbc count improving S/P iv abx ertrapenem and vancomycin S/p IR biopsy Code(s): A41.9 - SEPSIS, UNSPECIFIED ORGANISM; D70.9 - NEUTROPENIA, UNSPECIFIED (3) Status post CVA Assessment/Plan: s/p trach and peg dvt ppx Code(s): Z86.73 - PRSNL HX OF TIA (TIA), AND CEREB INFRC W/O RESID DEFICITS (4) Atrial flutter Assessment/Plan: metaprolol 100mg bid via g tube Code(s): I48.92 - UNSPECIFIED ATRIAL FLUTTER (5) Abdominal fluid collection Assessment/Plan: IR for biopsy Code(s): R18.8 - OTHER ASCITES (6) History of UTI Assessment/Plan: VRe in urine isolation Code(s): Z87.440 - PERSONAL HISTORY OF URINARY (TRACT) INFECTIONS (7) Electrolyte abnormality Assessment/Plan: hypokalemia- improved repleted Code(s): E87.8 - OTH DISORDERS OF ELECTROLYTE AND FLUID BALANCE, NEC (8) Pleural effusion Assessment/Plan: lasix cxr noted left sided pleural effusion Code(s): J90 - PLEURAL EFFUSION, NOT ELSEWHERE CLASSIFIED
--- NOTE | 2018-12-15 19:21 | PN ---
Progress Note (short form) - Note Progress Note: Patient just having Abd US now. Await report
[2018-12-16] MEDS: HEPARIN NA (PORCINE) 5,000 UNITS/ML 1ML VIAL SQ SCH ×3 (06:06→21:50)
[2018-12-16 08:05] LABS: BASO % 0.5 % (0-2.0); EOS % 0.9 % (0-4.5); HEMATOCRIT 33.3 % (35.4-49); HEMOGLOBIN 10.7 GM/dL (11.7-16.9); LYMPH % 11.1 % (8-40); MCH 28.8 pg (25.7-33.7); MCHC 32.3 g/dl (32.0-35.9); MEAN CELL VOLUME 89.2 fl (80-96); MONO % 11.1 % (3.8-10.2); NEUT % 76.4 % (42.8-82.8); PLATELET COUNT 291 K/MM3 (134-434); RBC 3.73 M/mm3 (4.00-5.60); RDW 19.2 % (11.9-15.9); WHITE BLOOD COUNT 7.1 K/mm3 (4.0-10.0)
[2018-12-16 08:37] LABS: ALBUMIN 2.6 g/dl (3.4-5.0); BILIRUBIN,TOTAL 0.4 mg/dL (0.2-1); CALCIUM 9.1 mg/dL (8.5-10.1); CREATININE 0.7 mg/dL (0.55-1.3); POTASSIUM 4.1 mmol/L (3.5-5.1); TOT PROT 6.7 g/dl (6.4-8.2)
--- NOTE | 2018-12-16 11:22 | PN ---
Progress Note, Physician Chief Complaint: pateint has temp 100.7 today off abx will get blood and urine cultures today patient kept moving his right arm and pushing me away while i am trying to examine him - Current Medication List Current Medications: Active Medications Bacitracin (Bacitracin -) 1 applic TP DAILY [facility] Last Admin: 12/15/18 11:23 Dose: 1 applic Heparin Sodium (Porcine) (Heparin -) 5,000 unit SQ TID [facility] Last Admin: 12/16/18 06:06 Dose: 5,000 unit Metoprolol Tartrate (Lopressor -) 100 mg GT BID [facility] Last Admin: 12/15/18 22:56 Dose: 100 mg Nystatin (Mycostatin Ointment -) 1 applic TP BID [facility] - Objective Vital Signs: Vital Signs Temperature 98.7 F 12/16/18 06:00 Pulse Rate 92 H 12/16/18 06:00 Respiratory Rate 22 H 12/16/18 10:15 Blood Pressure 105/63 12/16/18 06:00 O2 Sat by Pulse Oximetry (%) 94 L 12/15/18 21:00 Constitutional: Yes: Calm Neck: Yes: Other (trach) Cardiovascular: Yes: Regular Rate and Rhythm, S1, S2 Respiratory: Yes: Mechanically Ventilated Gastrointestinal: Yes: Normal Bowel Sounds, Soft ...Rectal Exam: Yes: Other (rectal tube) Edema: No Neurological: Yes: Pre-Existing Deficit (left side weakness), Other (does not verbalize) Labs: CBC, BMP 12/16/18 07:30 12/16/18 07:30 INR, PTT INR 1.17 (0.83-1.09) H 12/06/18 05:15 Problem List - Problems (1) Fever Assessment/Plan: today temp 100.7 will repeat blood and urine cultures tylenol and ID follow up Code(s): R50.9 - FEVER, UNSPECIFIED (2) Lactic acid acidosis Assessment/Plan: resolves completed abx course Code(s): E87.2 - ACIDOSIS (3) Neutropenic sepsis Assessment/Plan: absolute neutrophil count noted- wbc count improving S/P iv abx ertrapenem and vancomycin S/p IR biopsy Code(s): A41.9 - SEPSIS, UNSPECIFIED ORGANISM; D70.9 - NEUTROPENIA, UNSPECIFIED (4) Status post CVA Assessment/Plan: s/p trach and peg dvt ppx Code(s): Z86.73 - PRSNL HX OF TIA (TIA), AND CEREB INFRC W/O RESID DEFICITS (5) Atrial flutter Assessment/Plan: metaprolol 100mg bid via g tube Code(s): I48.92 - UNSPECIFIED ATRIAL FLUTTER (6) Abdominal fluid collection Assessment/Plan: IR for biopsy Code(s): R18.8 - OTHER ASCITES (7) History of UTI Assessment/Plan: VRe in urine isolation Code(s): Z87.440 - PERSONAL HISTORY OF URINARY (TRACT) INFECTIONS (8) Electrolyte abnormality Assessment/Plan: hypokalemia- improved repleted Code(s): E87.8 - OTH DISORDERS OF ELECTROLYTE AND FLUID BALANCE, NEC (9) Pleural effusion Assessment/Plan: lasix cxr noted left sided pleural effusion Code(s): J90 - PLEURAL EFFUSION, NOT ELSEWHERE CLASSIFIED
--- NOTE | 2018-12-16 11:24 | PN ---
Progress Note (short form) - Note Progress Note: daleo noted for contracted GB no acute pathology ALk Phosp slight lower today ID follow up for temp repeat cultures Problem List - Problems (1) Fever Code(s): R50.9 - FEVER, UNSPECIFIED (2) Lactic acid acidosis Code(s): E87.2 - ACIDOSIS (3) Neutropenic sepsis Code(s): A41.9 - SEPSIS, UNSPECIFIED ORGANISM; D70.9 - NEUTROPENIA, UNSPECIFIED (4) Status post CVA Code(s): Z86.73 - PRSNL HX OF TIA (TIA), AND CEREB INFRC W/O RESID DEFICITS (5) Atrial flutter Code(s): I48.92 - UNSPECIFIED ATRIAL FLUTTER (6) Abdominal fluid collection Code(s): R18.8 - OTHER ASCITES (7) History of UTI Code(s): Z87.440 - PERSONAL HISTORY OF URINARY (TRACT) INFECTIONS (8) Electrolyte abnormality Code(s): E87.8 - OTH DISORDERS OF ELECTROLYTE AND FLUID BALANCE, NEC (9) Pleural effusion Code(s): J90 - PLEURAL EFFUSION, NOT ELSEWHERE CLASSIFIED
--- NOTE | 2018-12-16 13:42 | PN ---
Progress Note, Physician History of Present Illness: pulmonary awake,poorly responsive on vent support ac mode - Current Medication List Current Medications: Active Medications Bacitracin (Bacitracin -) 1 applic TP DAILY [facility] Last Admin: 12/15/18 11:23 Dose: 1 applic Heparin Sodium (Porcine) (Heparin -) 5,000 unit SQ TID [facility] Last Admin: 12/16/18 06:06 Dose: 5,000 unit Metoprolol Tartrate (Lopressor -) 100 mg GT BID [facility] Last Admin: 12/15/18 22:56 Dose: 100 mg Nystatin (Mycostatin Ointment -) 1 applic TP BID [facility] - Objective Vital Signs: Vital Signs Temperature 98.7 F 12/16/18 06:00 Pulse Rate 92 H 12/16/18 06:00 Respiratory Rate 22 H 12/16/18 10:15 Blood Pressure 105/63 12/16/18 06:00 O2 Sat by Pulse Oximetry (%) 94 L 12/15/18 21:00 Constitutional: Yes: Thin, Other (awake,poorly responsive) Eyes: Yes: WNL HENT: Yes: WNL Neck: Yes: Supple (trach) Cardiovascular: Yes: Regular Rate and Rhythm, S1, S2 Respiratory: Yes: Rhonchi (few scattered rhonchi) Gastrointestinal: Yes: Normal Bowel Sounds, Soft Extremities: Yes: WNL (L leg contracted), Other Edema: No Labs: CBC, BMP 12/16/18 07:30 12/16/18 07:30 INR, PTT INR 1.17 (0.83-1.09) H 12/06/18 05:15 Problem List - Problems (1) Chronic respiratory failure Code(s): J96.10 - CHRONIC RESPIRATORY FAILURE, UNSP W HYPOXIA OR HYPERCAPNIA (2) Afib Code(s): I48.91 - UNSPECIFIED ATRIAL FIBRILLATION (3) Atrial flutter Code(s): I48.92 - UNSPECIFIED ATRIAL FLUTTER (4) CVA (cerebral vascular accident) Code(s): I63.9 - CEREBRAL INFARCTION, UNSPECIFIED (5) Neutropenic sepsis Code(s): A41.9 - SEPSIS, UNSPECIFIED ORGANISM; D70.9 - NEUTROPENIA, UNSPECIFIED Assessment/Plan Atrial Flutter with RVR Neutropenic Severe Sepsis Pneumonia Lactic Acidosis Chronic Respiratory Failure Recent Hemorrhagic Stroke - rate control - monitor urine output, creatinine - continue volume assist control - not a candidate for weaning at this time given poor mental status - enteral feeds - DVT/GI prophylaxis DR BROWN
[2018-12-16 14:13] LABS: PH,URINE 6.5 (5.0-8.0); URINE APPEARANCE CLEAR; URINE BILIRUBIN NEGATIVE (NEGATIVE); URINE COLOR YELLOW; URINE GLUCOSE (UA) NEGATIVE (NEGATIVE); URINE KETONE NEGATIVE (NEGATIVE); URINE LEUK ESTERASE NEGATIVE (NEGATIVE); URINE NITRITE NEGATIVE (NEGATIVE); URINE PROTEIN NEGATIVE (NEGATIVE); URINE UROBILINOGEN 0.2 mg/dL (0.2-1.0)
[2018-12-16] MEDS: METOPROLOL TARTRATE 50 MG TABLET (FP) GT SCH ×2 (15:36→21:51)
[2018-12-16] MEDS: BACITRACIN 15 GM TUBE TOPICAL OINTMENT TP SCH (15:43)
--- NOTE | 2018-12-16 16:49 | PN.GI ---
GI Progress Note Subjective: No acute events US = contracted gallbladder, no stones and non dilated biliary tract - Objective Vital Signs: Vital Signs Temperature 99.3 F 12/16/18 14:39 Pulse Rate 80 12/16/18 14:39 Respiratory Rate 14 12/16/18 14:39 Blood Pressure 140/73 12/16/18 14:39 O2 Sat by Pulse Oximetry (%) 94 L 12/15/18 21:00 Constitutional: Calm Eyes: No: Sclera Icterus Cardiovascular: Yes: Tachycardia Respiratory: Yes: Diminished (at bases bilaterally) Gastrointestinal Inspection: No: Distention ...Auscultate: Yes: Normoactive Bowel Sounds ...Palpate: No: Tenderness (No grimacing upon palpation) ...Percussion: No: Tympanitic Edema: No (No LE edema) Labs: CBC, BMP 12/16/18 07:30 12/16/18 07:30 INR, PTT INR 1.17 (0.83-1.09) H 12/06/18 05:15 Hepatic Panel Total Bilirubin 0.4 mg/dL (0.2-1) 12/16/18 07:30 AST 18 U/L (15-37) 12/16/18 07:30 ALT 19 U/L (13-61) 12/16/18 07:30 Alkaline Phosphatase 187 U/L (45-117) H 12/16/18 07:30 Albumin 2.6 g/dl (3.4-5.0) L 12/16/18 07:30 Laboratory Tests 12/15/18 12/16/18 06:35 07:30 GGT 44 Alkaline Phosphatase 187 H Problem List - Problems (1) Elevated alkaline phosphatase level Assessment/Plan: Unrevealing abd US and GGT normal. evaluate for bone source of elevated ALP per primary team ALP isoenzymes ? pending Recall as needed Code(s): R74.8 - ABNORMAL LEVELS OF OTHER SERUM ENZYMES
[2018-12-16] MEDS: NYSTATIN 100000 UNIT/GM TOPICAL OINTMENT 15 GM TUBE TP SCH ×2 (19:53→21:52)
[2018-12-17] MEDS: HEPARIN NA (PORCINE) 5,000 UNITS/ML 1ML VIAL SQ SCH ×3 (06:05→23:00)
[2018-12-17 08:30] LABS: BASO % 0.8 % (0-2.0); EOS % 1.8 % (0-4.5); HEMATOCRIT 32.3 % (35.4-49); HEMOGLOBIN 10.2 GM/dL (11.7-16.9); MCH 28.6 pg (25.7-33.7); MCHC 31.5 g/dl (32.0-35.9); MEAN CELL VOLUME 90.7 fl (80-96); MEAN PLT VOLUME 9.7 fl (7.5-11.1); MONO % 13.4 % (3.8-10.2); PLATELET COUNT 240 K/MM3 (134-434); RBC 3.56 M/mm3 (4.00-5.60); WHITE BLOOD COUNT 5.4 K/mm3 (4.0-10.0)
[2018-12-17 08:56] LABS: ALBUMIN 2.4 g/dl (3.4-5.0); BILIRUBIN,TOTAL 0.4 mg/dL (0.2-1); CREATININE 0.7 mg/dL (0.55-1.3); POTASSIUM 3.7 mmol/L (3.5-5.1); TOT PROT 6.3 g/dl (6.4-8.2)
[2018-12-17] MEDS: NYSTATIN 100000 UNIT/GM TOPICAL OINTMENT 15 GM TUBE TP SCH ×2 (10:26→23:00)
[2018-12-17] MEDS: METOPROLOL TARTRATE 50 MG TABLET (FP) GT SCH ×2 (10:26→23:00)
--- NOTE | 2018-12-17 10:36 | PN ---
Progress Note, Physician History of Present Illness: pulmonary awake,poorly responsive on vent support ac mode - Current Medication List Current Medications: Active Medications Bacitracin (Bacitracin -) 1 applic TP DAILY [facility] Last Admin: 12/16/18 15:43 Dose: 1 applic Heparin Sodium (Porcine) (Heparin -) 5,000 unit SQ TID [facility] Last Admin: 12/17/18 06:05 Dose: 5,000 unit Metoprolol Tartrate (Lopressor -) 100 mg GT BID [facility] Last Admin: 12/17/18 10:26 Dose: 100 mg Nystatin (Mycostatin Ointment -) 1 applic TP BID [facility] Last Admin: 12/17/18 10:26 Dose: 1 applic - Objective Vital Signs: Vital Signs Temperature 98.6 F 12/17/18 06:00 Pulse Rate 105 H 12/17/18 06:00 Respiratory Rate 17 12/17/18 08:24 Blood Pressure 115/63 12/17/18 06:00 O2 Sat by Pulse Oximetry (%) 97 12/17/18 00:37 Constitutional: Yes: Calm, Other (awake,poorly responsive) Eyes: Yes: WNL HENT: Yes: WNL Neck: Yes: Supple (trach) Cardiovascular: Yes: Regular Rate and Rhythm, S1, S2 Respiratory: Yes: Rhonchi (few scattered rhonchi) Gastrointestinal: Yes: Normal Bowel Sounds, Soft Extremities: Yes: WNL Edema: No Labs: CBC, BMP 12/17/18 07:50 12/17/18 07:50 INR, PTT INR 1.17 (0.83-1.09) H 12/06/18 05:15 Problem List - Problems (1) Chronic respiratory failure Code(s): J96.10 - CHRONIC RESPIRATORY FAILURE, UNSP W HYPOXIA OR HYPERCAPNIA (2) Afib Code(s): I48.91 - UNSPECIFIED ATRIAL FIBRILLATION (3) Atrial flutter Code(s): I48.92 - UNSPECIFIED ATRIAL FLUTTER (4) CVA (cerebral vascular accident) Code(s): I63.9 - CEREBRAL INFARCTION, UNSPECIFIED (5) Neutropenic sepsis Code(s): A41.9 - SEPSIS, UNSPECIFIED ORGANISM; D70.9 - NEUTROPENIA, UNSPECIFIED Assessment/Plan Atrial Flutter with RVR Neutropenic Severe Sepsis Pneumonia Lactic Acidosis Chronic Respiratory Failure Recent Hemorrhagic Stroke - rate control - monitor urine output, creatinine - continue volume assist control - not a candidate for weaning at this time given poor mental status - enteral feeds - DVT/GI prophylaxis DR BROWN
--- NOTE | 2018-12-17 10:50 | PN ---
Progress Note, Physician Chief Complaint: awake confused nad events and notes reviewed - Current Medication List Current Medications: Active Medications Bacitracin (Bacitracin -) 1 applic TP DAILY [facility] Last Admin: 12/16/18 15:43 Dose: 1 applic Heparin Sodium (Porcine) (Heparin -) 5,000 unit SQ TID [facility] Last Admin: 12/17/18 06:05 Dose: 5,000 unit Metoprolol Tartrate (Lopressor -) 100 mg GT BID [facility] Last Admin: 12/17/18 10:26 Dose: 100 mg Nystatin (Mycostatin Ointment -) 1 applic TP BID [facility] Last Admin: 12/17/18 10:26 Dose: 1 applic - Objective Vital Signs: Vital Signs Temperature 98.6 F 12/17/18 06:00 Pulse Rate 105 H 12/17/18 06:00 Respiratory Rate 17 12/17/18 08:24 Blood Pressure 115/63 12/17/18 06:00 O2 Sat by Pulse Oximetry (%) 97 12/17/18 00:37 Constitutional: Yes: No Distress HENT: Yes: Other (tracheostomy) Cardiovascular: Yes: Regular Rate and Rhythm Respiratory: Yes: Mechanically Ventilated, Other Gastrointestinal: Yes: Soft Genitourinary: Yes: Incontinence Musculoskeletal: Yes: Muscle Weakness Labs: CBC, BMP 12/17/18 07:50 12/17/18 07:50 INR, PTT INR 1.17 (0.83-1.09) H 12/06/18 05:15 Problem List - Problems (1) Abdominal fluid collection Code(s): R18.8 - OTHER ASCITES (2) Afib Code(s): I48.91 - UNSPECIFIED ATRIAL FIBRILLATION (3) Chronic respiratory failure Code(s): J96.10 - CHRONIC RESPIRATORY FAILURE, UNSP W HYPOXIA OR HYPERCAPNIA (4) History of UTI Code(s): Z87.440 - PERSONAL HISTORY OF URINARY (TRACT) INFECTIONS (5) Status post CVA Code(s): Z86.73 - PRSNL HX OF TIA (TIA), AND CEREB INFRC W/O RESID DEFICITS (6) Systemic inflammatory response syndrome (SIRS) Code(s): R65.10 - SIRS OF NON-INFECTIOUS ORIGIN W/O ACUTE ORGAN DYSFUNCTION Assessment/Plan iv abx vent support pulm and id consults and f/u appreciated cheking labs monitor renal function
[2018-12-17] MEDS: BACITRACIN 15 GM TUBE TOPICAL OINTMENT TP SCH (15:31)
[2018-12-18] MEDS: HEPARIN NA (PORCINE) 5,000 UNITS/ML 1ML VIAL SQ SCH ×2 (05:54→14:54)
[2018-12-18] MEDS: METOPROLOL TARTRATE 50 MG TABLET (FP) GT SCH (11:05)
[2018-12-18 11:55] LABS: ARTERIAL BLD GAS O2 SATURATION 98.6 % (95-98); ARTERIAL BLOOD GAS BASE EXCESS 1.9 meq/l (-2-2); ARTERIAL BLOOD GAS PCO2 42.3 mmHg (35-45); ARTERIAL BLOOD GAS PO2 113 mmHg (80-105); ARTERIAL BLOOD GAS pH 7.41 (7.35-7.45)
[2018-12-18 11:56] LABS: ALLENS TEST POSITIVE
--- NOTE | 2018-12-18 12:26 | PN ---
Progress Note, Physician Chief Complaint: PATIENT WAS IN RESPIRATORY DISTRESS EARLIER CXR ORDERED REPOSITIONED NOW STABLE - Current Medication List Current Medications: Active Medications Bacitracin (Bacitracin -) 1 applic TP DAILY [facility] Last Admin: 12/17/18 15:31 Dose: 1 applic Heparin Sodium (Porcine) (Heparin -) 5,000 unit SQ TID [facility] Last Admin: 12/18/18 05:54 Dose: 5,000 unit Metoprolol Tartrate (Lopressor -) 100 mg GT BID [facility] Last Admin: 12/18/18 11:05 Dose: 100 mg Nystatin (Mycostatin Ointment -) 1 applic TP BID [facility] Last Admin: 12/17/18 23:00 Dose: 1 applic - Objective Vital Signs: Vital Signs Temperature 98.9 F 12/18/18 11:24 Pulse Rate 105 H 12/18/18 12:15 Respiratory Rate 26 H 12/18/18 12:15 Blood Pressure 128/80 12/18/18 10:00 O2 Sat by Pulse Oximetry (%) 97 12/18/18 08:15 Constitutional: Yes: No Distress Eyes: Yes: WNL HENT: Yes: WNL Neck: Yes: WNL Cardiovascular: Yes: Tachycardia Respiratory: Yes: Mechanically Ventilated (TRACHEOSTOMY) Gastrointestinal: Yes: Soft Genitourinary: Yes: Incontinence Musculoskeletal: Yes: Muscle Weakness Extremities: Yes: Deformity Edema: No Integumentary: Yes: Pressure Ulcer (LEFT LOWER EXTREMITY) Neurological: Yes: Pre-Existing Deficit ...Motor Strength: LLE Psychiatric: Yes: Other Labs: CBC, BMP 12/17/18 07:50 12/17/18 07:50 INR, PTT INR 1.17 (0.83-1.09) H 12/06/18 05:15 Problem List - Problems (1) Abdominal fluid collection Code(s): R18.8 - OTHER ASCITES (2) Afib Code(s): I48.91 - UNSPECIFIED ATRIAL FIBRILLATION (3) Chronic respiratory failure Code(s): J96.10 - CHRONIC RESPIRATORY FAILURE, UNSP W HYPOXIA OR HYPERCAPNIA (4) History of UTI Code(s): Z87.440 - PERSONAL HISTORY OF URINARY (TRACT) INFECTIONS (5) Status post CVA Code(s): Z86.73 - PRSNL HX OF TIA (TIA), AND CEREB INFRC W/O RESID DEFICITS (6) Systemic inflammatory response syndrome (SIRS) Code(s): R65.10 - SIRS OF NON-INFECTIOUS ORIGIN W/O ACUTE ORGAN DYSFUNCTION Assessment/Plan NEBS, RESP SUPPORT CXR NO ACUTE CHANGES AWAITING ABG MEDICAL DEVISE TO LEFT ANKLE NEEDING BACITRACIN TO SORE ON LEFT LEG/ANKLE. LABD REVIEWED SNF PLACEMENT
--- NOTE | 2018-12-18 13:29 | PN ---
Progress Note, Physician History of Present Illness: PULMONARY AWAKE,MORE RESPONSIVE IN VENT SUPPORT,AC MODE - Current Medication List Current Medications: Active Medications Bacitracin (Bacitracin -) 1 applic TP DAILY [facility] Last Admin: 12/17/18 15:31 Dose: 1 applic Heparin Sodium (Porcine) (Heparin -) 5,000 unit SQ TID [facility] Last Admin: 12/18/18 05:54 Dose: 5,000 unit Metoprolol Tartrate (Lopressor -) 100 mg GT BID [facility] Last Admin: 12/18/18 11:05 Dose: 100 mg Nystatin (Mycostatin Ointment -) 1 applic TP BID [facility] Last Admin: 12/17/18 23:00 Dose: 1 applic Olanzapine (Zyprexa -) 2.5 mg PO HS [facility] - Objective Vital Signs: Vital Signs Temperature 98.9 F 12/18/18 11:24 Pulse Rate 105 H 12/18/18 12:15 Respiratory Rate 26 H 12/18/18 12:15 Blood Pressure 128/80 12/18/18 10:00 O2 Sat by Pulse Oximetry (%) 97 12/18/18 08:15 Constitutional: Yes: Well Nourished, Calm Eyes: Yes: WNL HENT: Yes: WNL Neck: Yes: Supple (trach) Cardiovascular: Yes: Regular Rate and Rhythm, S1, S2 Respiratory: Yes: Rhonchi (scatttered rhonchi) Gastrointestinal: Yes: Normal Bowel Sounds, Soft Extremities: Yes: WNL Edema: No Labs: Laboratory Tests 12/18/18 11:40 ABG pH 7.41 ABG pCO2 at Pt Temp 42.3 ABG pO2 at Pt Temp 113 H ABG HCO3 26.3 ABG O2 Sat (Measured) 98.6 H Oxygen Flow Rate 50 Vent Rate 14 PEEP 5.0 Pressure Support Vent 400 Problem List - Problems (1) Chronic respiratory failure Code(s): J96.10 - CHRONIC RESPIRATORY FAILURE, UNSP W HYPOXIA OR HYPERCAPNIA (2) Afib Code(s): I48.91 - UNSPECIFIED ATRIAL FIBRILLATION (3) Atrial flutter Code(s): I48.92 - UNSPECIFIED ATRIAL FLUTTER (4) CVA (cerebral vascular accident) Code(s): I63.9 - CEREBRAL INFARCTION, UNSPECIFIED (5) Neutropenic sepsis Code(s): A41.9 - SEPSIS, UNSPECIFIED ORGANISM; D70.9 - NEUTROPENIA, UNSPECIFIED Assessment/Plan Atrial Flutter with RVR Neutropenic Severe Sepsis Pneumonia Lactic Acidosis Chronic Respiratory Failure Recent Hemorrhagic Stroke - rate control - monitor urine output, creatinine - continue volume assist control - not a candidate for weaning at this time given poor mental status - enteral feeds - DVT/GI prophylaxis - Morphine prn for agitation DR BROWN
[2018-12-18] MEDS: NYSTATIN 100000 UNIT/GM TOPICAL OINTMENT 15 GM TUBE TP SCH (14:56)
[2018-12-18] MEDS: BACITRACIN 15 GM TUBE TOPICAL OINTMENT TP SCH (18:00)
[2018-12-19] MEDS: METOPROLOL TARTRATE 50 MG TABLET (FP) GT SCH ×3 (00:35→23:07)
[2018-12-19] MEDS: OLANZapine 2.5 MG TABLET PO SCH ×2 (00:35→23:08)
[2018-12-19] MEDS: HEPARIN NA (PORCINE) 5,000 UNITS/ML 1ML VIAL SQ SCH ×4 (00:35→23:08)
[2018-12-19] MEDS: NYSTATIN 100000 UNIT/GM TOPICAL OINTMENT 15 GM TUBE TP SCH ×2 (00:36→15:03)
--- NOTE | 2018-12-19 13:20 | PN ---
Progress Note, Physician History of Present Illness: pulmonary alert,awake comfortable on vent support ac mode - Current Medication List Current Medications: Active Medications Bacitracin (Bacitracin -) 1 applic TP DAILY [facility] Last Admin: 12/18/18 18:00 Dose: 1 applic Heparin Sodium (Porcine) (Heparin -) 5,000 unit SQ TID [facility] Last Admin: 12/19/18 06:52 Dose: 5,000 unit Metoprolol Tartrate (Lopressor -) 100 mg GT BID [facility] Last Admin: 12/19/18 11:07 Dose: 100 mg Morphine Sulfate (Morphine Sulfate) 1 mg IVPUSH Q4H PRN PRN Reason: AGITATION Nystatin (Mycostatin Ointment -) 1 applic TP BID [facility] Last Admin: 12/19/18 00:36 Dose: 1 applic Olanzapine (Zyprexa -) 2.5 mg PO HS [facility] Last Admin: 12/19/18 00:35 Dose: 2.5 mg - Objective Vital Signs: Vital Signs Temperature 98 F 12/19/18 11:45 Pulse Rate 124 H 12/19/18 11:18 Respiratory Rate 24 H 12/19/18 11:18 Blood Pressure 110/60 12/19/18 11:18 O2 Sat by Pulse Oximetry (%) 97 12/19/18 11:40 Constitutional: Yes: Calm, Thin Eyes: Yes: WNL HENT: Yes: WNL Neck: Yes: Supple (trach) Cardiovascular: Yes: Regular Rate and Rhythm, S1, S2 Respiratory: Yes: Rhonchi (scattered rhonchi) Gastrointestinal: Yes: Normal Bowel Sounds, Soft Extremities: Yes: WNL Edema: No Labs: Problem List - Problems (1) Chronic respiratory failure Code(s): J96.10 - CHRONIC RESPIRATORY FAILURE, UNSP W HYPOXIA OR HYPERCAPNIA (2) Afib Code(s): I48.91 - UNSPECIFIED ATRIAL FIBRILLATION (3) Atrial flutter Code(s): I48.92 - UNSPECIFIED ATRIAL FLUTTER (4) CVA (cerebral vascular accident) Code(s): I63.9 - CEREBRAL INFARCTION, UNSPECIFIED (5) Neutropenic sepsis Code(s): A41.9 - SEPSIS, UNSPECIFIED ORGANISM; D70.9 - NEUTROPENIA, UNSPECIFIED Assessment/Plan Atrial Flutter with RVR Neutropenic Severe Sepsis Pneumonia Lactic Acidosis Chronic Respiratory Failure Recent Hemorrhagic Stroke - rate control - monitor urine output, creatinine - continue volume assist control - weaning as tolerated - enteral feeds - DVT/GI prophylaxis - Morphine prn for agitation DR BROWN
[2018-12-19] MEDS: BACITRACIN 15 GM TUBE TOPICAL OINTMENT TP SCH (15:02)
--- NOTE | 2018-12-19 15:29 | PN ---
Progress Note, Physician Chief Complaint: patient seen and examiend ope left heel wound with metal visible rash examined - Current Medication List Current Medications: Active Medications Bacitracin (Bacitracin -) 1 applic TP DAILY [facility] Last Admin: 12/19/18 15:02 Dose: 1 applic Heparin Sodium (Porcine) (Heparin -) 5,000 unit SQ TID [facility] Last Admin: 12/19/18 14:44 Dose: 5,000 unit Metoprolol Tartrate (Lopressor -) 100 mg GT BID [facility] Last Admin: 12/19/18 11:07 Dose: 100 mg Morphine Sulfate (Morphine Sulfate) 1 mg IVPUSH Q4H PRN PRN Reason: AGITATION Nystatin (Nystop Powder -) 1 applic TP TID [facility] Olanzapine (Zyprexa -) 2.5 mg PO HS [facility] Last Admin: 12/19/18 00:35 Dose: 2.5 mg - Objective Vital Signs: Vital Signs Temperature 98 F 12/19/18 11:45 Pulse Rate 124 H 12/19/18 11:18 Respiratory Rate 20 12/19/18 14:05 Blood Pressure 110/60 12/19/18 11:18 O2 Sat by Pulse Oximetry (%) 97 12/19/18 11:40 Constitutional: Yes: Calm Neck: Yes: Other (trach) Cardiovascular: Yes: Regular Rate and Rhythm, S1, S2 Respiratory: Yes: Mechanically Ventilated Gastrointestinal: Yes: Normal Bowel Sounds, Soft, Other (g tube) ...Rectal Exam: Yes: Other (rectal tube) Edema: No Integumentary: Yes: Rash (erythematous rash underarm and groin and sacrum) Neurological: Yes: Pre-Existing Deficit Labs: CBC, BMP 12/17/18 07:50 12/17/18 07:50 INR, PTT INR 1.17 (0.83-1.09) H 12/06/18 05:15 Problem List - Problems (1) Fever Assessment/Plan: afebrile tylenol and ID follow upon dc abx Code(s): R50.9 - FEVER, UNSPECIFIED (2) Lactic acid acidosis Assessment/Plan: resolves completed abx course Code(s): E87.2 - ACIDOSIS (3) Neutropenic sepsis Assessment/Plan: absolute neutrophil count noted- wbc count improving S/P iv abx ertrapenem and vancomycin S/p IR biopsy Code(s): A41.9 - SEPSIS, UNSPECIFIED ORGANISM; D70.9 - NEUTROPENIA, UNSPECIFIED (4) Status post CVA Assessment/Plan: s/p trach and peg dvt ppx Code(s): Z86.73 - PRSNL HX OF TIA (TIA), AND CEREB INFRC W/O RESID DEFICITS (5) Atrial flutter Assessment/Plan: metaprolol 100mg bid via g tube Code(s): I48.92 - UNSPECIFIED ATRIAL FLUTTER (6) Abdominal fluid collection Assessment/Plan: IR for biopsy Code(s): R18.8 - OTHER ASCITES (7) History of UTI Assessment/Plan: VRe in urine isolation Code(s): Z87.440 - PERSONAL HISTORY OF URINARY (TRACT) INFECTIONS (8) Electrolyte abnormality Assessment/Plan: hypokalemia- improved repleted Code(s): E87.8 - OTH DISORDERS OF ELECTROLYTE AND FLUID BALANCE, NEC (9) Pleural effusion Assessment/Plan: lasix cxr noted left sided pleural effusion Code(s): J90 - PLEURAL EFFUSION, NOT ELSEWHERE CLASSIFIED Assessment/Plan podaitry to see left heel open wound fungal rash noted nystatin powder
--- NOTE | 2018-12-19 15:34 | DS ---
Physical Examination Vital Signs: Vital Signs Temperature 98 F 12/19/18 11:45 Pulse Rate 124 H 12/19/18 11:18 Respiratory Rate 20 12/19/18 14:05 Blood Pressure 110/60 12/19/18 11:18 O2 Sat by Pulse Oximetry (%) 97 12/19/18 11:40 Constitutional: Yes: Calm Neck: Yes: Other (trach) Cardiovascular: Yes: Regular Rate and Rhythm, S1, S2 Respiratory: Yes: Mechanically Ventilated Gastrointestinal: Yes: Normal Bowel Sounds, Soft ...Rectal Exam: Yes: Other (rectal tube) Edema: No Neurological: Yes: Pre-Existing Deficit Labs: CBC, BMP 12/17/18 07:50 12/17/18 07:50 Discharge Summary Reason For Visit: NEUTROPENIC SEPSIS, SYSTEMIC INFLAMMATORY RESPONSE Current Active Problems Abdominal fluid collection (Acute) Afib (Acute) Atrial flutter (Acute) CVA (cerebral vascular accident) (Acute) Chronic respiratory failure (Acute) Electrolyte abnormality (Acute) Elevated alkaline phosphatase level (Acute) Fever (Acute) History of UTI (Acute) Lactic acid acidosis (Acute) Neutropenic sepsis (Acute) Pleural effusion (Acute) Status post CVA (Acute) Systemic inflammatory response syndrome (SIRS) (Acute) Transaminitis (Acute) Hospital Course: Admission Chief Complaint: sent in for fever History of Present Illness: 73 y/o male BIBEMS to [facility] ER from [facility] with fever of 106, tachycardia, and hypoxic to high 80s (per EMS crew). 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 Pt was discharged to [facility] on Wednesday. according to labs in [facility] his wbc 5.2 and creatinine 0.8 on arrival in ER temp 105.1 and wbc 1.7 and creatinine 1.2 lactic acid 3.1 patient given vancomycin and zosyn and ivf in ER trasnferred to ICU, patient stayed in icu on iv bax and on iv labetolol for afib trasnfered to the floor ct scan of abdomen fluid fluid structed near cecum bipsy done and iv abx Condition: Stable - Instructions Diet, Activity, Other Instructions: -Continue Jevity 1.5 at 45 cc/hr with 20 cc/hr water -U/S abdomen Disposition: [facility] - Home Medications Comprehensive Discharge Medication List: Ambulatory Orders Acetaminophen [Tylenol] 325 mg GT Q8H PRN 12/07/18 Collagenase Clostridium Hist. [Santyl] 1 applic TP DAILY 12/07/18 Famotidine 10 mg GT DAILY 12/07/18 Metoprolol Tartrate 100 mg GT BID 12/07/18 Multivitamins [Multivit ([facility])] 1 tab GT DAILY 12/07/18 Thiamine Mononitrate [Vitamin B-1] 100 mg GT DAILY 12/07/18 Heparin - 5,000 unit SQ BID vial 12/14/18
[2018-12-19] MEDS: MORPHINE SULFATE 2 MG/ML VIAL IVPUSH PRN (23:07)
[2018-12-19] MEDS: NYSTATIN POWDER 100,000 UNITS/GM - 15 GM TOPICAL POWDER TP SCH (23:08)
[2018-12-20] MEDS ORDERED: METOPROLOL TARTRATE 5 MG/5 ML VIAL IVPUSH ONE (00:05)
[2018-12-20] MEDS ORDERED: METOPROLOL TARTRATE 5 MG/5 ML VIAL IVPB ONE (00:15)
[2018-12-20] MEDS: MORPHINE SULFATE 2 MG/ML VIAL IVPUSH PRN ×3 (05:15→22:16)
[2018-12-20] MEDS: HEPARIN NA (PORCINE) 5,000 UNITS/ML 1ML VIAL SQ SCH ×3 (05:15→22:16)
[2018-12-20] MEDS: NYSTATIN POWDER 100,000 UNITS/GM - 15 GM TOPICAL POWDER TP SCH ×3 (05:16→22:16)
[2018-12-20 08:22] LABS: BASO % 0.9 % (0-2.0); EOS % 1.8 % (0-4.5); HEMATOCRIT 33.7 % (35.4-49); HEMOGLOBIN 10.7 GM/dL (11.7-16.9); MCH 28.6 pg (25.7-33.7); MCHC 31.8 g/dl (32.0-35.9); MEAN CELL VOLUME 89.9 fl (80-96); MEAN PLT VOLUME 10.2 fl (7.5-11.1); MONO % 10.6 % (3.8-10.2); NEUT % 71.7 % (42.8-82.8); PLATELET COUNT 207 K/MM3 (134-434); RBC 3.75 M/mm3 (4.00-5.60); RDW 18.3 % (11.9-15.9); WHITE BLOOD COUNT 5.6 K/mm3 (4.0-10.0)
--- NOTE | 2018-12-20 08:43 | DS ---
Physical Examination Vital Signs: Vital Signs Temperature 99.2 F 12/20/18 08:24 Pulse Rate 129 H 12/20/18 08:24 Respiratory Rate 24 H 12/20/18 08:24 Blood Pressure 105/61 12/20/18 08:24 O2 Sat by Pulse Oximetry (%) 95 12/19/18 21:00 Cardiovascular: Yes: Pulse Irregular, S1, S2 Respiratory: Yes: CTA Bilaterally Gastrointestinal: Yes: Normal Bowel Sounds, Soft Wound/Incision: Yes: Dressing Removed, Other (scab with surrounding erythema) Labs: CBC, BMP 12/20/18 07:18 Discharge Summary Reason For Visit: NEUTROPENIC SEPSIS, SYSTEMIC INFLAMMATORY RESPONSE Current Active Problems Abdominal fluid collection (Acute) Afib (Acute) Atrial flutter (Acute) CVA (cerebral vascular accident) (Acute) Chronic respiratory failure (Acute) Electrolyte abnormality (Acute) Elevated alkaline phosphatase level (Acute) Fever (Acute) History of UTI (Acute) Lactic acid acidosis (Acute) Neutropenic sepsis (Acute) Pleural effusion (Acute) Status post CVA (Acute) Systemic inflammatory response syndrome (SIRS) (Acute) Transaminitis (Acute) Hospital Course: 73 y/o male BIBEMS to [facility] ER from [facility] with fever of 106, tachycardia, and hypoxic to high 80s (per EMS crew). 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 Pt was discharged to [facility] on Wednesday. according to labs in [facility] his wbc 5.2 and creatinine 0.8 on arrival in ER temp 105.1 and wbc 1.7 and creatinine 1.2 lactic acid 3.1 patient given vancomycin and zosyn and ivf in ER trasnferred to ICU, patient stayed in icu on iv bax and on iv labetolol for afib trasnfered to the floor ct scan of abdomen fluid fluid structed near cecum bipsy done and iv abx - Problems (1) Fever Assessment/Plan: afebrile tylenol and ID follow upon dc abx Code(s): R50.9 - FEVER, UNSPECIFIED (2) Lactic acid acidosis Assessment/Plan: resolves completed abx course Code(s): E87.2 - ACIDOSIS (3) Neutropenic sepsis Assessment/Plan: absolute neutrophil count noted- wbc count improving S/P iv abx ertrapenem and vancomycin S/p IR biopsy Code(s): A41.9 - SEPSIS, UNSPECIFIED ORGANISM; D70.9 - NEUTROPENIA, UNSPECIFIED (4) Status post CVA Assessment/Plan: s/p trach and peg dvt ppx Code(s): Z86.73 - PRSNL HX OF TIA (TIA), AND CEREB INFRC W/O RESID DEFICITS (5) Atrial flutter Assessment/Plan: metaprolol 100mg bid via g tube monitor hr Code(s): I48.92 - UNSPECIFIED ATRIAL FLUTTER (6) Abdominal fluid collection Assessment/Plan: IR for biopsy Code(s): R18.8 - OTHER ASCITES (7) History of UTI Assessment/Plan: VRe in urine isolation Code(s): Z87.440 - PERSONAL HISTORY OF URINARY (TRACT) INFECTIONS (8) Electrolyte abnormality Assessment/Plan: hypokalemia- improved repleted Code(s): E87.8 - OTH DISORDERS OF ELECTROLYTE AND FLUID BALANCE, NEC (9) Pleural effusion Assessment/Plan: lasix cxr noted left sided pleural effusion Code(s): J90 - PLEURAL EFFUSION, NOT ELSEWHERE CLASSIFIED Assessment/Plan podaitry to see left heel open wound fungal rash noted nystatin powder Condition: Stable - Instructions Diet, Activity, Other Instructions: -Continue Jevity 1.5 at 45 cc/hr with 20 cc/hr water -podiatry follow up for left heel wound Disposition: [facility] - Home Medications Comprehensive Discharge Medication List: Ambulatory Orders Acetaminophen [Tylenol] 325 mg GT Q8H PRN 12/07/18 Collagenase Clostridium Hist. [Santyl] 1 applic TP DAILY 12/07/18 Famotidine 10 mg GT DAILY 12/07/18 Metoprolol Tartrate 100 mg GT BID 12/07/18 Multivitamins [Multivit ([facility])] 1 tab GT DAILY 12/07/18 Thiamine Mononitrate [Vitamin B-1] 100 mg GT DAILY 12/07/18 Heparin - 5,000 unit SQ BID vial 12/14/18
[2018-12-20 08:57] LABS: ALBUMIN 2.7 g/dl (3.4-5.0); BILIRUBIN,TOTAL 0.4 mg/dL (0.2-1); CALCIUM 9.2 mg/dL (8.5-10.1); CREATININE 0.7 mg/dL (0.55-1.3); POTASSIUM 3.9 mmol/L (3.5-5.1)
[2018-12-20] MEDS: METOPROLOL TARTRATE 50 MG TABLET (FP) GT SCH ×2 (09:14→22:16)
--- NOTE | 2018-12-20 11:13 | PN ---
Progress Note (short form) - Note Progress Note: PULMONARY Vented, poorly responsive. Heart rates variable. Vital Signs Period Temp Pulse Resp BP Sys/Howe Pulse Ox Last 24 Hr 98 F-99.3 F 101-150 14-28 105-131/55-82 95-97 Gen: vented, poorly responsive Heart: RRR Lung: scattered rhonchi Abd: soft, nontender Ext: no edema, left leg contracted CBC, BMP 12/20/18 07:18 12/20/18 07:18 Active Medications Bacitracin (Bacitracin -) 1 applic TP DAILY [facility] Last Admin: 12/19/18 15:02 Dose: 1 applic Heparin Sodium (Porcine) (Heparin -) 5,000 unit SQ TID [facility] Last Admin: 12/20/18 05:15 Dose: 5,000 unit Metoprolol Tartrate (Lopressor -) 100 mg GT BID [facility] Last Admin: 12/20/18 09:14 Dose: 100 mg Morphine Sulfate (Morphine Sulfate) 1 mg IVPUSH Q4H PRN PRN Reason: AGITATION Last Admin: 12/20/18 05:15 Dose: 1 mg Nystatin (Nystop Powder -) 1 applic TP TID [facility] Last Admin: 12/20/18 05:16 Dose: 1 applic Olanzapine (Zyprexa -) 2.5 mg PO HS [facility] Last Admin: 12/19/18 23:08 Dose: 2.5 mg A/P Atrial Flutter with RVR Neutropenic Severe Sepsis improved Pneumonia Lactic Acidosis Chronic Respiratory Failure Recent Hemorrhagic Stroke - rate control - continue antibiotics - monitor urine output, creatinine - continue volume assist control - not a candidate for weaning at this time given poor mental status - enteral feeds - DVT/GI prophylaxis - d/c planning in progress
--- NOTE | 2018-12-20 12:03 | EKG ---
Test Reason : Blood Pressure : / mmHG Vent. Rate : 113 BPM Atrial Rate : 330 BPM P-R Int : 000 ms QRS Dur : 080 ms QT Int : 342 ms P-R-T Axes : 254 -10 037 degrees QTc Int : 469 ms ATRIAL FLUTTER WITH VARIABLE A-V BLOCK INFERIOR INFARCT (CITED ON OR BEFORE 03-DEC-2018) ABNORMAL ECG WHEN COMPARED WITH ECG OF 03-DEC-2018 11:06, NON-SPECIFIC CHANGE IN ST SEGMENT IN INFERIOR LEADS Confirmed by Robert Elizabeth MD ([id number]) on 12/20/2018 12:02:31 PM Referred By: [place] Confirmed By:Robert Elizabeth MD
[2018-12-20] MEDS: BACITRACIN 15 GM TUBE TOPICAL OINTMENT TP SCH (12:15)
--- NOTE | 2018-12-20 15:18 | CONSULT ---
Consult - text type - Consultation Consultation Note: Podiatry Consultation: 73 year old male, s/p CVA s/p craniotomy 11/04, [facility] and [facility]. Patient chronically vent dependent and on peg. Pressure ulcer on the left lateral ankle discovered which prompted podiatric consultation. Currently patient is afebrile. PMHx: CVA, HTN, Afib, chronic vent Meds: noted ALL: NKMA KITTY: LLE: pedal pulses weakly palpable, TG wnl. There is a lateral malleolar pressure ulcer stage 4 down to bone with exposed hardware (plate and screws) noted over the lateral malleolus, no purulent drainage, no fluctuance, no streaking cellulitis, no soft tissue crepitus, no signs of active infection. No tenderness elicited on palpation. 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 Continue local care 2. Offloading measures 3. Patient would require hardware removal of lateral ankle ORIF plate and screws , bone culture and biopsy. Based on results would need 6 weeks IV abx if (+) for osteomyelitis. Would discuss this with family members in regards to patient goals and if they wish to pursue would consult ortho for hardware removal. Thank you for the courtesy of this consultation. Yung Pugh DPM
[2018-12-20 15:51] VITALS: BMI 24.7
[2018-12-20] MEDS: OLANZapine 2.5 MG TABLET PO SCH (22:16)
[2018-12-21] MEDS: HEPARIN NA (PORCINE) 5,000 UNITS/ML 1ML VIAL SQ SCH (06:34)
[2018-12-21] MEDS: MORPHINE SULFATE 2 MG/ML VIAL IVPUSH PRN (06:34)
[2018-12-21] MEDS: NYSTATIN POWDER 100,000 UNITS/GM - 15 GM TOPICAL POWDER TP SCH ×3 (06:35→22:38)
--- NOTE | 2018-12-21 09:11 | DS ---
Physical Examination Vital Signs: Vital Signs Temperature 99.4 F 12/21/18 06:00 Pulse Rate 102 H 12/21/18 06:36 Respiratory Rate 18 12/21/18 06:34 Blood Pressure 133/77 12/21/18 06:00 O2 Sat by Pulse Oximetry (%) 99 12/21/18 06:36 Cardiovascular: Yes: S1, S2 Respiratory: Yes: CTA Bilaterally, Mechanically Ventilated Gastrointestinal: Yes: Normal Bowel Sounds, Soft Extremities: Yes: Other ( left heel open wound) Labs: CBC, BMP 12/20/18 07:18 12/20/18 07:18 Discharge Summary Reason For Visit: NEUTROPENIC SEPSIS, SYSTEMIC INFLAMMATORY RESPONSE Current Active Problems Abdominal fluid collection (Acute) Afib (Acute) Atrial flutter (Acute) CVA (cerebral vascular accident) (Acute) Chronic respiratory failure (Acute) Electrolyte abnormality (Acute) Elevated alkaline phosphatase level (Acute) Fever (Acute) History of UTI (Acute) Lactic acid acidosis (Acute) Neutropenic sepsis (Acute) Pleural effusion (Acute) Status post CVA (Acute) Systemic inflammatory response syndrome (SIRS) (Acute) Transaminitis (Acute) Hospital Course: 73 y/o male BIBEMS to [facility] ER from [facility] with fever of 106, tachycardia, and hypoxic to high 80s (per EMS crew). 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 Pt was discharged to [facility] on Wednesday. according to labs in [facility] his wbc 5.2 and creatinine 0.8 on arrival in ER temp 105.1 and wbc 1.7 and creatinine 1.2 lactic acid 3.1 patient given vancomycin and zosyn and ivf in ER trasnferred to ICU, patient stayed in icu on iv bax and on iv labetolol for afib trasnfered to the floor ct scan of abdomen fluid fluid structed near cecum bipsy done and iv abx - Problems (1) Fever Assessment/Plan: afebrile tylenol and ID follow upon dc abx Code(s): R50.9 - FEVER, UNSPECIFIED (2) Lactic acid acidosis Assessment/Plan: resolves completed abx course Code(s): E87.2 - ACIDOSIS (3) Neutropenic sepsis Assessment/Plan: absolute neutrophil count noted- wbc count improving S/P iv abx ertrapenem and vancomycin S/p IR biopsy Code(s): A41.9 - SEPSIS, UNSPECIFIED ORGANISM; D70.9 - NEUTROPENIA, UNSPECIFIED (4) Status post CVA Assessment/Plan: s/p trach and peg dvt ppx Code(s): Z86.73 - PRSNL HX OF TIA (TIA), AND CEREB INFRC W/O RESID DEFICITS (5) Atrial flutter Assessment/Plan: metaprolol 100mg bid via g tube monitor hr Code(s): I48.92 - UNSPECIFIED ATRIAL FLUTTER (6) Abdominal fluid collection Assessment/Plan: IR for biopsy Code(s): R18.8 - OTHER ASCITES (7) History of UTI Assessment/Plan: VRe in urine isolation Code(s): Z87.440 - PERSONAL HISTORY OF URINARY (TRACT) INFECTIONS (8) Electrolyte abnormality Assessment/Plan: hypokalemia- improved repleted Code(s): E87.8 - OTH DISORDERS OF ELECTROLYTE AND FLUID BALANCE, NEC (9) Pleural effusion Assessment/Plan: lasix cxr noted left sided pleural effusion Code(s): J90 - PLEURAL EFFUSION, NOT ELSEWHERE CLASSIFIED (10) Ankle Ulcer Assessment/Plan: podiatry noted--recommend removal of hardware--Ortho consult Condition: Stable - Instructions Diet, Activity, Other Instructions: -Continue Jevity 1.5 at 45 cc/hr with 20 cc/hr water -podiatry follow up for left heel wound Disposition: [facility] F[facility] - Home Medications Comprehensive Discharge Medication List: Ambulatory Orders Acetaminophen [Tylenol] 325 mg GT Q8H PRN 12/07/18 Collagenase Clostridium Hist. [Santyl] 1 applic TP DAILY 12/07/18 Famotidine 10 mg GT DAILY 12/07/18 Metoprolol Tartrate 100 mg GT BID 12/07/18 Multivitamins [Multivit ([facility] Formulary)] 1 tab GT DAILY 12/07/18 Thiamine Mononitrate [Vitamin B-1] 100 mg GT DAILY 12/07/18 Heparin - 5,000 unit SQ BID vial 12/14/18
[2018-12-21] MEDS: BACITRACIN 15 GM TUBE TOPICAL OINTMENT TP SCH (09:32)
[2018-12-21] MEDS: METOPROLOL TARTRATE 50 MG TABLET (FP) GT SCH ×2 (09:32→22:38)
--- NOTE | 2018-12-21 12:02 | PN ---
Progress Note, Physician History of Present Illness: pulmonary awake,alert on vent support ac mode - Current Medication List Current Medications: Active Medications Bacitracin (Bacitracin -) 1 applic TP DAILY [facility] Last Admin: 12/21/18 09:32 Dose: 1 applic Metoprolol Tartrate (Lopressor -) 100 mg GT BID [facility] Last Admin: 12/21/18 09:32 Dose: 100 mg Morphine Sulfate (Morphine Sulfate) 1 mg IVPUSH Q4H PRN PRN Reason: AGITATION Last Admin: 12/21/18 06:34 Dose: 1 mg Nystatin (Nystop Powder -) 1 applic TP TID [facility] Last Admin: 12/21/18 06:35 Dose: 1 applic Olanzapine (Zyprexa -) 2.5 mg PO HS [facility] Last Admin: 12/20/18 22:16 Dose: 2.5 mg - Objective Vital Signs: Vital Signs Temperature 99.5 F 12/21/18 09:45 Pulse Rate 88 12/21/18 10:03 Respiratory Rate 14 12/21/18 10:03 Blood Pressure 118/78 12/21/18 09:45 O2 Sat by Pulse Oximetry (%) 98 12/21/18 08:15 Constitutional: Yes: Calm, Thin Eyes: Yes: WNL HENT: Yes: WNL Neck: Yes: Supple (trach) Cardiovascular: Yes: Regular Rate and Rhythm, S1, S2 Respiratory: Yes: Rhonchi (few scattered rhonchi) Gastrointestinal: Yes: Normal Bowel Sounds, Soft Extremities: Yes: WNL Edema: No Labs: Problem List - Problems (1) Chronic respiratory failure Code(s): J96.10 - CHRONIC RESPIRATORY FAILURE, UNSP W HYPOXIA OR HYPERCAPNIA (2) Afib Code(s): I48.91 - UNSPECIFIED ATRIAL FIBRILLATION (3) Atrial flutter Code(s): I48.92 - UNSPECIFIED ATRIAL FLUTTER (4) CVA (cerebral vascular accident) Code(s): I63.9 - CEREBRAL INFARCTION, UNSPECIFIED (5) Neutropenic sepsis Code(s): A41.9 - SEPSIS, UNSPECIFIED ORGANISM; D70.9 - NEUTROPENIA, UNSPECIFIED Assessment/Plan Atrial Flutter with RVR Neutropenic Severe Sepsis resolved Pneumonia Lactic Acidosis Chronic Respiratory Failure Recent Hemorrhagic Stroke - rate control - monitor urine output, creatinine - continue volume assist control - weaning as tolerated - enteral feeds - DVT/GI prophylaxis - Morphine prn for agitation DR BROWN
--- NOTE | 2018-12-21 12:35 | CON.ORTH ---
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: CVA (left sided hemiparesis and expressive aphasia) Cardio/Vascular: Yes: HTN Pulmonary: Yes: Other (trached, chronically vent dependent) Gastrointestinal: Yes: Other (s/p PEG) Renal/: Yes: BPH - Past Surgical History Additional Surgical History: PEG tube placement, Craniotomy - Alcohol/Substance Use Hx Alcohol Use: Yes (STOPPED 10 YEASR AGO) - Smoking History Smoking history: Unknown if ever smoked Have you smoked in the past 12 months: Yes Aproximately how many cigarettes per day: 1 If you are a former smoker, when did you quit?: 8 MONTHS AGO - Social History Usual Living Arrangement: Residential Home Medications - Allergies Allergies/Adverse Reactions: Allergies Allergy/AdvReac Type Severity Reaction Status Date / Time No Known Allergies Allergy Verified 12/01/18 04:48 - Home Medications Home Medications: Ambulatory Orders Acetaminophen [Tylenol] 325 mg GT Q8H PRN 12/07/18 Collagenase Clostridium Hist. [Santyl] 1 applic TP DAILY 12/07/18 Famotidine 10 mg GT DAILY 12/07/18 Metoprolol Tartrate 100 mg GT BID 12/07/18 Multivitamins [Multivit ([facility] Formulary)] 1 tab GT DAILY 12/07/18 Thiamine Mononitrate [Vitamin B-1] 100 mg GT DAILY 12/07/18 Heparin - 5,000 unit SQ BID vial 12/14/18 Physical Exam for Ortho Vital Signs: Vital Signs Temperature 99.5 F 12/21/18 09:45 Pulse Rate 88 12/21/18 10:03 Respiratory Rate 17 12/21/18 12:05 Blood Pressure 118/78 12/21/18 09:45 O2 Sat by Pulse Oximetry (%) 98 12/21/18 08:15 Labs: CBC, BMP 12/20/18 07:18 12/20/18 07:18 INR, PTT INR 1.17 (0.83-1.09) H 12/06/18 05:15 - Lower Extremity Ankle: Yes: Left, Other (exposed lateral plate with minimail drainage, malodorous, minimal swelling) Imaging - Results X-ray: Report Reviewed, Image Reviewed Assessment/Plan 73 year old male, s/p CVA s/p craniotomy 11/04, [facility] for temp and tachycardia. Patient chronically vent dependent and on peg. Pt has exposed hardware from previous ankle orif. Pt is afebrile with normal WBCs. 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 Elizabeth in detail No surgical intervention at this time local wound care re-consult prn
[2018-12-21] MEDS ORDERED: METOPROLOL TARTRATE 5 MG/5 ML VIAL IVPB ONE (18:51)
[2018-12-21] MEDS: OLANZapine 2.5 MG TABLET PO SCH (22:38)
[2018-12-22] MEDS: NYSTATIN POWDER 100,000 UNITS/GM - 15 GM TOPICAL POWDER TP SCH ×3 (05:02→22:18)
[2018-12-22] MEDS: BACITRACIN 15 GM TUBE TOPICAL OINTMENT TP SCH (09:07)
[2018-12-22] MEDS: METOPROLOL TARTRATE 50 MG TABLET (FP) GT SCH ×2 (09:07→22:18)
--- NOTE | 2018-12-22 11:47 | PN ---
Progress Note (short form) - Note Progress Note: PULMONARY Vented, poorly responsive. No fevers recorded. Vital Signs Period Temp Pulse Resp BP Sys/Howe Pulse Ox Last 24 Hr 98.0 F-100.0 F 72-164 14-20 100-139/63-83 96-97 Gen: vented, poorly responsive Heart: RRR Lung: scattered rhonchi Abd: soft, nontender Ext: no edema, left leg contracted CBC, BMP 12/20/18 07:18 12/20/18 07:18 Active Medications Bacitracin (Bacitracin -) 1 applic TP DAILY [facility] Last Admin: 12/22/18 09:07 Dose: 1 applic Metoprolol Tartrate (Lopressor -) 100 mg GT BID [facility] Last Admin: 12/22/18 09:07 Dose: 100 mg Nystatin (Nystop Powder -) 1 applic TP TID [facility] Last Admin: 12/22/18 05:02 Dose: 1 applic Olanzapine (Zyprexa -) 2.5 mg PO HS [facility] Last Admin: 12/21/18 22:38 Dose: 2.5 mg A/P Atrial Flutter with RVR Neutropenic Severe Sepsis improved Pneumonia Lactic Acidosis Chronic Respiratory Failure Recent Hemorrhagic Stroke - rate control - completed antibiotics - monitor urine output, creatinine - continue volume assist control - not a candidate for weaning at this time given poor mental status - enteral feeds - DVT/GI prophylaxis - d/c planning in progress
--- NOTE | 2018-12-22 12:15 | PN ---
Progress Note, Physician Chief Complaint: patient seen and examiend elevated HR atrial flutter on EKG on metroprolol 100mg bid - Current Medication List Current Medications: Active Medications Bacitracin (Bacitracin -) 1 applic TP DAILY [facility] Last Admin: 12/22/18 09:07 Dose: 1 applic Diltiazem HCl (Cardizem Cd -) 120 mg PO DAILY [facility] Metoprolol Tartrate (Lopressor -) 100 mg GT BID [facility] Last Admin: 12/22/18 09:07 Dose: 100 mg Nystatin (Nystop Powder -) 1 applic TP TID [facility] Last Admin: 12/22/18 05:02 Dose: 1 applic Olanzapine (Zyprexa -) 2.5 mg PO HS [facility] Last Admin: 12/21/18 22:38 Dose: 2.5 mg - Objective Vital Signs: Vital Signs Temperature 99.8 F H 12/22/18 09:11 Pulse Rate 119 H 12/22/18 09:11 Respiratory Rate 20 12/22/18 11:34 Blood Pressure 125/83 12/22/18 09:11 O2 Sat by Pulse Oximetry (%) 97 12/22/18 08:19 Constitutional: Yes: Calm Cardiovascular: Yes: Tachycardia, S1, S2 Respiratory: Yes: Mechanically Ventilated Gastrointestinal: Yes: Normal Bowel Sounds, Soft Neurological: Yes: Pre-Existing Deficit Labs: CBC, BMP 12/20/18 07:18 12/20/18 07:18 INR, PTT INR 1.17 (0.83-1.09) H 12/06/18 05:15 Problem List - Problems (1) Atrial flutter Assessment/Plan: metaprolol 100mg bid via g tube start cardizem 120mg daily Code(s): I48.92 - UNSPECIFIED ATRIAL FLUTTER (2) Fever Assessment/Plan: completed abx course Code(s): R50.9 - FEVER, UNSPECIFIED (3) Lactic acid acidosis Assessment/Plan: resolves completed abx course Code(s): E87.2 - ACIDOSIS (4) Neutropenic sepsis Assessment/Plan: absolute neutrophil count noted- wbc count improving S/P iv abx ertrapenem and vancomycin S/p IR biopsy Code(s): A41.9 - SEPSIS, UNSPECIFIED ORGANISM; D70.9 - NEUTROPENIA, UNSPECIFIED (5) Status post CVA Assessment/Plan: s/p trach and peg dvt ppx (6) Abdominal fluid collection Assessment/Plan: IR for biopsy Code(s): R18.8 - OTHER ASCITES (7) History of UTI Assessment/Plan: VRe in urine isolation Code(s): Z87.440 - PERSONAL HISTORY OF URINARY (TRACT) INFECTIONS (8) Electrolyte abnormality Assessment/Plan: hypokalemia- improved repleted Code(s): E87.8 - OTH DISORDERS OF ELECTROLYTE AND FLUID BALANCE, NEC (9) Pleural effusion Assessment/Plan: lasix cxr noted left sided pleural effusion Code(s): J90 - PLEURAL EFFUSION, NOT ELSEWHERE CLASSIFIED Assessment/Plan if HR improves on cardizem then transfer to SNF
--- NOTE | 2018-12-22 12:54 | EKG ---
Test Reason : Blood Pressure : / mmHG Vent. Rate : 165 BPM Atrial Rate : 330 BPM P-R Int : 000 ms QRS Dur : 128 ms QT Int : 280 ms P-R-T Axes : 246 009 -29 degrees QTc Int : 463 ms ATRIAL FLUTTER WITH 2:1 A-V CONDUCTION NON-SPECIFIC INTRA-VENTRICULAR CONDUCTION BLOCK ABNORMAL ECG WHEN COMPARED WITH ECG OF 20-DEC-2018 09:40, QRS DURATION HAS INCREASED CRITERIA FOR INFERIOR INFARCT ARE NO LONGER PRESENT ST NOW DEPRESSED IN INFERIOR LEADS T WAVE INVERSION MORE EVIDENT IN INFERIOR LEADS NONSPECIFIC T WAVE ABNORMALITY NOW EVIDENT IN ANTEROLATERAL LEADS Confirmed by SUNNY CAMPOS MD ([id number]) on 12/22/2018 12:53:32 PM Referred By: Confirmed By:SUNNY CAMPOS MD
--- NOTE | 2018-12-22 14:08 | PN ---
Progress Note, Physician Chief Complaint: asked to re-evaluate due to aflutter with RVR History of Present Illness: 73 y/o male BIBEMS to [facility] ER from [facility] with fever of 106, tachycardia, and hypoxic to high 80s (per EMS crew). 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 Found with neutropenic fever, lactic acidosis and respiratory failure. Transferred from ICU to floor, noted with tachycardia, HR 150 ECG c/w atrial flutter with 2:1 block. Given IV amiodarone then IV diltiazem without effect. Transferred to ICU. Now on floor awaiting disposition. He was controlled on metoprolol, now added diltiazem. He continues to remain in an atrial arrhythmia. - Current Medication List Current Medications: Active Medications Bacitracin (Bacitracin -) 1 applic TP DAILY [facility] Last Admin: 12/22/18 09:07 Dose: 1 applic Diltiazem HCl (Cardizem -) 30 mg PO Q6HPO [facility] Metoprolol Tartrate (Lopressor -) 100 mg GT BID [facility] Last Admin: 12/22/18 09:07 Dose: 100 mg Nystatin (Nystop Powder -) 1 applic TP TID [facility] Last Admin: 12/22/18 05:02 Dose: 1 applic Olanzapine (Zyprexa -) 2.5 mg PO HS [facility] Last Admin: 12/21/18 22:38 Dose: 2.5 mg - Objective Vital Signs: Vital Signs Temperature 99.8 F H 12/22/18 09:11 Pulse Rate 119 H 12/22/18 09:11 Respiratory Rate 20 12/22/18 11:34 Blood Pressure 125/83 12/22/18 09:11 O2 Sat by Pulse Oximetry (%) 96 12/22/18 09:00 Constitutional: Yes: No Distress, Calm Eyes: Yes: EOM Intact HENT: Yes: Normocephalic Neck: Yes: Trachea Midline Cardiovascular: Yes: Tachycardia, Pulse Irregular Respiratory: Yes: CTA Bilaterally, Mechanically Ventilated Extremities: Yes: WNL Edema: No Labs: CBC, BMP 12/20/18 07:18 12/20/18 07:18 INR, PTT INR 1.17 (0.83-1.09) H 12/06/18 05:15 Assessment/Plan 73 y/o male BIBEMS to [facility] ER from [facility] with fever of 106, tachycardia, and hypoxic to high 80s (per EMS crew). 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 Found with neutropenic fever, lactic acidosis and respiratory failure. Transferred from ICU to floor, noted with tachycardia, HR 150 ECG c/w atrial flutter with 2:1 block. Given IV amiodarone then IV diltiazem without effect. Transferred to ICU. He continues to remain in an atrial arrhythmia though HR is slower. --presistent AF now recurrent RVR. --Continue metoprolol for rate control. --Not candidate for AC due to ICH --add diltiazem 30 q6h. --dc when rates are controlled.
[2018-12-22] MEDS: dilTIAZem HCL 30 MG TABLET (FP) PO SCH ×3 (14:44→23:58)
[2018-12-22] MEDS: OLANZapine 2.5 MG TABLET PO SCH (22:18)
[2018-12-23] MEDS: NYSTATIN POWDER 100,000 UNITS/GM - 15 GM TOPICAL POWDER TP SCH ×2 (05:00→15:45)
[2018-12-23] MEDS: dilTIAZem HCL 30 MG TABLET (FP) PO SCH ×2 (05:00→12:06)
--- NOTE | 2018-12-23 11:34 | PN ---
Progress Note, Physician Chief Complaint: patient seen and examined HR is much better controlled on cardizem as well as metoprolol - Current Medication List Current Medications: Active Medications Bacitracin (Bacitracin -) 1 applic TP DAILY [facility] Last Admin: 12/22/18 09:07 Dose: 1 applic Diltiazem HCl (Cardizem -) 30 mg PO Q6HPO [facility] Last Admin: 12/23/18 05:00 Dose: 30 mg Metoprolol Tartrate (Lopressor -) 100 mg GT BID [facility] Last Admin: 12/22/18 22:18 Dose: 100 mg Nystatin (Nystop Powder -) 1 applic TP TID [facility] Last Admin: 12/23/18 05:00 Dose: 1 applic Olanzapine (Zyprexa -) 2.5 mg PO HS [facility] Last Admin: 12/22/18 22:18 Dose: 2.5 mg - Objective Vital Signs: Vital Signs Temperature 99.3 F 12/23/18 06:00 Pulse Rate 86 12/23/18 10:20 Respiratory Rate 19 12/23/18 10:10 Blood Pressure 102/60 12/23/18 06:00 O2 Sat by Pulse Oximetry (%) 97 12/23/18 10:20 Constitutional: Yes: Calm Neck: Yes: Other (trach) Cardiovascular: Yes: Regular Rate and Rhythm, S1, S2 Respiratory: Yes: CTA Bilaterally, Mechanically Ventilated Gastrointestinal: Yes: Normal Bowel Sounds, Soft, Other (g tube) Edema: No Neurological: Yes: Pre-Existing Deficit (left sided weakness) Labs: CBC, BMP 12/20/18 07:18 12/20/18 07:18 INR, PTT INR 1.17 (0.83-1.09) H 12/06/18 05:15 Problem List - Problems (1) Atrial flutter Assessment/Plan: metaprolol 100mg bid via g tube started cardizem 30mg po q6hr and now HR is well controlled Code(s): I48.92 - UNSPECIFIED ATRIAL FLUTTER (2) Fever Assessment/Plan: completed abx course Microbiology 12/16/18 13:30 Blood - Peripheral Venous Blood Culture - Final NO GROWTH AFTER 5 DAYS INCUBATION 12/16/18 13:00 Urine - Urine - Catheterized Urine Culture - Final NO GROWTH OBTAINED 12/16/18 12:10 Blood - Peripheral Venous Blood Culture - Final NO GROWTH AFTER 5 DAYS INCUBATION Code(s): R50.9 - FEVER, UNSPECIFIED (3) Lactic acid acidosis Assessment/Plan: resolves completed abx course Code(s): E87.2 - ACIDOSIS (4) Neutropenic sepsis Assessment/Plan: absolute neutrophil count improved, wbc normal S/P iv abx ertrapenem and vancomycin S/p IR biopsy Code(s): A41.9 - SEPSIS, UNSPECIFIED ORGANISM; D70.9 - NEUTROPENIA, UNSPECIFIED (5) Status post CVA Assessment/Plan: s/p trach and peg dvt ppx left sided weakness hand mitten on right hand for safety so as not to pull out devices (6) Abdominal fluid collection Assessment/Plan: IR for biopsy Code(s): R18.8 - OTHER ASCITES (7) History of UTI Assessment/Plan: VRe in urine isolation Code(s): Z87.440 - PERSONAL HISTORY OF URINARY (TRACT) INFECTIONS (8) Electrolyte abnormality Assessment/Plan: hypokalemia- improved repleted Code(s): E87.8 - OTH DISORDERS OF ELECTROLYTE AND FLUID BALANCE, NEC (9) Pleural effusion Assessment/Plan: s/p lasix cxr noted left sided pleural effusion slightly decreased Code(s): J90 - PLEURAL EFFUSION, NOT ELSEWHERE CLASSIFIED Assessment/Plan plan DC to [facility] with the mitten for safety reason to prevent pulling out equipment
[2018-12-23] MEDS ORDERED: BACITRACIN 15 GM TUBE TOPICAL OINTMENT TP SCH (11:37)
[2018-12-23] MEDS: METOPROLOL TARTRATE 50 MG TABLET (FP) GT SCH (12:06)
[2018-12-23] MEDS: BACITRACIN 15 GM TUBE TOPICAL OINTMENT TP SCH (12:07)
--- NOTE | 2018-12-23 13:24 | PN ---
Progress Note (short form) - Note Progress Note: PULMONARY Vented, poorly responsive low grade temp Gen: vented, poorly responsive Heart: RRR Lung: scattered rhonchi Abd: soft, nontender Ext: no edema, left leg contracted Active Medications reviewed A/P Atrial Flutter with RVR Neutropenic Severe Sepsis improved Pneumonia Lactic Acidosis Chronic Respiratory Failure Recent Hemorrhagic Stroke - rate control - completed antibiotics - monitor urine output, creatinine - continue volume assist control - not a candidate for weaning at this time given poor mental status - enteral feeds - DVT/GI prophylaxis Molly CA MD
--- NOTE | 2018-12-23 13:37 | PN ---
Progress Note, Physician Chief Complaint: heart rates improved today. History of Present Illness: 73 y/o male BIBEMS to [facility] ER from [facility] with fever of 106, tachycardia, and hypoxic to high 80s (per EMS crew). The pt is s/p trach and PEG dependent s/p Right MCA CVA one month ago complicated by ICH s/p craniotomy at [facility]. Found with neutropenic fever, lactic acidosis and respiratory failure. Transferred from ICU to floor, noted with tachycardia, HR 150 ECG c/w atrial flutter with 2:1 block. Given IV amiodarone then IV diltiazem without effect. Transferred to ICU. Now on floor awaiting disposition. He was controlled on metoprolol, now added diltiazem. He continues to remain in an atrial arrhythmia. - Current Medication List Current Medications: Active Medications Bacitracin (Bacitracin -) 1 applic TP DAILY [facility] Diltiazem HCl (Cardizem -) 30 mg PO Q6HPO [facility] Last Admin: 12/23/18 12:06 Dose: 30 mg Metoprolol Tartrate (Lopressor -) 100 mg GT BID [facility] Last Admin: 12/23/18 12:06 Dose: 100 mg Nystatin (Nystop Powder -) 1 applic TP TID [facility] Last Admin: 12/23/18 05:00 Dose: 1 applic Olanzapine (Zyprexa -) 2.5 mg PO HS [facility] Last Admin: 12/22/18 22:18 Dose: 2.5 mg - Objective Vital Signs: Vital Signs Temperature 99.3 F 12/23/18 06:00 Pulse Rate 86 12/23/18 10:20 Respiratory Rate 19 12/23/18 10:10 Blood Pressure 102/60 12/23/18 06:00 O2 Sat by Pulse Oximetry (%) 97 12/23/18 10:20 Constitutional: Yes: No Distress, Calm Eyes: Yes: EOM Intact HENT: Yes: Normocephalic Neck: Yes: Trachea Midline Cardiovascular: Yes: Regular Rate and Rhythm Respiratory: Yes: Mechanically Ventilated Gastrointestinal: Yes: Normal Bowel Sounds, Soft Extremities: Yes: WNL Edema: No Labs: CBC, BMP 12/20/18 07:18 12/20/18 07:18 INR, PTT INR 1.17 (0.83-1.09) H 12/06/18 05:15 Assessment/Plan 73 y/o male BIBEMS to [facility] ER from [facility] with fever of 106, tachycardia, and hypoxic to high 80s (per EMS crew). The pt is s/p trach and PEG dependent s/p Right MCA CVA one month ago complicated by ICH s/p craniotomy at [facility]. Found with neutropenic fever, lactic acidosis and respiratory failure. Transferred from ICU to floor, noted with tachycardia, HR 150 ECG c/w atrial flutter with 2:1 block. Given IV amiodarone then IV diltiazem without effect. Transferred to ICU. He continues to remain in an atrial arrhythmia though HR is slower. --presistent AF now recurrent RVR. --Continue metoprolol for rate control. --Not candidate for AC due to ICH --continue diltiazem 30 q6h. --will follow as needed.
[2018-12-23 15:32] VITALS: TEMP 98.7
[2018-12-23 15:41] VITALS: BP 123/69; PULSE 82
== END 2018-12-23 16:58 | DRG 870 ==
LOC: JER 04:28 → JERBED 05:38 → JICU 08:54 → J5S 12-02 23:14 → JICU 12-03 05:20 → J5S 12-08 00:20
PROVIDERS: ADMIT Family Medicine; ATTEND Family Medicine
PROC: 5A1955Z Respiratory Ventilation, Greater than 96 Consecutive Hours (ICD-10-PCS; principal; 2018-12-01)
PROC: 05H533Z Insertion of Infusion Device into Right Subclavian Vein, Percutaneous Approach (ICD-10-PCS; 2018-12-01)
PROC: B516ZZA Fluoroscopy of Right Subclavian Vein, Guidance (ICD-10-PCS; 2018-12-01)
PROC: 0J9C3ZX Drainage of Pelvic Region Subcutaneous Tissue and Fascia, Percutaneous Approach, Diagnostic (ICD-10-PCS; 2018-12-05)
PROC: 0H9LXZX Drainage of Left Lower Leg Skin, External Approach, Diagnostic (ICD-10-PCS; 2018-12-05)
DX: A41.89 Other specified sepsis (principal); J69.0 Pneumonitis due to inhalation of food and vomit; L89.524 Pressure ulcer of left ankle, stage 4; Z99.11 Dependence on respirator [ventilator] status; E87.2 Acidosis; I48.92 Unspecified atrial flutter; I69.354 Hemiplegia and hemiparesis following cerebral infarction affecting left non-dominant side; J96.11 Chronic respiratory failure with hypoxia; R18.8 Other ascites; I48.1 Persistent atrial fibrillation; M86.9 Osteomyelitis, unspecified; R65.20 Severe sepsis without septic shock; L98.499 Non-pressure chronic ulcer of skin of other sites with unspecified severity; E87.6 Hypokalemia; E83.42 Hypomagnesemia; I44.1 Atrioventricular block, second degree; D70.8 Other neutropenia; I69.320 Aphasia following cerebral infarction; Z93.1 Gastrostomy status; Z93.0 Tracheostomy status; R00.0 Tachycardia, unspecified; N40.0 Benign prostatic hyperplasia without lower urinary tract symptoms; D64.9 Anemia, unspecified; K21.9 Gastro-esophageal reflux disease without esophagitis; Z87.440 Personal history of urinary (tract) infections; F10.21 Alcohol dependence, in remission
CPT/HCPCS: 36415; 36430; 36511; 36600; 49180; 70450-TC; 71045-TC-FY; 73610-TC-LT-FY; 74176-TC; 74177-TC; 76705-TC; 77012-TC; 80048; 80053; 81003; 82375; 82607; 82747; 82803; 82962; 82977; 83050; 83605; 83735; 84080; 84100; 84443; 84484; 85014; 85025; 85027; 85610; 85730; 86850; 86900; 86901; 86922; 87040; 87070; 87086; 87186; 87205; 87899; 88305-TC; 93005; 93010; 93306-TC; 93971; 94002; 97161-GP; 99285-25; C1769; G0480; J0131; J0282; J1644; J7030; P9038; P9058